=== PATIENT | male | born 1955 | race Caucasian/White ===

== ENCOUNTER 2019-07-19 10:16 | Outpatient (CLI) | payer OTHER, SELFPAY ==
--- NOTE | ~2019-07-19 | NM_ITS ---
EXAMINATION: NM bone scan limited area DATE: 07/19/2019 14:31 INDICATION: Knee pain TECHNIQUE: 25.1 mCi Tc-99m HDP was administered intravenously. Delayed grams or obtained of the bila teral knees, feet and ankles. COMPARISON: Bilateral knee MRI studies dated 06/21/2019, bilateral ankle MRI studies dated 05/16/2019 and bilateral knee radiographs dated 04/23/2019. FINDINGS: There is relatively symmetric mild increased joint centered activity at the patellofemoral and medial compartments of both knees is likely degenerative in etiology. Additional relatively symmetric distr ibution of joint centered uptake in the bilateral feet and ankles most prominent at the bilateral fir st metatarsophalangeal joints and in the region of the tarsal metatarsal and talonavicular joints. Th e degree of uptake appears lightly greater throughout the right foot pain in the left foot. IMPRESSION: 1. Typical pattern of likely degenerative joint centered uptake in the bilateral knees with is relati vely symmetric in the bilateral feet with the distribution is similar but with increased activity on the right. The asymmetry in the feet could be due to slight differences in severity of degenerative d isease or due to differences in perfusion potentially related to either arterial or venous insufficie ncy. Reviewed, dictated and finalized at location A. [facility] IMPRESSION: 1. Typical pattern of likely degenerative joint centered uptake in the bilatera l knees with is relatively symmetric in the bilateral feet with the distributio n is similar but with increased activity on the right. The asymmetry in the fee t could be due to slight differences in severity of degenerative disease or due to differences in perfusion potentially related to either arterial or venous i nsufficiency.
== END 2019-07-19 10:17 | disposition home or self-care (01) ==
LOC: ANHIMG 10:23
PROVIDERS: PCP Emergency Medicine; Visit Provider Orthopaedic Surgery
DX: M54.5 Low back pain (principal); R93.7 Abnormal findings on diagnostic imaging of other parts of musculoskeletal system
CPT/HCPCS: 78300; A9561

== ENCOUNTER 2020-01-24 01:23 | Inpatient (IN) | payer OTHER, MEDICAID, SELFPAY ==
[2020-01-24] VITALS (22 sets, daily range): BP systolic 135–158; BP diastolic 54–76; PULSE 68–97; RESP 17–33; TEMP 36.5–37.2; O2SAT 79–100; BMI 22.8
--- NOTE | ~2020-01-24 | XR_ITS ---
EXAMINATION: XR chest 1V portable DATE: 01/25/2020 06:34 INDICATION: Respiratory failure. TECHNIQUE: A single frontal view of the chest was obtained. COMPARISON: Chest 2 views 01/24/2020, chest CT 04/26/2019 FINDINGS: The lungs are hyperexpanded with lucencies, consistent with emphysema. There are airspace o pacities in right midlung zone. There is a small left pleural effusion. No pneumothorax. The right la teral costophrenic angle is excluded. The heart size is normal. There are changes of anterior fusion procedure in cervicothoracic spine and posterior fusion procedure in cervical spine. IMPRESSION: 1. Stable airspace opacities in right midlung zone, consistent with pneumonia. 2. Stable small left pleural effusion. 3. Severe emphysema. Reviewed, dictated and finalized at location A.
--- NOTE | ~2020-01-24 | XR_ITS ---
EXAMINATION: XR chest 2V DATE: 01/24/2020 01:57 INDICATION: Shortness of breath. Chronic obstructive pulmonary disease. TECHNIQUE: Frontal and lateral views of the chest were obtained. COMPARISON: Chest 2 views 06/09/2019, chest CT 04/26/2019 FINDINGS: The lungs are hyperexpanded with lucencies, consistent with emphysema. There is a small lef t pleural effusion. There are airspace opacities in right midlung zone. No pneumothorax. The heart si ze is normal. Calcified left hilar lymph nodes are consistent with old granulomatous disease. There a re changes of posterior fusion procedure in cervical spine and anterior fusion procedure in cervicoth oracic spine. IMPRESSION: 1. Worsened airspace opacities in right midlung zone, consistent with pneumonia. 2. Severe emphysema. 3. Small left pleural effusion. Reviewed, dictated and finalized at location A. IMPRESSION: 1. Worsened airspace opacities in right midlung zone, consistent with pneumonia . 2. Severe emphysema. 3. Small left pleural effusion.
--- NOTE | ~2020-01-24 | XR_ITS ---
EXAMINATION: XR chest 1V portable INDICATION: Shortness of breath TECHNIQUE: Portable AP chest at 0856 hours COMPARISON: 01/25/2020 FINDINGS: The lungs are hyperinflated. Airspace opacities of the right midlung zone persist without s ignificant change. There is no pleural effusion or pneumothorax. The cardiomediastinal silhouette is stable. Surgical changes are noted in the lower cervical spine and at the cervicothoracic junction. IMPRESSION: 1. Airspace opacities of the right midlung zone without significant change, consistent with pneumonia . Reviewed, dictated and finalized at location A. IMPRESSION: 1. Airspace opacities of the right midlung zone without significant change, con sistent with pneumonia.
--- NOTE | ~2020-01-24 | XR_ITS ---
EXAMINATION: XR chest 1V portable DATE: 01/26/2020 06:08 INDICATION: Respiratory failure. TECHNIQUE: A single frontal view of the chest was obtained on 2 radiographs. COMPARISON: Chest single view 01/25/2020 FINDINGS: The lungs are hyperexpanded with lucencies, consistent with emphysema. There are airspace o pacities in right midlung zone. There is a small left pleural effusion. No pneumothorax. The heart si ze is normal. There are changes of anterior fusion procedure in cervicothoracic spine and posterior f usion procedure in cervical spine. IMPRESSION: 1. Stable airspace opacities in right midlung zone, consistent with pneumonia. 2. Stable small left pleural effusion. 3. Severe emphysema. Reviewed, dictated and finalized at location A.
--- NOTE | ~2020-01-24 | XR_ITS ---
EXAMINATION: XR chest 1V portable INDICATION: Respiratory failure TECHNIQUE: Portable AP chest at 0557 hours COMPARISON: 01/26/2020 FINDINGS: Airspace opacities of the right midlung zone persist without significant change. There is n o pleural effusion or pneumothorax. The cardiomediastinal silhouette is normal. IMPRESSION: 1. Stable airspace opacities of the right midlung zone, consistent with pneumonia. Reviewed, dictated and finalized at location A. IMPRESSION: 1. Stable airspace opacities of the right midlung zone, consistent with pneumon ia.
--- NOTE | ~2020-01-24 | XR_ITS ---
EXAMINATION: XR chest 1V portable EXAM DATE: 01/31/2020 06:27 INDICATION: Follow-up infiltrates. TECHNIQUE: Portable AP frontal chest x-ray was obtained. Comparison is made to prior examination from 01/27/2020. FINDINGS: Significant interval progression in the previously seen small amount of acute airspace dise ase with now large amount of right mid and lower lung opacification with small regions of confluence. Development of small right pleural effusion. Only small amount of left-sided airspace disease. Asymm etry suggests this is most likely infection. No pneumothorax. Cardiomediastinal silhouette is normal. Cervical fusion hardware. There is aortic arteriosclerosis. IMPRESSION: 1. Significant progression in now extensive right-sided, small left-sided acute airspace disease lik sarita infection. Reviewed, dictated and finalized at location A. IMPRESSION: 1. Significant progression in now extensive right-sided, small left-sided acut e airspace disease likely infection.
--- NOTE | 2020-01-24 01:41 | ECG_ITS ---
Measurements Intervals [place] Rate: 84 P: 86 PA: 175 QRS: 77 QRSD: 101 T: 82 QT: 352 QTc: 417 Interpretive Statements SINUS RHYTHM POSSIBLE RIGHT ATRIAL ENLARGEMENT LEFT ATRIAL ENLARGEMENT BASELINE WANDER- I, II, III, AVL, AVF BORDERLINE ECG Electronically Signed On 01-24-2020 7:14:17 CDT by Wojciech Michaud D.O.
[2020-01-24] MEDS: ALBUTEROL SULFATE (*SP) AEROSOL 1 PUFF 8 PUFF INHALATION (02:23)
[2020-01-24 02:34] LABS: Base Excess ABG 22.9 mEq/l (+/-2.0); Carboxyhemoglobin 0.7 % THb (0-2.0); Fractional Inspired Oxygen 100 %; HCO3 ABG 57.9 mEq/l (22.0-26.0); Methemoglobin ABG 0.4 %THb (0-1.5); Oxygen Content ABG 17.3 %vol (16.0-22.0); Oxygen Saturation ABG 99.2 % (95.0-100.0); Oxyhemoglobin 97.9 % THb (90.0-100.0); PO2 ABG 237.4 mmHg (80.0-100.0); PO2 FiO2 Ratio Arterial Blood 2.37 %; Total Hemoglobin 12.2 g/dL (12.0-18.0)
[2020-01-24 02:35] LABS: Device NON-REBREATHER MASK; PCO2 ABG 157.6 mmHg (35.0-45.0); Site Drawn RIGHT BRACHIAL; pH ABG 7.183 (7.350-7.450)
[2020-01-24 02:38] LABS: Basophils Percent Auto 0.1 % (0.2-1.2); Hemoglobin 11.6 g/dL (14.0-18.0); Immature Granulocyte Absolute 0.12 K/mm3 (0.00-0.031); Immature Granulocyte Percent A 0.7 % (0-0.5); Lymphocytes Percent Auto 4.3 % (18.3-44.2); Mean Corpuscular HGB Conc 31.4 g/dl (32-36); Mean Corpuscular Volume 92.5 fl (80-100); Mean Platelet Volume 8.5 fl (7.4-10.4); Monocytes Absolute Auto 0.5 K/mm3 (0.1-0.6); Neutrophils Percent Auto 91.9 % (45.5-73.1); Platelet Count Result 160 k/mm3 (150-375); Red Cell Distribution Width 11.8 % (11.5-14.5); White Blood Count 16.4 K/mm3 (4.5-10.0)
[2020-01-24 02:46] LABS: Lactic Acid Reflex 0.5 mmol/L (0.7-2.1)
[2020-01-24 02:46] LABS: INR 1.1; Prothrombin Time 13.7 Seconds (11.1-14.7)
[2020-01-24 02:48] LABS: Lactate Dehydrogenase 414 U/L (313-618)
[2020-01-24 02:49] LABS: D Dimer 0.98 ug/mL (<0.48)
[2020-01-24 02:54] LABS: Anion Gap 14.99999 mmol/L (8-16); Blood Urea Nitrogen 27 mg/dL (9-20); Calcium 8.8 mg/dL (8.4-10.2); Carbon Dioxide > 40 mmol/L (22-30); Chloride 77 mmol/L (98-107); Estimated CRCL calculation 161 ml/min; Estimated Glomerular Filt Rate > 60; Glucose 137 mg/dL (75-110); Potassium 4.7 mmol/L (3.4-5.0); Sodium 132 mmol/L (137-145)
[2020-01-24 03:00] LABS: NT Pro B Type Natriuretic Pept 164 PG/ML (5-100); Troponin I < 0.012 ng/mL (0.000-0.034)
[2020-01-24 03:03] LABS: CRP 15.5 mg/dL (<1.0)
[2020-01-24] MEDS: SODIUM CHLORIDE 0.9% IV 1,000 ML 999 ML IV CONT (03:21)
--- NOTE | 2020-01-24 04:01 | ED.SOB ---
HPI - SOB/Dyspnea General Chief Complaint: Shortness of Breath/Dyspnea Stated Complaint: cp/sob Time Seen by Provider: 01/24/20 01:41 Source: patient Mode of arrival: EMS History of Present Illness HPI Narrative: This patient is a 64 year old male from [facility] who presents for evaluation of shortness of breath. PAtient has been having worsening productive cough and sob for 1 week. He has been evaluated at [facility] 3 times this week. He states he was seen today and he was diagnosed with pneumonia before discharge. Patient requested to be sent to [facility]. Staff at the [facility] reports patients' oxygen saturation dropped in to 60%. He also reported that he had chest pain but he denies pain current. He was on 2.5 L NC with oxygen saturation mid 90%. Related Data Home Medications Medication Instructions Recorded Confirmed carvedilol 6.25 mg tablet 6.25 mg PO BID tablet 05/08/19 amlodipine 10 mg PO DAILY 01/24/20 atorvastatin 01/24/20 azithromycin 01/24/20 besifloxacin [Besivance] 1 drp RIGHTEYE TID 01/24/20 01/24/20 bisacodyl [Dulcolax (bisacodyl)] 10 mg FL DAILY PRN 01/24/20 01/24/20 budesonide mg 01/24/20 bupropion HCl mg PO 01/24/20 carvedilol 01/24/20 diclofenac sodium PO 01/24/20 docusate sodium [Colace] PO 01/24/20 doxycycline hyclate 01/24/20 gabapentin 01/24/20 hydroxyzine HCl 01/24/20 ipratropium-albuterol ml INHALATION 01/24/20 loteprednol etabonate [Lotemax SM] 01/24/20 melatonin-pyridoxine (vit B6) 1 tablet PO HS PRN 01/24/20 01/24/20 [Melatonin (with B6)] prednisone 01/24/20 pregabalin 01/24/20 pregabalin [Lyrica] 150 mg PO BID 01/24/20 mvuxkenyombulyg-ZG-jazagmrgvot tablet PO 01/24/20 tamsulosin mg PO 01/24/20 Allergies Allergy/AdvReac Type Severity Reaction Status Date / Time No Known Allergies Allergy Verified 01/24/20 01:33 Review of Systems Review of Systems: All systems reviewed & are unremarkable except as noted in HPI and below Constitutional: Constitutional: Denies chills and Denies fever(s) ENT: Denies dizziness Cardiovascular: Cardiovascular: Reports chest pain Respiratory: Respiratory: Reports cough, Reports dyspnea and Reports wheezing Gastrointestinal: Gastrointestinal: Denies abdominal pain, Denies diarrhea, Denies nausea and Denies vomiting PMFSH Past Medical History Medical History Anxiety BPH (benign prostatic hyperplasia) Chronic lower back pain COPD (chronic obstructive pulmonary disease) Depression Emphysema of lung Generalized weakness HTN (hypertension) Inguinal hernia September 2011 Lung nodules RLL Neck injury Normocytic anemia Pneumonia Protein calorie malnutrition Surgical History Surgical History History of elbow surgery History of inguinal hernia repair History of spinal surgery C3-C6 (C3, 4, and 5 removed and replaced with hardware) post neck injury in April 2003 with nerve damage History of tonsillectomy History of vascular surgery Stents placed in lt leg Social History Social History Smoking status: Former smoker Smoking end date: 06/07/15 Alcohol intake: former Drinks per week: 0 Substance use: former Gender identity (if verbalized by the patient): Male Spiritual care concerns: No Agree to blood products: Yes Exam Const: General: alert and ill appearing acutely Orientation/consciousness: patient oriented x3 HENMT: Face and sinus: face symmetric Eyes: EOM: EOMs intact bilaterally Resp: Effort & Inspection: labored, tachypneic and uses accessory muscles Auscultation: rhonchi lower bilaterally Cardio: Rate: regular rate Rhythm: regular rhythm Heart sounds: no murmurs GI: GI Palp: Yes Soft to palpation, No Tenderness to palpation present (GI), No Guarding due to palpation p
[2020-01-24 04:19] LABS: Alveolar/Arterial O2 Gradient 72.2 mmHg; Base Excess ABG 11.3 mEq/l (+/-2.0); Fractional Inspired Oxygen 40 %; HCO3 ABG 43.6 mEq/l (22.0-26.0); Oxygen Content ABG 15.4 %vol (16.0-22.0); Oxygen Saturation ABG 90.5 % (95.0-100.0); Oxyhemoglobin 92.5 % THb (90.0-100.0); PO2 ABG 77.1 mmHg (80.0-100.0); PO2 FiO2 Ratio Arterial Blood 1.93 %; Total Hemoglobin 11.8 g/dL (12.0-18.0); pH ABG 7.185 (7.350-7.450)
[2020-01-24 04:20] LABS: Device NON-INVASIVE VENT; Non-Invasive Expiratory Pressure 6 CMH2O; Non-Invasive Inspiratory Pressure 14 CMH2O; Non-Invasive Vent Rate 22 /MIN; PCO2 ABG 118.2 mmHg (35.0-45.0); Site Drawn RIGHT BRACHIAL
[2020-01-24] MEDS: methylPREDNISolone SOD SUCC 125 MG VIAL IV PUSH (04:55)
--- NOTE | 2020-01-24 08:27 | PC.NURSE ---
This patient, Angus Stovall, was admitted to Intensive Care Unit-1 on 01/24/20 @ 0710. Oxygen and monitors applied. Patient oriented to hospital policies and general routines including ID bracelet, bed and alarms, visiting hours, pain management, procedures, bathroom and other care routines, personal items, smoking policy, room service/diet, and visiting hours. Valuables list has been completed. Information on how to activate the Rapid Response Team has been discussed. Patient is encouraged to report perceived risks to care and to ask questions if they do not understand what they are told or what they should do.
[2020-01-24 09:33] LABS: Alveolar/Arterial O2 Gradient 254.1 mmHg; Base Excess ABG 16.5 mEq/l (+/-2.0); Fractional Inspired Oxygen 60 %; HCO3 ABG 47.5 mEq/l (22.0-26.0); Oxygen Content ABG 14.8 %vol (16.0-22.0); Oxyhemoglobin 89.1 % THb (90.0-100.0); PO2 ABG 59.4 mmHg (80.0-100.0); PO2 FiO2 Ratio Arterial Blood 0.99 %; Total Hemoglobin 11.8 g/dL (12.0-18.0)
[2020-01-24 09:36] LABS: pH ABG 7.278 (7.350-7.450)
[2020-01-24 09:37] LABS: Device NON-INVASIVE VENT; Modified Allen's Test Pass; Non-Invasive Expiratory Pressure 10 CMH2O; Non-Invasive Inspiratory Pressure 20 CMH2O; Non-Invasive Vent Rate 22 /MIN; PCO2 ABG 103.9 mmHg (35.0-45.0); Site Drawn RIGHT RADIAL
--- NOTE | 2020-01-24 12:42 | WPDCNINT ---
Assessment and Plan Assessment and plan (1) HTN (hypertension): Qualifiers: Hypertension type: essential hypertension Qualified Code(s): I10 - Essential (primary) hypertension Code(s): I10 - Essential (primary) hypertension Status: Acute Assessment and Plan: p.r.n. hydralazine and Lopressor at this time (2) Acute and chronic respiratory failure: Code(s): J96.20 - Acute and chronic respiratory failure, unspecified whether with hypoxia or hypercapnia Status: Acute Assessment and Plan: Acute Respiratory failure secondary to severe COPD and possible community-acquired pneumonia Continue BiPAP support to prevent hypoxemia/hyp FiO2 dropped to 45% and EPAP decreased to 7 recheck ABG later today empiric Rocephin and azithromycin, steroids and Bronchodilators (3) COPD (chronic obstructive pulmonary disease): Code(s): J44.9 - Chronic obstructive pulmonary disease, unspecified Status: Acute Assessment and Plan: patient has severe COPD continue steroids and bronchodilators (4) Suspected COVID-19 virus infection: Code(s): Z20.828 - Contact with and (suspected) exposure to other viral communicable diseases Status: Acute Assessment and Plan: COVID-19 suspected. SARS-CoV-2 PCR sent and results pending Patient is in Airborne, Droplet and Contact Isolation DVT prophylaxis - Lovenox Stress ulcer prophylaxis - Nutrition - NPO Code Status - I spoke to patient and he is agreeable to intubation if needed and requests to be a full code at this time. Family updated at bedside Total Critical Care Time - 30minutes Due to a high probability of clinically significant, life threatening deterioration, the patient required my highest level of preparedness to intervene emergently and I personally spent this critical care time directly and personally managing the patient. This critical care time included obtaining a history; examining the patient; pulse oximetry; ordering and review of studies; arranging urgent treatment with development of a management plan; evaluation of patient's response to treatment; frequent reassessment; and discussions with other providers. It was exclusive of separately billable procedures and treating other patients and teaching time. Please see Assessment and Plan section and the rest of the note for further information on patient assessment and treatment [facility] [employer] Consult Note Consult date: 01/24/20 Time Seen: 11:00 HPI: Angus Stovall is a 64 year old male with past medical history of Hypertension, hyperlipidemia, peripheral vascular disease, severe COPD and home oxygen, benign prostatic hypertrophy, depression with anxiety presented early this morning to ED with chief complaint of shortness of breath and productive cough from last 1 week. Patient was seen at [facility] few times last week for similar complaints and was diagnosed with pneumonia and discharged on p.o. antibiotics. At this time in ED patient was found to be in hypercarbic and hypoxic respiratory failure. Started on IV antibiotics and BiPAP therapy for ventilation support. He was then admitted to ICU for further management and I was consulted to evaluate and manage patient respiratory failure. I saw the patient he was on BiPAP hence unable to provide any detailed history. Limited history was obtained from patient by asking leading questions. He told me that he was feeling better and his breathing was better he continues to have off and on cough. Limited review of system was obtained and patient denies fever, chest pain, nausea vomiting, abdominal pain, diarrhea, headache or constipation. Review of Systems Review of Systems: ROS unobtainable: Yes unobtainable due to medical condition [facility] Past Medical History Medical History Anxiety BPH (benign prostatic hyperplasia) Chronic lower back yadira
[2020-01-24] MEDS: SODIUM CHLORIDE 0.9% IV 250 ML 50 ML IV CONT (13:36)
[2020-01-24] MEDS: IPRATROPIUM BR 0.02% INH SOLN 0.5 MG/2.5 ML VIAL INHALATION ×2 (13:49→19:58)
[2020-01-24] MEDS: ALBUTEROL SULFATE NEB 2.5 MG/0.5 ML INH INHALATION ×2 (13:49→19:58)
--- NOTE | 2020-01-24 14:36 | PM.IMHP ---
H&P: HPI History of Present Illness Date/Time: 01/24/20 14:36 Chief complaint: acute respiratory with hypercapnea Narrative: Angus Stovall is a 64 year old male seen in icu. pt is on bipap or respiratory distress. t has been unwell for one week with cough. Denies fever. Pt was in [facility] for possible pneumonia transferred here when he started to desaturation. Pt has a history of hypertension,hyperlipidemia, peripheral vascular disease, and COPD, sees a pulmologist DR Donaldson and PCP DR Finney. He denies any CP, palpitations, headaches, dizziness, abdominal pain, dysuria. Today Wcc is high, CXR shows - Worsened airspace opacities in right midlung zone, consistent with pneumonia. 2. Severe emphysema. 3. Small left pleural effusion. Pt lives in [facility] since June because of generalised weakness and COPD. Pt had admission to hospital in 04/2019 with similar complaints. Pt is COVID tested because he is from a facility. Review of Systems Review of Systems: ROS unobtainable: Yes unobtainable due to medical condition Respiratory: Respiratory: Reports chest congestion, Reports cough, Reports dyspnea and Reports wheezing PMFSH Past Medical History Medical History Anxiety BPH (benign prostatic hyperplasia) Chronic lower back pain COPD (chronic obstructive pulmonary disease) Depression Emphysema of lung Generalized weakness HTN (hypertension) Inguinal hernia September 2011 Lung nodules RLL Neck injury Normocytic anemia Pneumonia Protein calorie malnutrition Surgical History Surgical History History of elbow surgery History of inguinal hernia repair History of spinal surgery C3-C6 (C3, 4, and 5 removed and replaced with hardware) post neck injury in April 2003 with nerve damage History of tonsillectomy History of vascular surgery Stents placed in lt leg Family History Family History Father Family history of malignant neoplasm, Onset Age: 77 Family history of malignant neoplasm of esophagus, Onset Age: 75 Mother Family history of dementia Social History Social History Smoking status: Former smoker Tobacco type: cigarettes Smoking end date: 06/07/15 Alcohol intake: never Drinks per week: 0 Substance use: never Gender identity (if verbalized by the patient): Male Sexual Orientation (if Verbalized by the Patient): Straight or Heterosexual Spiritual care concerns: No Agree to blood products: Yes Meds Home Medications and Allergies Home Medications Medication Instructions Recorded Confirmed Type acetaminophen 650 mg PO QID PRN 01/24/20 01/24/20 History alum-mag hydroxide-simeth [Mylanta See Rx Instructions .ROUTE 01/24/20 01/24/20 History Maximum Strength] .COMPLEX PRN amlodipine 10 mg PO DAILY 01/24/20 01/24/20 History atorvastatin 10 mg PO HS 01/24/20 01/24/20 History azithromycin 250 mg PO DAILY 01/24/20 01/24/20 History benzonatate 200 mg PO TID PRN 01/24/20 01/24/20 History besifloxacin [Besivance] 1 drp RIGHTEYE TID 01/24/20 01/24/20 History bisacodyl [Dulcolax (bisacodyl)] 10 mg WI DAILY PRN 01/24/20 01/24/20 History bromfenac [Prolensa] 1 drp RIGHTEYE DAILY 01/24/20 01/24/20 History budesonide 0.5 mg INHALATION BID 01/24/20 01/24/20 History bupropion HCl 150 mg PO DAILY 01/24/20 01/24/20 History carvedilol 6.25 mg PO BID 01/24/20 01/24/20 History diclofenac sodium 75 mg PO BID 01/24/20 01/24/20 History diphenhydramine HCl [Benadryl 25 mg PO BID PRN 01/24/20 01/24/20 History Allergy] docusate sodium [Colace] 100 mg PO BID 01/24/20 01/24/20 History guaifenesin 400 mg PO BID PRN 01/24/20 01/24/20 History hydroxyzine HCl See Rx Instructions .ROUTE .COMPLEX 01/24/20 01/24/20 History ipratropium-albuterol See Rx Instructions .
[2020-01-24] MEDS: carvediloL 6.25 MG TABLET PO (17:38)
[2020-01-24] MEDS: predniSONE 20 MG TABLET PO (17:39)
[2020-01-24] MEDS: DOCUSATE SODIUM 100 MG CAPSULE PO (17:39)
[2020-01-24] MEDS: SILVER SULFADIAZINE 1% CR 400 GM JAR (*BKC) 1 APPLIC TOPICAL (17:39)
[2020-01-24] MEDS: TRIAMCINOLONE ACET 0.1% CREAM 15 GM TUBE 1 APPLIC TOPICAL (17:40)
[2020-01-24] MEDS: methylPREDNISolone SOD SUCC 125 MG VIAL 60 MG IV PUSH (17:40)
[2020-01-24] MEDS: SODIUM CHLORIDE 0.9% IV 1,000 ML 50 ML IV CONT (17:51)
[2020-01-24 18:39] LABS: SARS-CoV-2 RNA PCR Negative
[2020-01-24] MEDS: BUDESONIDE RESPULE NEB 0.5 MG/2 ML AMP INHALATION (19:58)
[2020-01-24] MEDS: ATORVASTATIN 10 MG TABLET PO (23:30)
[2020-01-24] MEDS: TAMSULOSIN HCL 0.4 MG CAPSULE PO (23:30)
[2020-01-25] VITALS (29 sets, daily range): BP systolic 151–186; BP diastolic 70–82; PULSE 66–98; RESP 18–32; TEMP 35.9–37.1; O2SAT 92–99
[2020-01-25] MEDS: methylPREDNISolone SOD SUCC 125 MG VIAL 60 MG IV PUSH ×4 (02:06→18:03)
[2020-01-25] MEDS: IPRATROPIUM BR 0.02% INH SOLN 0.5 MG/2.5 ML VIAL INHALATION ×4 (02:16→20:21)
[2020-01-25] MEDS: ALBUTEROL SULFATE NEB 2.5 MG/0.5 ML INH INHALATION ×4 (02:17→20:21)
[2020-01-25 03:51] LABS: Alveolar/Arterial O2 Gradient 87.5 mmHg; Base Excess ABG 16.2 mEq/l (+/-2.0); Carboxyhemoglobin 0.3 % THb (0-2.0); Fractional Inspired Oxygen 35 %; Methemoglobin ABG 0.2 %THb (0-1.5); Oxygen Content ABG 15.5 %vol (16.0-22.0); Oxygen Saturation ABG 96.7 % (95.0-100.0); Oxyhemoglobin 96.2 % THb (90.0-100.0); PO2 FiO2 Ratio Arterial Blood 2.51 %; Reduced Hemoglobin 3.3 %THb (0-5.0); Total Hemoglobin 11.4 g/dL (12.0-18.0); pH ABG 7.447 (7.350-7.450)
[2020-01-25 03:54] LABS: Device NON-INVASIVE VENT; Modified Allen's Test Pass; Non-Invasive Vent Rate 22 /MIN; PCO2 ABG 63.7 mmHg (35.0-45.0); Site Drawn LEFT RADIAL
[2020-01-25 03:55] LABS: Non-Invasive Expiratory Pressure 7 CMH2O; Non-Invasive Inspiratory Pressure 20 CMH2O
[2020-01-25] MEDS: METOPROLOL TARTRATE INJ 5 MG/5 ML VIAL IV PUSH (06:06)
[2020-01-25] MEDS: DOCUSATE SODIUM 100 MG CAPSULE PO ×2 (08:31→18:03)
[2020-01-25] MEDS: buPROPion HCL XL (24 HR) 150 MG TABCR PO (08:31)
[2020-01-25] MEDS: amLODIPine BESYLATE 5 MG TABLET 10 MG PO (08:31)
[2020-01-25] MEDS: carvediloL 6.25 MG TABLET PO ×2 (08:31→18:02)
[2020-01-25] MEDS: MULTIVITAMINS THERAPEUTIC TAB (*BKC) 1 TABLET PO (08:31)
[2020-01-25] MEDS: BENZONATATE 100 MG CAPSULE 200 MG PO (08:32)
[2020-01-25] MEDS: TRIAMCINOLONE ACET 0.1% CREAM 15 GM TUBE 1 APPLIC TOPICAL ×2 (08:32→18:04)
[2020-01-25] MEDS: predniSONE 20 MG TABLET PO (08:32)
[2020-01-25 08:33] LABS: Basophils Percent Auto 0.1 % (0.2-1.2); Hematocrit 35.5 % (42.0-52.0); Hemoglobin 11.5 g/dL (14.0-18.0); Immature Granulocyte Absolute 0.05 K/mm3 (0.00-0.031); Immature Granulocyte Percent A 0.3 % (0-0.5); Lymphocytes Absolute Auto 0.59 K/mm3 (0.9-3.2); Lymphocytes Percent Auto 4.1 % (18.3-44.2); Mean Corpuscular HGB Conc 32.4 g/dl (32-36); Mean Corpuscular Volume 89.6 fl (80-100); Mean Platelet Volume 8.6 fl (7.4-10.4); Monocytes Absolute Auto 0.6 K/mm3 (0.1-0.6); Monocytes Percent Auto 4.2 % (2.6-8.5); Neutrophils Absolute Auto 13.2 K/mm3 (1.3-6.7); Neutrophils Percent Auto 91.3 % (45.5-73.1); Platelet Count Result 172 k/mm3 (150-375); Red Blood Count 3.96 M/mm3 (4.6-6.20); Red Cell Distribution Width 11.8 % (11.5-14.5); White Blood Count 14.5 K/mm3 (4.5-10.0)
[2020-01-25] MEDS: SILVER SULFADIAZINE 1% CR 400 GM JAR (*BKC) 1 APPLIC TOPICAL ×2 (08:33→18:04)
[2020-01-25 09:06] LABS: Alanine Aminotransferase 15 U/L (4-50); Albumin Level 3.8 g/dL (3.5-5.1); Alkaline Phosphatase 76 U/L (38-126); Anion Gap 8.99999 mmol/L (8-16); Aspartate Amino Transferase 20 U/L (17-59); Bilirubin,Total 0.3 mg/dL (0.2-1.3); Blood Urea Nitrogen 29 mg/dL (9-20); Carbon Dioxide > 40 mmol/L (22-30); Chloride 83 mmol/L (98-107); Estimated CRCL calculation 304 ml/min; Estimated Glomerular Filt Rate > 60; Glucose 131 mg/dL (75-110); Magnesium 1.9 mg/dL (1.6-2.3); Potassium 3.8 mmol/L (3.4-5.0); Sodium 132 mmol/L (137-145)
[2020-01-25] MEDS: BUDESONIDE RESPULE NEB 0.5 MG/2 ML AMP INHALATION ×2 (09:30→20:21)
[2020-01-25] MEDS: ENOXAPARIN 40 MG/0.4 ML SYRINGE SUB-Q (09:31)
[2020-01-25] MEDS: BISACODYL 10 MG SUPPOSITORY RECTAL (11:16)
--- NOTE | 2020-01-25 13:40 | WPDINTPN ---
Progress Note: A&P Assessment and Plan (1) Acute and chronic respiratory failure: Code(s): J96.20 - Acute and chronic respiratory failure, unspecified whether with hypoxia or hypercapnia Status: Acute Assessment and Plan: Acute Respiratory failure secondary to severe COPD and possible community-acquired pneumonia ABG reviewed this morning and has improved significantly with CO2 a down to close to his baseline patient has been on BiPAP support since admission. I will give him a break and switch him nasal cannula and monitor how he does. Will use BiPAP and p.r.n. and nightly basis for now if patient does well on BiPAP will consider transfer to step-down unit later today continue empiric Rocephin and azithromycin, steroids and Bronchodilators (2) HTN (hypertension): Qualifiers: Hypertension type: essential hypertension Qualified Code(s): I10 - Essential (primary) hypertension Code(s): I10 - Essential (primary) hypertension Status: Acute Assessment and Plan: on p.o. Norvasc and Coreg also on p.r.n. hydralazine and Lopressor at this time (3) COPD (chronic obstructive pulmonary disease): Code(s): J44.9 - Chronic obstructive pulmonary disease, unspecified Status: Acute Assessment and Plan: patient has severe COPD continue steroids and bronchodilators (4) Suspected COVID-19 virus infection: Code(s): Z20.828 - Contact with and (suspected) exposure to other viral communicable diseases Status: Acute Assessment and Plan: COVID-19 ruled out. SARS-CoV-2 PCR was negative Patient was on Airborne, Droplet and Contact Isolation which now has been discontinued. Additional Plan DVT prophylaxis - Lovenox Nutrition - Start clear liquid diet and advance as tolerated if patient's tolerates coming off BiPAP Code Status - patient is full code Critical Care Time - 30 minutes Due to a high probability of clinically significant, life threatening deterioration, the patient required my highest level of preparedness to intervene emergently and I personally spent this critical care time directly and personally managing the patient. This critical care time included obtaining a history; examining the patient; pulse oximetry; ordering and review of studies; arranging urgent treatment with development of a management plan; evaluation of patient's response to treatment; frequent reassessment; and discussions with other providers. It was exclusive of separately billable procedures and treating other patients and teaching time. Please see Assessment and Plan section and the rest of the note for further information on patient assessment and treatment Subjective Date/time seen: 01/25/20 Overnight events reviewed. Patient wore BiPAP overnight. Afebrile He feels much better and is breathing is improved. continues to to have dry cough Vitals acceptable Review of Systems Review of Systems: ROS unobtainable: Yes unobtainable due to medical condition Exam Narrative: Exam Narrative: General: Pt is awake alert on BiPAP and in no distress Lungs/Chest: Trachea central decreased breath sounds throughout B/L, No crackles or wheezing. Cardiac: RRR. Normal S1 S2. No murmurs Circulation: Pedal pulses are intact and symmetrical. Abdomen: Normal bowel sounds.. Soft. NT. ND. Extremities: No clubbing, cyanosis or edema. Warm : Acevedo in place Neurologic: Follows commands. AO x3 Moves all 4 extremities pupils are unequal with right is larger than left. Patient states this is chronic and has poor vision in his right eye Skin: No Rash Objective Data Vital Signs Vital Signs: Vital Signs - 24 hr 01/24/20 13:52 01/24/20 13:53 01/24/20 14:00 Temperature Pulse Rate 76 77 76 Respiratory Rate 22 H 22 H 22 H Blood Pressure 148/65 H Pulse Oximetry 100 99 01/24/20 16:00 01/24/20 16:41 01/24/20 17:38 Temperature 37.2 C Pulse Rate 75 83 86 Res
--- NOTE | 2020-01-25 14:27 | PM.IMPN ---
Progress Note: A&P Assessment and Plan (1) Acute and chronic respiratory failure: Code(s): J96.20 - Acute and chronic respiratory failure, unspecified whether with hypoxia or hypercapnia Status: Acute Assessment and Plan: Pt is on bipap, iv steroids, IV rocephin and iv zithromycin and breathing treatments. PT ABG still shows CO2 retention continue to watch respiratory status can transfer to IMU. ABG ordered for AM (2) Community acquired pneumonia: Code(s): J18.9 - Pneumonia, unspecified organism Status: Acute Assessment and Plan: WCC is high, BC are pending sputum culture are pending, continue IV rocephin and IV zithromax (3) COPD (chronic obstructive pulmonary disease): Code(s): J44.9 - Chronic obstructive pulmonary disease, unspecified Status: Acute Assessment and Plan: History of copd pt lives in [facility] because of his chronic illness. Pt is on oral steroids and breathing treatments in the facility. (4) Emphysema of lung: Code(s): J43.9 - Emphysema, unspecified Status: Acute Assessment and Plan: HIstory of COPD sees DR Donaldson pulmology. Subjective Date/time seen: 01/25/20 14:27 Interval history: Wilman is a 64 year old male seen in icu. pt is on bipap or respiratory distress. Pt has been unwell for one week with cough. Denies fever. Pt was in [facility] for possible pneumonia transferred here when he started to desaturation. Pt ABG is improving CO2 still remains high. PT to be transfered to IMU must remain on BIPAP. today. Pt is concerned about his GB and constipation issues which i will look into tomorrow. Review of Systems Cardiovascular: Cardiovascular: Denies chest pain Respiratory: Respiratory: Reports chest congestion, Reports cough, Reports dyspnea, Reports dyspnea on exertion and Reports wheezing Exam Const: Other: Respiratory distress on BIPAP Looks unwell SOB at rest Chronically ill appearing Resp: Effort & Inspection: audible wheezes Auscultation: wheezes Cardio: Jugular venous distension: no JVD Rhythm: regular rhythm Heart sounds: S1 normal heart sound present and S2 normal heart sound present GI: Inspection: normal to inspection Auscultation: normal bowel sounds Objective Data Vital Signs Vital Signs: Vital Signs - 24 hr 01/24/20 16:00 01/24/20 16:41 01/24/20 17:38 Temperature 37.2 C Pulse Rate 75 83 86 Respiratory Rate 22 H 30 H Blood Pressure 150/76 H Pulse Oximetry 100 100 01/24/20 18:00 01/24/20 19:58 01/24/20 20:09 Temperature Pulse Rate 87 77 76 Respiratory Rate 26 H 30 H 33 H Blood Pressure 158/71 H Pulse Oximetry 98 97 01/25/20 00:00 01/25/20 02:00 01/25/20 02:17 Temperature Pulse Rate 69 68 75 Respiratory Rate 20 22 H 26 H Blood Pressure 157/76 H Pulse Oximetry 98 99 98 01/25/20 02:25 01/25/20 04:00 01/25/20 04:30 Temperature 36.9 C Pulse Rate 72 75 Respiratory Rate 25 H 22 H Blood Pressure 178/80 H 160/71 H Pulse Oximetry 99 01/25/20 05:00 01/25/20 05:22 01/25/20 06:00 Temperature Pulse Rate 66 70 Respiratory Rate 22 H 22 H Blood Pressure 151/70 H 178/73 H Pulse Oximetry 96 99 01/25/20 06:06 01/25/20 08:00 01/25/20 08:31 Temperature 37.1 C Pulse Rate 66 85 82 Respiratory Rate 24 H Blood Pressure 186/82 H Pulse Oximetry 96 01/25/20 09:30 01/25/20 09:55 01/25/20 10:00 Temperature Pulse Rate 85 80 84 Respiratory Rate 20 20 21 H Blood Pressure 168/75 H Pulse Oximetry 98 01/25/20 12:00 01/25/20 14:13 01/25/20 14:14 Temperature 37.1 C Pulse Rate 81 90 88 Respiratory Rate 22 H 30 H 26 H Blood Pressure 175/75 H Pulse Oximetry 92 98 01/25/20 14:26 Temperature Pulse Rate 88 Respiratory Rate 32 H Blood Pressure Pulse Oximetry Intake/Output Intake/Output: Intake & Output 01/22/20 01/23/20 01/24/20 01/25/20 23:59 23:59 23:59 23:59 Intake Total 1700 809
--- NOTE | 2020-01-25 15:56 | PC.NURSE ---
This patient, Angus Stovall, was received from ICU 8 on 01/25/20 at 1556.Report received from RADHA Woodson. Patient/family oriented to unit policies and routines
[2020-01-25 20:33] LABS: Alveolar/Arterial O2 Gradient 27.7 mmHg; Base Excess ABG 19.2 mEq/l (+/-2.0); Fractional Inspired Oxygen 28 %; HCO3 ABG 48.6 mEq/l (22.0-26.0); Oxygen Content ABG 16.2 %vol (16.0-22.0); Oxygen Saturation ABG 93.2 % (95.0-100.0); Oxyhemoglobin 93.3 % THb (90.0-100.0); PO2 ABG 72.1 mmHg (80.0-100.0); PO2 FiO2 Ratio Arterial Blood 2.58 %; Total Hemoglobin 12.3 g/dL (12.0-18.0); pH ABG 7.377 (7.350-7.450)
[2020-01-25 20:35] LABS: Device NASAL CANNULA; Modified Allen's Test Pass; PCO2 ABG 84.6 mmHg (35.0-45.0); Site Drawn LEFT RADIAL
[2020-01-25] MEDS: ALPRAZolam 0.5 MG TABLET PO (21:09)
[2020-01-25] MEDS: ATORVASTATIN 10 MG TABLET PO (21:09)
[2020-01-25] MEDS: MELATONIN 3 MG TABLET 9 MG PO (21:09)
[2020-01-25] MEDS: TAMSULOSIN HCL 0.4 MG CAPSULE PO (21:10)
[2020-01-26] VITALS (28 sets, daily range): BP systolic 139–198; BP diastolic 60–88; PULSE 62–95; RESP 16–31; TEMP 35.7–36.9; O2SAT 96–100
[2020-01-26] MEDS: methylPREDNISolone SOD SUCC 125 MG VIAL 60 MG IV PUSH ×2 (00:28→05:11)
[2020-01-26] MEDS: ALBUTEROL SULFATE NEB 2.5 MG/0.5 ML INH INHALATION ×4 (01:36→21:05)
[2020-01-26] MEDS: IPRATROPIUM BR 0.02% INH SOLN 0.5 MG/2.5 ML VIAL INHALATION ×4 (01:36→21:05)
[2020-01-26 04:51] LABS: Hemoglobin 10.8 g/dL (14.0-18.0); Mean Corpuscular HGB Conc 32.7 g/dl (32-36); Mean Corpuscular Volume 88.7 fl (80-100); Mean Platelet Volume 8.7 fl (7.4-10.4); Platelet Count Result 184 k/mm3 (150-375); Red Blood Count 3.72 M/mm3 (4.6-6.20); Red Cell Distribution Width 11.9 % (11.5-14.5); White Blood Count 12.3 K/mm3 (4.5-10.0)
[2020-01-26 05:07] LABS: Alanine Aminotransferase 12 U/L (4-50); Albumin Level 3.3 g/dL (3.5-5.1); Alkaline Phosphatase 68 U/L (38-126); Anion Gap 8.99999 mmol/L (8-16); Aspartate Amino Transferase 19 U/L (17-59); Bilirubin,Total 0.4 mg/dL (0.2-1.3); Blood Urea Nitrogen 26 mg/dL (9-20); Calcium 8.8 mg/dL (8.4-10.2); Carbon Dioxide > 40 mmol/L (22-30); Chloride 82 mmol/L (98-107); Estimated CRCL calculation 160 ml/min; Estimated Glomerular Filt Rate > 60; Glucose 148 mg/dL (75-110); Magnesium 1.9 mg/dL (1.6-2.3); Potassium 3.5 mmol/L (3.4-5.0); Sodium 131 mmol/L (137-145)
[2020-01-26 05:13] LABS: Alveolar/Arterial O2 Gradient 84.3 mmHg; Base Excess ABG 18.4 mEq/l (+/-2.0); Carboxyhemoglobin 0.3 % THb (0-2.0); Fractional Inspired Oxygen 35 %; HCO3 ABG 46.1 mEq/l (22.0-26.0); Methemoglobin ABG 0.2 %THb (0-1.5); Oxygen Content ABG 15.8 %vol (16.0-22.0); Oxygen Saturation ABG 95.9 % (95.0-100.0); PO2 ABG 82.6 mmHg (80.0-100.0); PO2 FiO2 Ratio Arterial Blood 2.36 %; Reduced Hemoglobin 4.5 %THb (0-5.0); Total Hemoglobin 11.8 g/dL (12.0-18.0)
[2020-01-26 05:16] LABS: Device NON-INVASIVE VENT; Modified Allen's Test Pass; Non-Invasive Expiratory Pressure 7 CMH2O; Non-Invasive Inspiratory Pressure 20 CMH2O; Non-Invasive Vent Rate 22 /MIN; PCO2 ABG 71.1 mmHg (35.0-45.0); Site Drawn LEFT RADIAL
[2020-01-26] MEDS: buPROPion HCL XL (24 HR) 150 MG TABCR PO (08:31)
[2020-01-26] MEDS: amLODIPine BESYLATE 5 MG TABLET 10 MG PO (08:31)
[2020-01-26] MEDS: carvediloL 6.25 MG TABLET PO ×2 (08:31→18:03)
[2020-01-26] MEDS: DOCUSATE SODIUM 100 MG CAPSULE PO ×2 (08:32→18:04)
[2020-01-26] MEDS: SILVER SULFADIAZINE 1% CR 400 GM JAR (*BKC) 1 APPLIC TOPICAL ×2 (08:32→18:04)
[2020-01-26] MEDS: ENOXAPARIN 40 MG/0.4 ML SYRINGE SUB-Q (08:32)
[2020-01-26] MEDS: MULTIVITAMINS THERAPEUTIC TAB (*BKC) 1 TABLET PO (08:32)
[2020-01-26] MEDS: TRIAMCINOLONE ACET 0.1% CREAM 15 GM TUBE 1 APPLIC TOPICAL ×2 (08:32→18:04)
[2020-01-26] MEDS: BUDESONIDE RESPULE NEB 0.5 MG/2 ML AMP INHALATION ×2 (08:57→21:05)
--- NOTE | 2020-01-26 12:54 | PM.IMPN ---
Progress Note: A&P Assessment and Plan (1) Acute and chronic respiratory failure: Code(s): J96.20 - Acute and chronic respiratory failure, unspecified whether with hypoxia or hypercapnia Status: Acute Assessment and Plan: Pt is on bipap PRN now, Pt is on iv steroids, IV rocephin and iv zithromycin and breathing treatments. Pt ABG still shows CO2 retention continue to watch respiratory status Change BIPAP to PRN. ABG ordered for AM Wean down iv steroids. Hopeful discharge soon back to his facility (2) Community acquired pneumonia: Code(s): J18.9 - Pneumonia, unspecified organism Status: Acute Assessment and Plan: WCC is high, BC are pending, sputum culture is NEGATIVE, continue IV rocephin and IV zithromax (3) COPD (chronic obstructive pulmonary disease): Code(s): J44.9 - Chronic obstructive pulmonary disease, unspecified Status: Acute Assessment and Plan: History of copd pt lives in [facility] because of his chronic illness. Pt is on oral steroids and breathing treatments in the facility. (4) Emphysema of lung: Code(s): J43.9 - Emphysema, unspecified Status: Acute Assessment and Plan: HIstory of COPD sees DR Donaldson pulmology. Subjective Date/time seen: 01/26/20 12:54 Interval history: Wilman is a 64 year old male seen in icu. pt is on bipap or respiratory distress. Pt has been unwell for one week with cough. Denies fever. Pt was in [facility] for possible pneumonia transferred here when he started to desaturation. Pt ABG is improving CO2 still remains high much better since admission. Concerns of GB, liver function appears fine. Pt not tolerating continuous BIPAP. Pt can keep BIPAP on PRN today. Review of Systems Review of Systems: All systems reviewed & are unremarkable except as noted in HPI and below Respiratory: Respiratory: Reports chest congestion, Reports cough, Reports excessive phlegm production, Reports dyspnea and Reports wheezing Exam Narrative: Exam Narrative: Chronically ill, unwell on BIPAP Chest: Chest palpation & inspection: normal inspection of the chest Resp: Auscultation: wheezes Cardio: Jugular venous distension: no JVD Rhythm: regular rhythm Heart sounds: S1 normal heart sound present and S2 normal heart sound present GI: Inspection: normal to inspection Auscultation: normal bowel sounds Skin: General skin exam: normal color and dry skin Neuro: Cranial nerves: Yes CN's II-XII intact bilaterally and Yes Equal, round and reactive pupils present Cognition (Neuro): normal cognition Speech: normal speech Motor exam (neuro): 5/5 motor strength present throughout Extrem: General: normal to inspection Psych: Appearance: grossly normal Mental Status: mental status grossly normal Objective Data Vital Signs Vital Signs: Vital Signs - 24 hr 01/25/20 14:00 01/25/20 14:13 01/25/20 14:14 Temperature Pulse Rate 78 90 88 Respiratory Rate 20 30 H 26 H Blood Pressure Pulse Oximetry 97 98 01/25/20 14:26 01/25/20 16:00 01/25/20 16:04 Temperature 37.1 C Pulse Rate 88 98 88 Respiratory Rate 32 H 20 Blood Pressure 168/72 H Pulse Oximetry 97 01/25/20 18:00 01/25/20 18:02 01/25/20 19:43 Temperature 35.9 C L Pulse Rate 87 98 79 Respiratory Rate 18 Blood Pressure 165/73 H Pulse Oximetry 95 01/25/20 20:00 01/25/20 20:21 01/25/20 20:35 Temperature Pulse Rate 78 72 75 Respiratory Rate 24 H 28 H Blood Pressure Pulse Oximetry 98 98 01/25/20 22:00 01/26/20 00:00 01/26/20 01:36 Temperature 36.1 C L Pulse Rate 69 63 69 Respiratory Rate 22 H 22 H Blood Pressure 144/68 H Pulse Oximetry 99 01/26/20 01:44 01/26/20 02:00 01/26/20 04:00 Temperature 35.7 C L Pulse Rate 69 66 64 Respiratory Rate 22 H 24 H Blood Pressure 147/79 H Pulse Oximetry 97 99 01/26/20 06:00 01/26/20 08:00 01/26/20 08:31 Temperature 36.5 C Pulse Rat
[2020-01-26] MEDS: methylPREDNISolone SOD SUCC 40 MG VIAL IV PUSH (18:05)
[2020-01-26] MEDS: ALPRAZolam 0.5 MG TABLET PO (18:27)
[2020-01-26] MEDS: ATORVASTATIN 10 MG TABLET PO (21:49)
[2020-01-26] MEDS: TAMSULOSIN HCL 0.4 MG CAPSULE PO (21:50)
[2020-01-26] MEDS: MELATONIN 3 MG TABLET 9 MG PO (21:50)
[2020-01-27] VITALS (23 sets, daily range): BP systolic 136–166; BP diastolic 55–99; PULSE 61–88; RESP 18–27; TEMP 36.4–36.7; O2SAT 95–100
[2020-01-27] MEDS: methylPREDNISolone SOD SUCC 40 MG VIAL IV PUSH ×4 (00:32→20:10)
[2020-01-27] MEDS: IPRATROPIUM BR 0.02% INH SOLN 0.5 MG/2.5 ML VIAL INHALATION ×4 (01:53→19:18)
[2020-01-27] MEDS: ALBUTEROL SULFATE NEB 2.5 MG/0.5 ML INH INHALATION ×4 (01:53→19:18)
[2020-01-27 04:43] LABS: Hemoglobin 9.9 g/dL (14.0-18.0); Mean Corpuscular Hemoglobin 28.9 pg (26-34); Mean Corpuscular Volume 87.7 fl (80-100); Mean Platelet Volume 8.5 fl (7.4-10.4); Platelet Count Result 186 k/mm3 (150-375); Red Blood Count 3.42 M/mm3 (4.6-6.20); Red Cell Distribution Width 11.9 % (11.5-14.5); White Blood Count 13.8 K/mm3 (4.5-10.0)
[2020-01-27 05:01] LABS: Alanine Aminotransferase 12 U/L (4-50); Alkaline Phosphatase 59 U/L (38-126); Anion Gap 7.99999 mmol/L (8-16); Aspartate Amino Transferase 15 U/L (17-59); Bilirubin,Total 0.2 mg/dL (0.2-1.3); Blood Urea Nitrogen 30 mg/dL (9-20); Calcium 8.6 mg/dL (8.4-10.2); Carbon Dioxide > 40 mmol/L (22-30); Chloride 82 mmol/L (98-107); Estimated CRCL calculation 160 ml/min; Estimated Glomerular Filt Rate > 60; Glucose 159 mg/dL (75-110); Magnesium 1.8 mg/dL (1.6-2.3); Potassium 3.7 mmol/L (3.4-5.0); Sodium 130 mmol/L (137-145)
[2020-01-27] MEDS: BUDESONIDE RESPULE NEB 0.5 MG/2 ML AMP INHALATION ×2 (07:36→19:18)
[2020-01-27 07:47] LABS: Alveolar/Arterial O2 Gradient 74.4 mmHg; Base Excess ABG 12.1 mEq/l (+/-2.0); Fractional Inspired Oxygen 35 %; HCO3 ABG 38.4 mEq/l (22.0-26.0); Oxygen Content ABG 15.9 %vol (16.0-22.0); Oxygen Saturation ABG 97.9 % (95.0-100.0); Oxyhemoglobin 96.8 % THb (90.0-100.0); PCO2 ABG 59.1 mmHg (35.0-45.0); PO2 ABG 106.4 mmHg (80.0-100.0); PO2 FiO2 Ratio Arterial Blood 3.04 %; Total Hemoglobin 11.6 g/dL (12.0-18.0); pH ABG 7.431 (7.350-7.450)
[2020-01-27 07:48] LABS: Device NON-INVASIVE VENT; Modified Allen's Test Pass; Non-Invasive Expiratory Pressure 7 CMH2O; Non-Invasive Inspiratory Pressure 20 CMH2O; Non-Invasive Vent Rate 22 /MIN; Site Drawn LEFT RADIAL
[2020-01-27] MEDS: DOCUSATE SODIUM 100 MG CAPSULE PO ×2 (08:32→18:13)
[2020-01-27] MEDS: ENOXAPARIN 40 MG/0.4 ML SYRINGE SUB-Q (08:32)
[2020-01-27] MEDS: TRIAMCINOLONE ACET 0.1% CREAM 15 GM TUBE 1 APPLIC TOPICAL (08:32)
[2020-01-27] MEDS: MULTIVITAMINS THERAPEUTIC TAB (*BKC) 1 TABLET PO (08:33)
[2020-01-27] MEDS: buPROPion HCL XL (24 HR) 150 MG TABCR PO (08:33)
[2020-01-27] MEDS: SILVER SULFADIAZINE 1% CR 400 GM JAR (*BKC) 1 APPLIC TOPICAL (08:34)
[2020-01-27] MEDS: carvediloL 6.25 MG TABLET PO ×2 (08:39→18:13)
[2020-01-27] MEDS: amLODIPine BESYLATE 5 MG TABLET 10 MG PO (08:40)
--- NOTE | 2020-01-27 10:09 | PCPTNOTE ---
Orders received...patient is admitted from [facility], where he was on long-term [facility] care... he was wc bound, did not walk, and was dependent with transfers, moving from bed to/from with a lillian lift..he is not appropriate to be seen by skilled PT...spoke with Dr Parks, and CC, whose understanding was that patient would be returning to [facility] care.
--- NOTE | 2020-01-27 10:20 | PM.IMPN ---
Progress Note: A&P Assessment and Plan (1) Acute and chronic respiratory failure: Qualifiers: Respiratory failure complication: hypoxia and hypercapnia Qualified Code(s): J96.21 - Acute and chronic respiratory failure with hypoxia; J96.22 - Acute and chronic respiratory failure with hypercapnia Code(s): J96.20 - Acute and chronic respiratory failure, unspecified whether with hypoxia or hypercapnia Status: Acute Assessment and Plan: Bipap at night iv steroids, IV rocephin and iv zithromycin and breathing treatments. CO2 down to 59 To medical floor (2) Community acquired pneumonia: Qualifiers: Laterality: unspecified laterality Qualified Code(s): J18.9 - Pneumonia, unspecified organism Code(s): J18.9 - Pneumonia, unspecified organism Status: Acute Assessment and Plan: continue IV rocephin and IV zithromax (3) COPD (chronic obstructive pulmonary disease): Qualifiers: COPD type: COPD with acute exacerbation Qualified Code(s): J44.1 - Chronic obstructive pulmonary disease with (acute) exacerbation Code(s): J44.9 - Chronic obstructive pulmonary disease, unspecified Status: Acute Assessment and Plan: Sees Dr. Donaldson Subjective Date/time seen: 01/27/20 10:20 Interval history: 01/26 c/o mild chronic postprandial indigestion. Usually takes mylanta. Neuropathy. Nonambulatory. Denied pain. Tolerated diet. Review of Systems Review of Systems: All systems reviewed & are unremarkable except as noted in HPI and below Exam Narrative: Exam Narrative: HEENT: EOMI, PERRL, sclerae nonicteric, pharyngeal mucosa pink and intact NECK: No JVD CHEST: Diffuse inspiratory and expiratory rhonchi. Normal effort. HEART: NL S1/S2, regular, no murmur ABDOMEN: BS+, soft, nontender, no mass, no bruits EXTREMITIES: No cyanosis, edema, or clubbing NEUROLOGIC: CN intact and symmetric to inspection. MUSCULOSKELETAL: Tone and strength symmetric. PSYCH: Alert. Oriented to person, place, and time. Objective Data Vital Signs Vital Signs: Vital Signs - 24 hr 01/26/20 11:11 01/26/20 12:00 01/26/20 13:25 Temperature 97.5 F L Pulse Rate 73 71 68 Respiratory Rate 23 H 31 H 20 Blood Pressure 154/87 H Pulse Oximetry 96 100 01/26/20 13:35 01/26/20 13:40 01/26/20 14:00 Temperature Pulse Rate 72 68 77 Respiratory Rate 20 22 H Blood Pressure Pulse Oximetry 96 01/26/20 16:00 01/26/20 18:00 01/26/20 18:03 Temperature 98.4 F Pulse Rate 91 83 94 Respiratory Rate 26 H Blood Pressure 139/60 Pulse Oximetry 99 01/26/20 19:39 01/26/20 20:00 01/26/20 21:00 Temperature 97.6 F Pulse Rate 70 71 62 Respiratory Rate 16 16 22 H Blood Pressure 141/69 H Pulse Oximetry 98 98 01/26/20 21:07 01/26/20 21:09 01/26/20 21:13 Temperature Pulse Rate 62 62 62 Respiratory Rate 22 H 22 H 22 H Blood Pressure Pulse Oximetry 100 99 01/26/20 22:00 01/27/20 00:00 01/27/20 01:50 Temperature 97.6 F Pulse Rate 62 66 68 Respiratory Rate 23 H 25 H Blood Pressure 136/67 Pulse Oximetry 99 01/27/20 01:55 01/27/20 01:58 01/27/20 02:00 Temperature Pulse Rate 68 68 72 Respiratory Rate 23 H 25 H Blood Pressure Pulse Oximetry 99 01/27/20 04:00 01/27/20 06:00 01/27/20 07:30 Temperature 97.7 F Pulse Rate 61 65 69 Respiratory Rate 23 H 23 H Blood Pressure 148/99 H Pulse Oximetry 99 96 01/27/20 07:37 01/27/20 07:53 01/27/20 08:00 Temperature 97.6 F Pulse Rate 65 71 70 Respiratory Rate 26 H 27 H 18 Blood Pressure 166/75 H Pulse Oximetry 100 01/27/20 08:39 01/27/20 10:05 Temperature Pulse Rate 70 Respiratory Rate Blood Pressure Pulse Oximetry 96 Intake/Output Intake/Output: Intake & Output 01/24/20 01/25/20 01/26/20 01/27/20 23:59 23:59 23:59 23:59 Intake Total 1700 1359 1650 550 Output Total 063 541 5701 325 Balance 825 1009 150 225 Meds/Results Medic
[2020-01-27] MEDS: MAGNESIUM HYDROXIDE SUSP 30 ML UDC PO (11:12)
--- NOTE | 2020-01-27 12:25 | PC.NURSE ---
This patient, Angus Stovall, was received from [facility] 204 on 01/27/20 at 1215. Personal belongings list checked and signed. Patient/family oriented to unit policies and routines
--- NOTE | 2020-01-27 12:45 | PCOTNOTE ---
OT orders received. Patient was admitted from [facility] where he lives on skilled nursing care. He is w/c bound at baseline and receives assist with all ADLs. Per CC, patient is to return to [place] with skilled nursing care. No skilled OT indicated at this time.
--- NOTE | 2020-01-27 13:18 | PC.NURSE ---
This patient, Angus Stovall, was transferred to [[id number] ] on 01/27/20 at 1218. Personal belongings sent with patient. Belongings list checked. Report given to [Richard GARCIA ]. Appropriate documentation sent with patient.
[2020-01-27] MEDS: ALPRAZolam 0.5 MG TABLET PO (13:24)
[2020-01-27 14:58] LABS: SARS-CoV-2 RNA PCR Negative
[2020-01-27] MEDS: ACETAMINOPHEN 325 MG TABLET 650 MG PO (18:37)
[2020-01-27] MEDS: TAMSULOSIN HCL 0.4 MG CAPSULE PO (20:12)
[2020-01-27] MEDS: MELATONIN 3 MG TABLET 9 MG PO (20:12)
[2020-01-27] MEDS: ATORVASTATIN 10 MG TABLET PO (20:12)
[2020-01-28] VITALS (17 sets, daily range): BP systolic 134–149; BP diastolic 62–65; PULSE 68–99; RESP 18–26; TEMP 36.4–37.3; O2SAT 93–99
[2020-01-28] MEDS: methylPREDNISolone SOD SUCC 40 MG VIAL IV PUSH ×5 (01:06→23:02)
[2020-01-28] MEDS: ALBUTEROL SULFATE NEB 2.5 MG/0.5 ML INH INHALATION ×4 (02:00→19:47)
[2020-01-28] MEDS: IPRATROPIUM BR 0.02% INH SOLN 0.5 MG/2.5 ML VIAL INHALATION ×4 (02:00→19:49)
[2020-01-28 06:32] LABS: Hematocrit 31.6 % (42.0-52.0); Hemoglobin 10.2 g/dL (14.0-18.0); Mean Corpuscular HGB Conc 32.3 g/dl (32-36); Mean Corpuscular Hemoglobin 28.4 pg (26-34); Mean Platelet Volume 8.6 fl (7.4-10.4); Platelet Count Result 199 k/mm3 (150-375); Red Blood Count 3.59 M/mm3 (4.6-6.20); Red Cell Distribution Width 11.9 % (11.5-14.5); White Blood Count 19.4 K/mm3 (4.5-10.0)
[2020-01-28 07:12] LABS: Alanine Aminotransferase 13 U/L (4-50); Albumin Level 3.1 g/dL (3.5-5.1); Alkaline Phosphatase 55 U/L (38-126); Anion Gap 6.99999 mmol/L (8-16); Aspartate Amino Transferase 15 U/L (17-59); Bilirubin,Total 0.2 mg/dL (0.2-1.3); Blood Urea Nitrogen 21 mg/dL (9-20); Calcium 8.6 mg/dL (8.4-10.2); Carbon Dioxide > 40 mmol/L (22-30); Chloride 82 mmol/L (98-107); Estimated CRCL calculation 158 ml/min; Estimated Glomerular Filt Rate > 60; Glucose 147 mg/dL (75-110); Magnesium 1.9 mg/dL (1.6-2.3); Potassium 3.9 mmol/L (3.4-5.0); Sodium 129 mmol/L (137-145)
[2020-01-28] MEDS: BUDESONIDE RESPULE NEB 0.5 MG/2 ML AMP INHALATION ×2 (08:08→19:49)
[2020-01-28] MEDS: buPROPion HCL XL (24 HR) 150 MG TABCR PO (09:18)
[2020-01-28] MEDS: amLODIPine BESYLATE 5 MG TABLET 10 MG PO (09:18)
[2020-01-28] MEDS: carvediloL 6.25 MG TABLET PO ×2 (09:18→16:49)
[2020-01-28] MEDS: DOCUSATE SODIUM 100 MG CAPSULE PO ×2 (09:19→16:50)
[2020-01-28] MEDS: ENOXAPARIN 40 MG/0.4 ML SYRINGE SUB-Q (09:19)
[2020-01-28] MEDS: MULTIVITAMINS THERAPEUTIC TAB (*BKC) 1 TABLET PO (09:20)
[2020-01-28] MEDS: MAG HYDROX/AL HYDROX/SIMETH 30 ML UDC PO (10:28)
[2020-01-28 10:49] LABS: Creatinine Urine 77.2 mg/dL
[2020-01-28 10:51] LABS: Sodium Urine Random 21 meq/L
--- NOTE | 2020-01-28 17:03 | PM.IMPN ---
Progress Note: A&P Assessment and Plan (1) Acute and chronic respiratory failure: Qualifiers: Respiratory failure complication: hypoxia and hypercapnia Qualified Code(s): J96.21 - Acute and chronic respiratory failure with hypoxia; J96.22 - Acute and chronic respiratory failure with hypercapnia Code(s): J96.20 - Acute and chronic respiratory failure, unspecified whether with hypoxia or hypercapnia Status: Acute Assessment and Plan: patient is tolerating BiPAP at night. He is requesting trilogy at the custodial. Last ABG showing pCO2 59. Back to his baseline 2.5 L. Continue steroids, antibiotics and nebulizer treatments. (2) Community acquired pneumonia: Qualifiers: Laterality: unspecified laterality Qualified Code(s): J18.9 - Pneumonia, unspecified organism Code(s): J18.9 - Pneumonia, unspecified organism Status: Acute Assessment and Plan: CXR showing RML airspace disease. WBC climbing but suspect related to steroids. Continue IV zithromax and will add back Rocephin. BCx NGTD. (3) COPD (chronic obstructive pulmonary disease): Qualifiers: COPD type: COPD with acute exacerbation Qualified Code(s): J44.1 - Chronic obstructive pulmonary disease with (acute) exacerbation Code(s): J44.9 - Chronic obstructive pulmonary disease, unspecified Status: Acute Assessment and Plan: COPD exacerbation. Currently on nebs and Solu-Medrol. Minimal wheezing now. Back at baseline O2 requirement. Will change to oral steroids. Follow up with Dr. Donaldson in the clinic. (4) Hyponatremia: Code(s): E87.1 - Hypo-osmolality and hyponatremia Status: Acute Assessment and Plan: Patient has chronic hyponatremia. Sodium normally runs in the low 130 range. Sodium 129 today. Urine sodium 21 with a fractional excretion of sodium of 0.08% to suggest dehydration related. Encourage more fluid intake. Monitor for now. (5) DVT prophylaxis: Code(s): Z29.9 - Encounter for prophylactic measures, unspecified Status: Acute Assessment and Plan: Lovenox Subjective Date/time seen: 01/28/20 17:03 Interval history: 64yo male who is WC bound due to severe peripheral neuropathy her for acute/chronic respiratory failure and PNA. He resides at [facility]. He wears 2.5L O2 chronically. Exam Narrative: Exam Narrative: AF 98.8 142/65 68 18 93% 2.5L Gen - NARD sitting up in bed Chest - diffuse expiratory rhonchi posteriorly and expir wheezes anteriorly CV - RRR S1/S2 Abd - Soft, protubernat, +BS Ext - No pedal edema Neuro - Alert and oriented. Nonfocal exam. Psych - Nml mood and affect Skin - Warm and dry Objective Data Vital Signs Vital Signs: Vital Signs - 24 hr 01/27/20 18:13 01/27/20 19:19 01/27/20 19:28 Temperature Pulse Rate 88 77 76 Respiratory Rate 20 20 Blood Pressure Pulse Oximetry 01/27/20 22:00 01/27/20 23:44 01/28/20 00:22 Temperature 98 F Pulse Rate 69 72 Respiratory Rate 20 18 26 H Blood Pressure 138/55 L Pulse Oximetry 95 96 95 01/28/20 02:00 01/28/20 02:10 01/28/20 03:55 Temperature Pulse Rate 77 74 77 Respiratory Rate 20 22 H 22 H Blood Pressure Pulse Oximetry 95 01/28/20 06:00 01/28/20 08:09 01/28/20 08:11 Temperature 97.6 F Pulse Rate 99 69 69 Respiratory Rate 22 H 18 18 Blood Pressure 134/63 Pulse Oximetry 99 97 01/28/20 08:17 01/28/20 09:18 01/28/20 14:00 Temperature 98.8 F Pulse Rate 69 80 81 Respiratory Rate 18 18 Blood Pressure 142/65 H Pulse Oximetry 93 01/28/20 14:37 01/28/20 14:45 01/28/20 16:49 Temperature Pulse Rate 76 76 68 Respiratory Rate 18 18 Blood Pressure Pulse Oximetry Intake/Output Intake/Output: Intake & Output 01/25/20 01/26/20 01/27/20 01/28/20 23:59 23:59 23:59 23:59 Intake Total 1359 1650 2080 880 Output Total 350 1500 1225
[2020-01-28] MEDS: ATORVASTATIN 10 MG TABLET PO (20:17)
[2020-01-28] MEDS: TAMSULOSIN HCL 0.4 MG CAPSULE PO (20:18)
[2020-01-28] MEDS: BENZONATATE 100 MG CAPSULE 200 MG PO (20:18)
[2020-01-28] MEDS: MELATONIN 3 MG TABLET 9 MG PO (23:02)
[2020-01-29] VITALS (18 sets, daily range): BP systolic 140–160; BP diastolic 61–83; PULSE 69–89; RESP 18–24; TEMP 36.8–37.3; O2SAT 93–98
[2020-01-29] MEDS: ALBUTEROL SULFATE NEB 2.5 MG/0.5 ML INH INHALATION ×4 (02:11→19:43)
[2020-01-29] MEDS: IPRATROPIUM BR 0.02% INH SOLN 0.5 MG/2.5 ML VIAL INHALATION ×4 (02:12→19:43)
[2020-01-29 06:34] LABS: Hematocrit 32.9 % (42.0-52.0); Hemoglobin 10.5 g/dL (14.0-18.0); Mean Corpuscular HGB Conc 31.9 g/dl (32-36); Mean Corpuscular Hemoglobin 28.5 pg (26-34); Mean Corpuscular Volume 89.2 fl (80-100); Mean Platelet Volume 8.5 fl (7.4-10.4); Platelet Count Result 231 k/mm3 (150-375); Red Blood Count 3.69 M/mm3 (4.6-6.20); Red Cell Distribution Width 12.2 % (11.5-14.5); White Blood Count 21.8 K/mm3 (4.5-10.0)
[2020-01-29 07:12] LABS: Anion Gap 9.99999 mmol/L (8-16); Blood Urea Nitrogen 19 mg/dL (9-20); Calcium 8.5 mg/dL (8.4-10.2); Carbon Dioxide > 40 mmol/L (22-30); Chloride 83 mmol/L (98-107); Estimated CRCL calculation 158 ml/min; Estimated Glomerular Filt Rate > 60; Glucose 185 mg/dL (75-110); Magnesium 1.8 mg/dL (1.6-2.3); Potassium 3.7 mmol/L (3.4-5.0); Sodium 133 mmol/L (137-145)
[2020-01-29 07:52] LABS: Folic Acid 6.2 ng/mL (2.76->20)
[2020-01-29] MEDS: BUDESONIDE RESPULE NEB 0.5 MG/2 ML AMP INHALATION ×2 (08:11→19:44)
[2020-01-29] MEDS: guaiFENesin 200 MG/10 ML UDC 400 MG PO (09:32)
[2020-01-29] MEDS: ENOXAPARIN 40 MG/0.4 ML SYRINGE SUB-Q (09:33)
[2020-01-29] MEDS: carvediloL 6.25 MG TABLET PO ×2 (09:33→17:45)
[2020-01-29] MEDS: MULTIVITAMINS THERAPEUTIC TAB (*BKC) 1 TABLET PO (09:33)
[2020-01-29] MEDS: amLODIPine BESYLATE 5 MG TABLET 10 MG PO (09:34)
[2020-01-29] MEDS: predniSONE 20 MG TABLET 40 MG PO (09:35)
[2020-01-29] MEDS: buPROPion HCL XL (24 HR) 150 MG TABCR PO (09:36)
[2020-01-29] MEDS: DOCUSATE SODIUM 100 MG CAPSULE PO ×2 (09:37→17:45)
[2020-01-29] MEDS: SILVER SULFADIAZINE 1% CR 400 GM JAR (*BKC) 1 APPLIC TOPICAL ×2 (09:39→17:45)
[2020-01-29] MEDS: TRIAMCINOLONE ACET 0.1% CREAM 15 GM TUBE 1 APPLIC TOPICAL ×2 (09:40→17:45)
[2020-01-29] MEDS: ALPRAZolam 0.5 MG TABLET PO (14:17)
[2020-01-29] MEDS: ALBUTEROL SULFATE NEB 2.5 MG/3 ML INH INHALATION (17:02)
[2020-01-29] MEDS: MAG HYDROX/AL HYDROX/SIMETH 30 ML UDC PO (17:32)
--- NOTE | 2020-01-29 19:03 | PM.IMPN ---
Progress Note: A&P Assessment and Plan (1) Acute and chronic respiratory failure: Qualifiers: Respiratory failure complication: hypoxia and hypercapnia Qualified Code(s): J96.21 - Acute and chronic respiratory failure with hypoxia; J96.22 - Acute and chronic respiratory failure with hypercapnia Code(s): J96.20 - Acute and chronic respiratory failure, unspecified whether with hypoxia or hypercapnia Status: Acute Assessment and Plan: Patient is tolerating BiPAP at night. He is requesting trilogy at the correction. Last ABG showing pCO2 59. Back to his baseline 2.5 L. Continue steroids, antibiotics and nebulizer treatments. Plan discharge tomorrow if WBC better. (2) Community acquired pneumonia: Qualifiers: Laterality: unspecified laterality Qualified Code(s): J18.9 - Pneumonia, unspecified organism Code(s): J18.9 - Pneumonia, unspecified organism Status: Acute Assessment and Plan: CXR showing RML airspace disease. WBC climbing but suspect related to steroids. BCx NGTD. No diarrhea to suggest CDiff. Continue IV azithromycin and Rocephin. Add sputum culture to exclude pseudomonas. Plan discharge if WBC trends down tomorrow. (3) COPD (chronic obstructive pulmonary disease): Qualifiers: COPD type: COPD with acute exacerbation Qualified Code(s): J44.1 - Chronic obstructive pulmonary disease with (acute) exacerbation Code(s): J44.9 - Chronic obstructive pulmonary disease, unspecified Status: Acute Assessment and Plan: COPD exacerbation. Currently on nebs and steroids. Follow up with Dr. Donaldson in the clinic. (4) Hyponatremia: Code(s): E87.1 - Hypo-osmolality and hyponatremia Status: Acute Assessment and Plan: Patient has chronic hyponatremia. Sodium normally runs in the low 130 range. Urine sodium 21 with a fractional excretion of sodium of 0.08% to suggest dehydration related. Sodium better at 133. Contine to monitor (5) DVT prophylaxis: Code(s): Z29.9 - Encounter for prophylactic measures, unspecified Status: Acute Assessment and Plan: Lovenox Subjective Date/time seen: 01/29/20 19:03 Interval history: 64yo male who is WC bound due to severe peripheral neuropathy her for acute/chronic respiratory failure and PNA. He resides at [facility]. He wears 2.5L O2 chronically. Cough productive of green sputum. Eating okay. Slept off/on/. Tolerated the CPAP last night. Exam Narrative: Exam Narrative: AF 98.2 160/83 87 20 93% 2.5L Gen - NARD sitting up in bed Chest - diffuse expiratory rhonchi, nml RR CV - RRR S1/S2 Abd - Soft, NT/ND, +BS Ext - No pedal edema Neuro - Alert and oriented. Nonfocal exam. Psych - Nml mood and affect Skin - Warm and dry Objective Data Vital Signs Vital Signs: Vital Signs - 24 hr 01/28/20 19:40 01/28/20 19:51 01/28/20 22:00 Temperature 99.1 F Pulse Rate 75 75 72 Respiratory Rate 18 18 18 Blood Pressure 149/62 H Pulse Oximetry 95 98 01/28/20 23:29 01/29/20 02:05 01/29/20 02:12 Temperature Pulse Rate 72 69 69 Respiratory Rate 25 H 22 H 22 H Blood Pressure Pulse Oximetry 96 98 01/29/20 02:13 01/29/20 06:00 01/29/20 08:00 Temperature 99.1 F Pulse Rate 69 83 87 Respiratory Rate 22 H 18 20 Blood Pressure 159/64 H Pulse Oximetry 96 95 01/29/20 08:11 01/29/20 08:30 01/29/20 09:33 Temperature Pulse Rate 78 69 87 Respiratory Rate 20 20 Blood Pressure Pulse Oximetry 95 01/29/20 13:44 01/29/20 14:13 01/29/20 14:20 Temperature 98.2 F Pulse Rate 83 85 89 Respiratory Rate 20 20 20 Blood Pressure 160/83 H Pulse Oximetry 93 01/29/20 17:03 01/29/20 17:17 Temperature Pulse Rate 77 87 Respiratory Rate 20 20 Blood Pressure Pulse Oximetry Intake/Output Intake/Output: Intake & Output 01/26/20 01/27/20 01/28/20 01/29/20 23:59
[2020-01-29] MEDS: ATORVASTATIN 10 MG TABLET PO (20:47)
[2020-01-29] MEDS: TAMSULOSIN HCL 0.4 MG CAPSULE PO (20:47)
[2020-01-29] MEDS: MELATONIN 3 MG TABLET 9 MG PO (22:10)
[2020-01-30] VITALS (18 sets, daily range): BP systolic 122–132; BP diastolic 55–58; PULSE 65–92; RESP 16–22; TEMP 36.5–36.9; O2SAT 91–98
[2020-01-30] MEDS: IPRATROPIUM BR 0.02% INH SOLN 0.5 MG/2.5 ML VIAL INHALATION ×4 (01:33→19:55)
[2020-01-30] MEDS: ALBUTEROL SULFATE NEB 2.5 MG/0.5 ML INH INHALATION ×4 (01:33→19:55)
[2020-01-30 06:22] LABS: Basophils Percent Auto 0.1 % (0.2-1.2); Hematocrit 33.5 % (42.0-52.0); Hemoglobin 10.5 g/dL (14.0-18.0); Immature Granulocyte Absolute 0.16 K/mm3 (0.00-0.031); Immature Granulocyte Percent A 0.7 % (0-0.5); Lymphocytes Absolute Auto 1.11 K/mm3 (0.9-3.2); Lymphocytes Percent Auto 4.9 % (18.3-44.2); Mean Corpuscular HGB Conc 31.3 g/dl (32-36); Mean Corpuscular Hemoglobin 28.5 pg (26-34); Mean Platelet Volume 8.6 fl (7.4-10.4); Monocytes Absolute Auto 1.3 K/mm3 (0.1-0.6); Monocytes Percent Auto 5.8 % (2.6-8.5); Neutrophils Absolute Auto 20.1 K/mm3 (1.3-6.7); Neutrophils Percent Auto 88.5 % (45.5-73.1); Platelet Count Result 263 k/mm3 (150-375); Red Blood Count 3.68 M/mm3 (4.6-6.20); Red Cell Distribution Width 12.3 % (11.5-14.5); White Blood Count 22.8 K/mm3 (4.5-10.0)
[2020-01-30] MEDS: MAG HYDROX/AL HYDROX/SIMETH 30 ML UDC PO ×2 (07:57→15:07)
[2020-01-30] MEDS: ALPRAZolam 0.5 MG TABLET PO ×2 (07:57→15:07)
[2020-01-30] MEDS: predniSONE 20 MG TABLET 40 MG PO (08:01)
[2020-01-30] MEDS: amLODIPine BESYLATE 5 MG TABLET 10 MG PO (08:05)
[2020-01-30] MEDS: carvediloL 6.25 MG TABLET PO ×2 (08:05→17:46)
[2020-01-30] MEDS: buPROPion HCL XL (24 HR) 150 MG TABCR PO (08:05)
[2020-01-30] MEDS: DOCUSATE SODIUM 100 MG CAPSULE PO ×2 (08:06→17:46)
[2020-01-30] MEDS: ENOXAPARIN 40 MG/0.4 ML SYRINGE SUB-Q (08:08)
[2020-01-30] MEDS: MULTIVITAMINS THERAPEUTIC TAB (*BKC) 1 TABLET PO (08:08)
[2020-01-30] MEDS: BUDESONIDE RESPULE NEB 0.5 MG/2 ML AMP INHALATION ×2 (08:16→19:55)
[2020-01-30] MEDS: TRIAMCINOLONE ACET 0.1% CREAM 15 GM TUBE 1 APPLIC TOPICAL (09:30)
[2020-01-30] MEDS: SILVER SULFADIAZINE 1% CR 400 GM JAR (*BKC) 1 APPLIC TOPICAL (09:30)
[2020-01-30] MEDS: ALBUTEROL SULFATE NEB 2.5 MG/3 ML INH INHALATION (11:06)
--- NOTE | 2020-01-30 17:07 | PM.IMPN ---
Progress Note: A&P Assessment and Plan (1) Acute and chronic respiratory failure: Qualifiers: Respiratory failure complication: hypoxia and hypercapnia Qualified Code(s): J96.21 - Acute and chronic respiratory failure with hypoxia; J96.22 - Acute and chronic respiratory failure with hypercapnia Code(s): J96.20 - Acute and chronic respiratory failure, unspecified whether with hypoxia or hypercapnia Status: Acute Assessment and Plan: patient is tolerating BiPAP at night. He is requesting trilogy at the snf. Last ABG showing pCO2 59. Back to his baseline 2.5 L. Continue steroids and continue taper, antibiotics and nebulizer treatments. (2) Community acquired pneumonia: Qualifiers: Laterality: unspecified laterality Qualified Code(s): J18.9 - Pneumonia, unspecified organism Code(s): J18.9 - Pneumonia, unspecified organism Status: Acute Assessment and Plan: CXR showing RML airspace disease. WBC climbing but suspect related to steroids. Continue IV zithromax and Rocephin. BCx NGTD. recheck wbc and cxr am (3) COPD (chronic obstructive pulmonary disease): Qualifiers: COPD type: COPD with acute exacerbation Qualified Code(s): J44.1 - Chronic obstructive pulmonary disease with (acute) exacerbation Code(s): J44.9 - Chronic obstructive pulmonary disease, unspecified Status: Acute Assessment and Plan: COPD exacerbation. Currently on nebs and Solu-Medrol. . Back at baseline O2 requirement. changed to oral steroids 01/28 and taper more. Follow up with Dr. Donaldson in the clinic. (4) Hyponatremia: Code(s): E87.1 - Hypo-osmolality and hyponatremia Status: Acute Assessment and Plan: Patient has chronic hyponatremia. Sodium normally runs in the low 130 range. Sodium 133 today. Urine sodium 21 with a fractional excretion of sodium of 0.08% to suggest dehydration related. Encourage more fluid intake. Monitor for now. (5) DVT prophylaxis: Code(s): Z29.9 - Encounter for prophylactic measures, unspecified Status: Acute Assessment and Plan: Lovenox Subjective Date/time seen: 01/30/20 17:07 Interval history: DAte of visit 01/29 64yo male who is WC bound due to severe peripheral neuropathy here for acute/chronic respiratory failure and PNA. He resides at [facility]. He wears 2.5L O2 chronically. Cough productive of green sputum. still Eating okay. Slept off/on/. Tolerated the CPAP last night. Exam Narrative: Exam Narrative: AF 98.2 124/56 86 20 94% 2.5L Gen - NARD sitting up in bed Chest - diffuse expiratory rhonchi, nml RR CV - RRR S1/S2 Abd - Soft, NT/ND, +BS Ext - No pedal edema Neuro - Alert and oriented. Nonfocal exam. Psych - Nml mood and affect Skin - Warm and dry Objective Data Vital Signs Vital Signs: Vital Signs - 24 hr 01/29/20 17:17 01/29/20 19:44 01/29/20 19:47 Temperature Pulse Rate 87 84 Respiratory Rate 20 20 Blood Pressure Pulse Oximetry 95 01/29/20 19:53 01/29/20 21:45 01/29/20 23:20 Temperature 36.9 C Pulse Rate 86 87 78 Respiratory Rate 20 18 24 H Blood Pressure 140/61 Pulse Oximetry 94 96 01/30/20 01:33 01/30/20 01:35 01/30/20 01:38 Temperature Pulse Rate 69 69 74 Respiratory Rate 22 H 22 H 22 H Blood Pressure Pulse Oximetry 94 01/30/20 05:42 01/30/20 08:05 01/30/20 08:17 Temperature 36.8 C Pulse Rate 90 92 88 Respiratory Rate 20 20 Blood Pressure 132/58 L Pulse Oximetry 92 01/30/20 08:18 01/30/20 08:39 01/30/20 11:06 Temperature Pulse Rate 84 80 Respiratory Rate 20 20 Blood Pressure Pulse Oximetry 93 01/30/20 11:15 01/30/20 14:00 01/30/20 14:33 Temperature 36.9 C Pulse Rate 80 86 86 Respiratory Rate 20 16 20 Blood Pressure 124/55 L Pulse Oximetry 93 01/30/20 14:41 Temperature Pulse Rate 88 Respiratory Rate
[2020-01-30] MEDS: ATORVASTATIN 10 MG TABLET PO (22:17)
[2020-01-30] MEDS: TAMSULOSIN HCL 0.4 MG CAPSULE PO (22:17)
[2020-01-30] MEDS: MELATONIN 3 MG TABLET 9 MG PO (22:17)
[2020-01-31] VITALS (13 sets, daily range): BP systolic 128–147; BP diastolic 54–59; PULSE 64–88; RESP 16–28; TEMP 36.2–36.6; O2SAT 90–94
[2020-01-31] MEDS: ALBUTEROL SULFATE NEB 2.5 MG/0.5 ML INH INHALATION ×4 (02:11→20:12)
[2020-01-31] MEDS: IPRATROPIUM BR 0.02% INH SOLN 0.5 MG/2.5 ML VIAL INHALATION ×4 (02:11→20:12)
[2020-01-31] MEDS: MAG HYDROX/AL HYDROX/SIMETH 30 ML UDC PO (05:38)
[2020-01-31 06:31] LABS: Basophils Percent Auto 0.1 % (0.2-1.2); Eosinophils Percent Auto 0.1 % (0-4.4); Hematocrit 34.1 % (42.0-52.0); Hemoglobin 10.7 g/dL (14.0-18.0); Immature Granulocyte Absolute 0.12 K/mm3 (0.00-0.031); Immature Granulocyte Percent A 0.5 % (0-0.5); Lymphocytes Absolute Auto 0.87 K/mm3 (0.9-3.2); Lymphocytes Percent Auto 3.8 % (18.3-44.2); Mean Corpuscular HGB Conc 31.4 g/dl (32-36); Mean Corpuscular Hemoglobin 28.9 pg (26-34); Mean Corpuscular Volume 92.2 fl (80-100); Mean Platelet Volume 8.4 fl (7.4-10.4); Monocytes Absolute Auto 1.4 K/mm3 (0.1-0.6); Monocytes Percent Auto 6.1 % (2.6-8.5); Neutrophils Absolute Auto 20.4 K/mm3 (1.3-6.7); Neutrophils Percent Auto 89.4 % (45.5-73.1); Platelet Count Result 291 k/mm3 (150-375); Red Cell Distribution Width 12.5 % (11.5-14.5); White Blood Count 22.9 K/mm3 (4.5-10.0)
[2020-01-31] MEDS: predniSONE 10 MG TABLET 30 MG PO (08:52)
[2020-01-31] MEDS: amLODIPine BESYLATE 5 MG TABLET 10 MG PO (08:53)
[2020-01-31] MEDS: ENOXAPARIN 40 MG/0.4 ML SYRINGE SUB-Q (08:53)
[2020-01-31] MEDS: buPROPion HCL XL (24 HR) 150 MG TABCR PO (08:53)
[2020-01-31] MEDS: DOCUSATE SODIUM 100 MG CAPSULE PO ×2 (08:53→16:23)
[2020-01-31] MEDS: MULTIVITAMINS THERAPEUTIC TAB (*BKC) 1 TABLET PO (08:54)
[2020-01-31] MEDS: ACETAMINOPHEN 325 MG TABLET 650 MG PO (08:54)
[2020-01-31] MEDS: BUDESONIDE RESPULE NEB 0.5 MG/2 ML AMP INHALATION ×2 (09:36→20:12)
[2020-01-31] MEDS: carvediloL 6.25 MG TABLET PO ×2 (10:16→16:23)
--- NOTE | 2020-01-31 12:38 | PCNWS ---
Weekly nutritional screen. Patient is tolerating Heart Healthy with 100% intake of meals. Patient states roasted turkey is incredible, but meatloaf is kind of dry. Weight has remained stable. Patient states he has constipation, but that is normal for him and he takes medicine for it at home. Encouraged patient to continue drinking water to aid constipation. No nutritional needs at this time.
--- NOTE | 2020-01-31 12:49 | PCNSR ---
On 01/31/20, the student, Berny Nicole, provided care and completed [facility] on this patient. I have reviewed the student's documentation and agree with the findings.
[2020-01-31] MEDS: ALPRAZolam 0.5 MG TABLET PO ×2 (15:31→23:18)
--- NOTE | 2020-01-31 16:11 | PM.IMPN ---
Progress Note: A&P Assessment and Plan (1) Acute and chronic respiratory failure: Qualifiers: Respiratory failure complication: hypoxia and hypercapnia Qualified Code(s): J96.21 - Acute and chronic respiratory failure with hypoxia; J96.22 - Acute and chronic respiratory failure with hypercapnia Code(s): J96.20 - Acute and chronic respiratory failure, unspecified whether with hypoxia or hypercapnia Status: Acute Assessment and Plan: patient is tolerating BiPAP at night. He is requesting trilogy at the intermediate. Last ABG showing pCO2 59. Back to his baseline 2.5 L. Continue steroids and continue taper, antibiotics and nebulizer treatments. (2) Community acquired pneumonia: Qualifiers: Laterality: unspecified laterality Qualified Code(s): J18.9 - Pneumonia, unspecified organism Code(s): J18.9 - Pneumonia, unspecified organism Status: Acute Assessment and Plan: CXR showing RML airspace disease and worse on todays xray. . WBC climbing and may be steroids vs worsening infection. Continue IV zithromax and change to zosyn. BCx NGTD. recheck wbc am (3) COPD (chronic obstructive pulmonary disease): Qualifiers: COPD type: COPD with acute exacerbation Qualified Code(s): J44.1 - Chronic obstructive pulmonary disease with (acute) exacerbation Code(s): J44.9 - Chronic obstructive pulmonary disease, unspecified Status: Acute Assessment and Plan: COPD exacerbation. Currently on nebs and steroidl. . Back at baseline O2 requirement. changed to oral steroids 01/28 and taper more. Follow up with Dr. Donaldson in the clinic. (4) Hyponatremia: Code(s): E87.1 - Hypo-osmolality and hyponatremia Status: Acute Assessment and Plan: Patient has chronic hyponatremia. Sodium normally runs in the low 130 range. Sodium 133 01/29. Urine sodium 21 with a fractional excretion of sodium of 0.08% to suggest dehydration related. Encourage more fluid intake. Monitor for now. (5) DVT prophylaxis: Code(s): Z29.9 - Encounter for prophylactic measures, unspecified Status: Acute Assessment and Plan: Lovenox Subjective Date/time seen: 01/31/20 16:11 Interval history: DAte of visit 01/30 64yo male who is WC bound due to severe peripheral neuropathy here for acute/chronic respiratory failure and PNA. He resides at [facility] He wears 2.5L O2 chronically. Still productive coughl Eating okay. Slept off/on/. Tolerated the CPAP last night. Feels congested this am Exam Narrative: Exam Narrative: AF 98.2 146/60 84 20 92% 2.5L Gen - NARD sitting up in bed Chest - diffuse expiratory rhonchi, with some R post basal crackles CV - RRR S1/S2 Abd - Soft, NT/ND, +BS Ext - No pedal edema Neuro - Alert and oriented. Nonfocal exam. Psych - Nml mood and affect Skin - Warm and dry Objective Data Vital Signs Vital Signs: Vital Signs - 24 hr 01/30/20 17:46 01/30/20 19:55 01/30/20 20:09 Temperature Pulse Rate 84 73 72 Respiratory Rate 20 20 Blood Pressure Pulse Oximetry 97 01/30/20 22:00 01/30/20 22:22 01/31/20 02:11 Temperature 36.5 C Pulse Rate 65 68 74 Respiratory Rate 20 22 H 20 Blood Pressure 122/56 L Pulse Oximetry 98 91 01/31/20 06:00 01/31/20 09:36 01/31/20 09:46 Temperature 36.6 C Pulse Rate 88 72 80 Respiratory Rate 20 20 20 Blood Pressure 147/59 H Pulse Oximetry 94 91 01/31/20 10:16 01/31/20 14:28 01/31/20 14:42 Temperature Pulse Rate 84 88 84 Respiratory Rate 20 Blood Pressure Pulse Oximetry Intake/Output Intake/Output: Intake & Output 01/28/20 01/29/20 01/30/20 01/31/20 23:59 23:59 23:59 23:59 Intake Total 1870 3900 2120 520 Output Total 1225 1775 1175 800 Balance 645 2126 947 -837 Meds/Results Medications: Active Medications Generic Name Dose Route Start Last Admin Trade Name Gino
[2020-01-31] MEDS: TAMSULOSIN HCL 0.4 MG CAPSULE PO (20:07)
[2020-01-31] MEDS: ATORVASTATIN 10 MG TABLET PO (20:07)
[2020-01-31] MEDS: MELATONIN 3 MG TABLET 9 MG PO (22:04)
[2020-02-01] VITALS (14 sets, daily range): BP systolic 122–130; BP diastolic 54–55; PULSE 64–86; RESP 18–28; TEMP 36.4–36.8; O2SAT 90–95
[2020-02-01] MEDS: ALBUTEROL SULFATE NEB 2.5 MG/0.5 ML INH INHALATION ×4 (02:38→20:29)
[2020-02-01] MEDS: IPRATROPIUM BR 0.02% INH SOLN 0.5 MG/2.5 ML VIAL INHALATION ×4 (02:38→20:29)
[2020-02-01] MEDS: BENZONATATE 100 MG CAPSULE 200 MG PO (06:28)
[2020-02-01 06:30] LABS: Basophils Percent Auto 0.1 % (0.2-1.2); Eosinophils Percent Auto 0.1 % (0-4.4); Hematocrit 31.1 % (42.0-52.0); Hemoglobin 9.8 g/dL (14.0-18.0); Immature Granulocyte Absolute 0.17 K/mm3 (0.00-0.031); Immature Granulocyte Percent A 0.8 % (0-0.5); Lymphocytes Absolute Auto 0.99 K/mm3 (0.9-3.2); Lymphocytes Percent Auto 4.4 % (18.3-44.2); Mean Corpuscular HGB Conc 31.5 g/dl (32-36); Mean Corpuscular Hemoglobin 28.6 pg (26-34); Mean Corpuscular Volume 90.7 fl (80-100); Mean Platelet Volume 8.2 fl (7.4-10.4); Monocytes Absolute Auto 1.4 K/mm3 (0.1-0.6); Monocytes Percent Auto 6.1 % (2.6-8.5); Neutrophils Absolute Auto 19.8 K/mm3 (1.3-6.7); Neutrophils Percent Auto 88.5 % (45.5-73.1); Platelet Count Result 315 k/mm3 (150-375); Red Blood Count 3.43 M/mm3 (4.6-6.20); Red Cell Distribution Width 12.2 % (11.5-14.5); White Blood Count 22.4 K/mm3 (4.5-10.0)
[2020-02-01] MEDS: MAG HYDROX/AL HYDROX/SIMETH 30 ML UDC PO (06:32)
[2020-02-01] MEDS: BUDESONIDE RESPULE NEB 0.5 MG/2 ML AMP INHALATION ×2 (06:36→20:29)
[2020-02-01 06:52] LABS: Anion Gap 6.99999 mmol/L (8-16); Blood Urea Nitrogen 15 mg/dL (9-20); Calcium 7.9 mg/dL (8.4-10.2); Carbon Dioxide > 40 mmol/L (22-30); Chloride 81 mmol/L (98-107); Estimated CRCL calculation 158 ml/min; Estimated Glomerular Filt Rate > 60; Glucose 111 mg/dL (75-110); Potassium 4.2 mmol/L (3.4-5.0); Sodium 128 mmol/L (137-145)
[2020-02-01] MEDS: amLODIPine BESYLATE 5 MG TABLET 10 MG PO (08:34)
[2020-02-01] MEDS: buPROPion HCL XL (24 HR) 150 MG TABCR PO (08:34)
[2020-02-01] MEDS: predniSONE 10 MG TABLET 30 MG PO (08:34)
[2020-02-01] MEDS: carvediloL 6.25 MG TABLET PO ×2 (08:34→16:21)
[2020-02-01] MEDS: MULTIVITAMINS THERAPEUTIC TAB (*BKC) 1 TABLET PO (08:35)
[2020-02-01] MEDS: ENOXAPARIN 40 MG/0.4 ML SYRINGE SUB-Q (08:35)
[2020-02-01] MEDS: DOCUSATE SODIUM 100 MG CAPSULE PO ×2 (08:35→16:22)
[2020-02-01] MEDS: ALPRAZolam 0.5 MG TABLET PO ×2 (09:46→22:28)
--- NOTE | 2020-02-01 16:00 | PM.IMPN ---
Progress Note: A&P Assessment and Plan (1) Acute and chronic respiratory failure: Qualifiers: Respiratory failure complication: hypoxia and hypercapnia Qualified Code(s): J96.21 - Acute and chronic respiratory failure with hypoxia; J96.22 - Acute and chronic respiratory failure with hypercapnia Code(s): J96.20 - Acute and chronic respiratory failure, unspecified whether with hypoxia or hypercapnia Status: Acute Assessment and Plan: patient is tolerating BiPAP at night. He is requesting trilogy at the alf. Last ABG showing pCO2 59. Back to his baseline 2.5 L. Continue steroids and continue taper, antibiotics and nebulizer treatments. (2) Community acquired pneumonia: Qualifiers: Laterality: unspecified laterality Qualified Code(s): J18.9 - Pneumonia, unspecified organism Code(s): J18.9 - Pneumonia, unspecified organism Status: Acute Assessment and Plan: CXR showing RML airspace disease and worse on 01/30 xray. . WBC climbing and may be steroids vs worsening infection. Continue IV zithromax and changed to zosyn 01/30 . BCx NGTD. wbc unchanged at 22K (3) COPD (chronic obstructive pulmonary disease): Qualifiers: COPD type: COPD with acute exacerbation Qualified Code(s): J44.1 - Chronic obstructive pulmonary disease with (acute) exacerbation Code(s): J44.9 - Chronic obstructive pulmonary disease, unspecified Status: Acute Assessment and Plan: COPD exacerbation. Currently on nebs and steroids. . Back at baseline O2 requirement. changed to oral steroids 01/28 and taper more. Follow up with Dr. Donaldson in the clinic. (4) Hyponatremia: Code(s): E87.1 - Hypo-osmolality and hyponatremia Status: Acute Assessment and Plan: Patient has chronic hyponatremia. Sodium normally runs in the low 130 range. Sodium 128 today Urine sodium 21 with a fractional excretion of sodium of 0.08% to suggest dehydration related. Encourage more fluid intake. Monitor for now. (5) DVT prophylaxis: Code(s): Z29.9 - Encounter for prophylactic measures, unspecified Status: Acute Assessment and Plan: Lovenox Subjective Date/time seen: 02/01/20 16:00 Interval history: DAte of visit 01/31 64yo male who is WC bound due to severe peripheral neuropathy here for acute/chronic respiratory failure and PNA. He resides at [facility]. He wears 2.5L O2 chronically. Still productive coughl Eating okay. Slept off/on/. Tolerated the CPAP last night. Wanting to go home Exam Narrative: Exam Narrative: AF 98.2 122/56 80 18 92% 2.5L Gen - NARD sitting up in bed Chest - faint rhonchi with some R post basal crackles CV - RRR S1/S2 Abd - Soft, NT/ND, +BS Ext - No pedal edema Neuro - Alert and oriented. Nonfocal exam. Psych - Nml mood and affect Skin - Warm and dry Objective Data Vital Signs Vital Signs: Vital Signs - 24 hr 01/31/20 16:23 01/31/20 20:12 01/31/20 20:26 Temperature Pulse Rate 64 72 75 Respiratory Rate 18 18 Blood Pressure Pulse Oximetry 90 01/31/20 22:00 01/31/20 23:43 02/01/20 02:38 Temperature 36.6 C Pulse Rate 74 74 83 Respiratory Rate 16 28 H 28 H Blood Pressure 128/54 L Pulse Oximetry 93 93 93 02/01/20 02:47 02/01/20 06:00 02/01/20 06:36 Temperature 36.8 C Pulse Rate 79 82 86 Respiratory Rate 26 H 20 20 Blood Pressure 127/55 L Pulse Oximetry 95 92 02/01/20 06:49 02/01/20 08:34 02/01/20 13:00 Temperature Pulse Rate 84 64 82 Respiratory Rate 20 20 Blood Pressure Pulse Oximetry 02/01/20 14:00 Temperature 36.6 C Pulse Rate 80 Respiratory Rate 18 Blood Pressure 122/55 L Pulse Oximetry 92 Intake/Output Intake/Output: Intake & Output 01/29/20 01/30/20 01/31/20 02/01/20 23:59 23:59 23:59 23:59 Intake Total 3900 2120 2610 980 Output Total 7835 1175 2025 400 Balance 4748 947 092
[2020-02-01] MEDS: TAMSULOSIN HCL 0.4 MG CAPSULE PO (20:18)
[2020-02-01] MEDS: ATORVASTATIN 10 MG TABLET PO (20:18)
[2020-02-01] MEDS: MELATONIN 3 MG TABLET 9 MG PO (21:55)
[2020-02-02] VITALS (13 sets, daily range): BP systolic 121–143; BP diastolic 55–62; PULSE 71–82; RESP 16–26; TEMP 36.3–36.7; O2SAT 90–93
[2020-02-02] MEDS: BENZONATATE 100 MG CAPSULE 200 MG PO ×2 (01:26→08:58)
[2020-02-02] MEDS: IPRATROPIUM BR 0.02% INH SOLN 0.5 MG/2.5 ML VIAL INHALATION ×4 (02:24→20:08)
[2020-02-02] MEDS: ALBUTEROL SULFATE NEB 2.5 MG/0.5 ML INH INHALATION ×4 (02:24→20:08)
[2020-02-02 06:15] LABS: Basophils Percent Auto 0.1 % (0.2-1.2); Eosinophils Percent Auto 0.1 % (0-4.4); Hematocrit 29.8 % (42.0-52.0); Hemoglobin 9.3 g/dL (14.0-18.0); Immature Granulocyte Absolute 0.08 K/mm3 (0.00-0.031); Immature Granulocyte Percent A 0.5 % (0-0.5); Lymphocytes Percent Auto 6.3 % (18.3-44.2); Mean Corpuscular HGB Conc 31.2 g/dl (32-36); Mean Corpuscular Hemoglobin 28.7 pg (26-34); Mean Platelet Volume 7.9 fl (7.4-10.4); Monocytes Absolute Auto 1.3 K/mm3 (0.1-0.6); Monocytes Percent Auto 8.4 % (2.6-8.5); Neutrophils Absolute Auto 13.5 K/mm3 (1.3-6.7); Neutrophils Percent Auto 84.6 % (45.5-73.1); Platelet Count Result 352 k/mm3 (150-375); Red Blood Count 3.24 M/mm3 (4.6-6.20); Red Cell Distribution Width 12.1 % (11.5-14.5)
[2020-02-02 07:24] LABS: Anion Gap 7.99999 mmol/L (8-16); Blood Urea Nitrogen 14 mg/dL (9-20); Calcium 8.1 mg/dL (8.4-10.2); Carbon Dioxide > 40 mmol/L (22-30); Chloride 82 mmol/L (98-107); Estimated CRCL calculation 158 ml/min; Estimated Glomerular Filt Rate > 60; Glucose 122 mg/dL (75-110); Sodium 130 mmol/L (137-145)
[2020-02-02] MEDS: BUDESONIDE RESPULE NEB 0.5 MG/2 ML AMP INHALATION ×2 (08:16→20:07)
[2020-02-02] MEDS: MULTIVITAMINS THERAPEUTIC TAB (*BKC) 1 TABLET PO (08:57)
[2020-02-02] MEDS: amLODIPine BESYLATE 5 MG TABLET 10 MG PO (08:57)
[2020-02-02] MEDS: predniSONE 20 MG TABLET PO (08:57)
[2020-02-02] MEDS: buPROPion HCL XL (24 HR) 150 MG TABCR PO (08:57)
[2020-02-02] MEDS: carvediloL 6.25 MG TABLET PO ×2 (08:57→16:25)
[2020-02-02] MEDS: DOCUSATE SODIUM 100 MG CAPSULE PO ×2 (08:57→16:25)
[2020-02-02] MEDS: TRIAMCINOLONE ACET 0.1% CREAM 15 GM TUBE 1 APPLIC TOPICAL (08:58)
[2020-02-02] MEDS: SILVER SULFADIAZINE 1% CR 400 GM JAR (*BKC) 1 APPLIC TOPICAL ×2 (08:58→16:24)
[2020-02-02] MEDS: ENOXAPARIN 40 MG/0.4 ML SYRINGE SUB-Q (08:59)
[2020-02-02] MEDS: MAGNESIUM HYDROXIDE SUSP 30 ML UDC PO (11:08)
[2020-02-02] MEDS: ALPRAZolam 0.5 MG TABLET PO ×2 (11:08→21:53)
--- NOTE | 2020-02-02 16:52 | PM.IMPN ---
Progress Note: A&P Assessment and Plan (1) Acute and chronic respiratory failure: Qualifiers: Respiratory failure complication: hypoxia and hypercapnia Qualified Code(s): J96.21 - Acute and chronic respiratory failure with hypoxia; J96.22 - Acute and chronic respiratory failure with hypercapnia Code(s): J96.20 - Acute and chronic respiratory failure, unspecified whether with hypoxia or hypercapnia Status: Acute Assessment and Plan: patient is tolerating BiPAP at night. He is requesting trilogy at the [facility]. Last ABG showing pCO2 59. Back to his baseline 2.5 L. Continue steroids and continue taper, antibiotics and nebulizer treatments. (2) Community acquired pneumonia: Qualifiers: Laterality: unspecified laterality Qualified Code(s): J18.9 - Pneumonia, unspecified organism Code(s): J18.9 - Pneumonia, unspecified organism Status: Acute Assessment and Plan: CXR showing RML airspace disease and worse on 01/30 xray. . WBC was climbing and may be steroids vs worsening infection. Continue IV zithromax and changed to zosyn 01/30 . BCx NGTD. wbc today decreased to 16K (3) COPD (chronic obstructive pulmonary disease): Qualifiers: COPD type: COPD with acute exacerbation Qualified Code(s): J44.1 - Chronic obstructive pulmonary disease with (acute) exacerbation Code(s): J44.9 - Chronic obstructive pulmonary disease, unspecified Status: Acute Assessment and Plan: COPD exacerbation. Currently on nebs and steroids. . Back at baseline O2 requirement. changed to oral steroids 01/28 and taper more. Follow up with Dr. Donaldson in the clinic. (4) Hyponatremia: Code(s): E87.1 - Hypo-osmolality and hyponatremia Status: Acute Assessment and Plan: Patient has chronic hyponatremia. Sodium normally runs in the low 130 range. Sodium 130 today. Urine sodium 21 with a fractional excretion of sodium of 0.08% to suggest dehydration related. Encourage more fluid intake. Monitor for now. (5) DVT prophylaxis: Code(s): Z29.9 - Encounter for prophylactic measures, unspecified Status: Acute Assessment and Plan: Lovenox Subjective Date/time seen: 02/02/20 16:52 Interval history: DAte of visit 02/01 64yo male who is WC bound due to severe peripheral neuropathy here for acute/chronic respiratory failure and PNA. He resides at [facility]. He wears 2.5L O2 chronically. Still productive cough but less Eating okay. Slept off/on/. Tolerated the CPAP last night. Wanting to go home Exam Narrative: Exam Narrative: AF 98.2 132/62 80 18 93% 2.5L Gen - NARD sitting up in bed Chest - faint rhonchi with some R post basal crackles but decreased CV - RRR S1/S2 Abd - Soft, NT/ND, +BS Ext - No pedal edema Neuro - Alert and oriented. Nonfocal exam. Psych - Nml mood and affect Skin - Warm and dry Objective Data Vital Signs Vital Signs: Vital Signs - 24 hr 02/01/20 20:30 02/01/20 20:59 02/01/20 21:00 Temperature Pulse Rate 75 78 75 Respiratory Rate 20 20 20 Blood Pressure Pulse Oximetry 90 02/01/20 21:24 02/01/20 22:56 02/02/20 02:24 Temperature 36.4 C Pulse Rate 78 74 76 Respiratory Rate 20 22 H 20 Blood Pressure 130/54 L Pulse Oximetry 92 90 02/02/20 02:31 02/02/20 06:00 02/02/20 08:15 Temperature 36.6 C Pulse Rate 77 76 81 Respiratory Rate 20 20 20 Blood Pressure 121/55 L Pulse Oximetry 90 02/02/20 08:19 02/02/20 08:25 02/02/20 13:43 Temperature Pulse Rate 81 80 82 Respiratory Rate 20 20 20 Blood Pressure Pulse Oximetry 92 02/02/20 13:50 02/02/20 14:00 Temperature 36.3 C L Pulse Rate 82 81 Respiratory Rate 20 16 Blood Pressure 132/62 Pulse Oximetry 93 Intake/Output Intake/Output: Intake & Output 01/30/20 01/31/20 02/01/20 02/02/20 23:59 23:59 23:59 23:59 Intake Total 2943 2619 212
[2020-02-02 19:29] LABS: SARS-CoV-2 RNA PCR Negative
[2020-02-02] MEDS: MELATONIN 3 MG TABLET 9 MG PO (21:53)
[2020-02-02] MEDS: ATORVASTATIN 10 MG TABLET PO (21:53)
[2020-02-02] MEDS: TAMSULOSIN HCL 0.4 MG CAPSULE PO (21:53)
[2020-02-03] VITALS (9 sets, daily range): BP systolic 121–135; BP diastolic 54–58; PULSE 70–84; RESP 18–22; TEMP 36.4–36.8; O2SAT 91–94
[2020-02-03] MEDS: IPRATROPIUM BR 0.02% INH SOLN 0.5 MG/2.5 ML VIAL INHALATION ×3 (02:35→12:56)
[2020-02-03] MEDS: ALBUTEROL SULFATE NEB 2.5 MG/0.5 ML INH INHALATION ×3 (02:35→12:55)
[2020-02-03 06:51] LABS: Basophils Percent Auto 0.1 % (0.2-1.2); Eosinophils Percent Auto 0.1 % (0-4.4); Hematocrit 31.1 % (42.0-52.0); Hemoglobin 9.6 g/dL (14.0-18.0); Immature Granulocyte Absolute 0.06 K/mm3 (0.00-0.031); Immature Granulocyte Percent A 0.4 % (0-0.5); Lymphocytes Absolute Auto 0.95 K/mm3 (0.9-3.2); Mean Corpuscular HGB Conc 30.9 g/dl (32-36); Mean Corpuscular Hemoglobin 28.4 pg (26-34); Monocytes Absolute Auto 1.1 K/mm3 (0.1-0.6); Monocytes Percent Auto 8.2 % (2.6-8.5); Neutrophils Absolute Auto 11.5 K/mm3 (1.3-6.7); Neutrophils Percent Auto 84.2 % (45.5-73.1); Platelet Count Result 400 k/mm3 (150-375); Red Blood Count 3.38 M/mm3 (4.6-6.20); Red Cell Distribution Width 12.2 % (11.5-14.5); White Blood Count 13.6 K/mm3 (4.5-10.0)
[2020-02-03] MEDS: BUDESONIDE RESPULE NEB 0.5 MG/2 ML AMP INHALATION (07:57)
[2020-02-03] MEDS: guaiFENesin 200 MG/10 ML UDC 400 MG PO (09:44)
[2020-02-03] MEDS: carvediloL 6.25 MG TABLET PO ×2 (10:39→17:39)
[2020-02-03] MEDS: predniSONE 20 MG TABLET 10 MG PO (10:40)
[2020-02-03] MEDS: MULTIVITAMINS THERAPEUTIC TAB (*BKC) 1 TABLET PO (10:41)
[2020-02-03] MEDS: ALPRAZolam 0.5 MG TABLET PO (10:41)
[2020-02-03] MEDS: DOCUSATE SODIUM 100 MG CAPSULE PO ×2 (10:41→17:39)
[2020-02-03] MEDS: ENOXAPARIN 40 MG/0.4 ML SYRINGE SUB-Q (10:43)
[2020-02-03] MEDS: buPROPion HCL XL (24 HR) 150 MG TABCR PO (10:44)
[2020-02-03] MEDS: amLODIPine BESYLATE 5 MG TABLET 10 MG PO (10:44)
[2020-02-03] MEDS: SILVER SULFADIAZINE 1% CR 400 GM JAR (*BKC) 1 APPLIC TOPICAL ×2 (10:45→17:39)
[2020-02-03] MEDS: TRIAMCINOLONE ACET 0.1% CREAM 15 GM TUBE 1 APPLIC TOPICAL ×2 (10:45→17:39)
--- NOTE | 2020-02-07 14:31 | PM.DS ---
DS: Admitting Diagnosis Admitting Diagnosis Admitting Diagnosis: acute respiratory with hypercapnea DS: Discharge Diagnosis Discharge Diagnosis (1) Acute and chronic respiratory failure: Qualifiers: Respiratory failure complication: hypoxia and hypercapnia Qualified Code(s): J96.21 - Acute and chronic respiratory failure with hypoxia; J96.22 - Acute and chronic respiratory failure with hypercapnia Code(s): J96.20 - Acute and chronic respiratory failure, unspecified whether with hypoxia or hypercapnia Status: Acute Assessment and Plan: patient is tolerating BiPAP at night. Last ABG showing pCO2 59. Back to his baseline 2.5 L. steroids tapered off by d/c, antibiotics and nebulizer treatments.continued with improvements (2) Community acquired pneumonia: Qualifiers: Laterality: unspecified laterality Qualified Code(s): J18.9 - Pneumonia, unspecified organism Code(s): J18.9 - Pneumonia, unspecified organism Status: Acute Assessment and Plan: CXR showing RML airspace disease and worse on 01/30 xray. .. Continue IV zithromax and changed to zosyn 01/30 . with wbc decreased to 13k at d/c with improved well being and cough. will have 7 more days of cipro 500 bid and doxycycline 100 bid after d/c BC and sputum NG (3) COPD (chronic obstructive pulmonary disease): Qualifiers: COPD type: COPD with acute exacerbation Qualified Code(s): J44.1 - Chronic obstructive pulmonary disease with (acute) exacerbation Code(s): J44.9 - Chronic obstructive pulmonary disease, unspecified Status: Acute Assessment and Plan: COPD exacerbation. rx with nebs, steroids and antibiotics with immprovement. . Back at baseline O2 requirement. changed to oral steroids 01/28 and tapered off. Follow up with Dr. Donaldson in the clinic. (4) Hyponatremia: Code(s): E87.1 - Hypo-osmolality and hyponatremia Status: Acute Assessment and Plan: Patient has chronic hyponatremia. Sodium normally runs in the low 130 range. Sodium 130 at d/c. Urine sodium 21 with a fractional excretion of sodium of 0.08% to suggest dehydration related. Encourage more fluid intake. Monitor for now. DS: Summary Hospital Course Hospital Course: 64-year-old white male with hypertension COPD and severe peripheral neuropathy admitted with pneumonia. When chest x-ray worsened on 01/30 and white count remained above 20,000 he was changed to Zosyn. Left regime white count fell cough subsided was feeling much better today time discharge. Sat and above 90 on his usual 2-3 L nasal cannula. He will complete 7 more days of Cipro and doxycycline sputum and blood cultures were negative Time Spent with Patient Time attestation: Total time spent providing and/or coordinating discharge services: 35 minutes Exam Narrative: Exam Narrative: condition on discharge blood pressure 120/58 pulse is 84 saturating 91 92% on 2.5 L nasal cannula lungs appear clear with maybe faint crackle posteriorly on the right CV regular no murmurs abdomen soft nontender extremities without edema distal pulses are 1+ to chair with physical therapy taken a diet well coughing much less and feeling better. Discharge Plan Discharge Attending physician on discharge: David Winn Consulting providers: [facility] ; Christian Leger ; Tobin Blanchard ; Nikhil Tobin ; Marlo Bravo ; Johny Parks ; Wojciech Michaud ; Korey Mari V. ; Julia Macias Discharging Clinician: David Winn Patient Disposition: NH Detention/Asst Living Activity: as tolerated Diet: low sodium Patient Instructions: Antibiotic Form, COPD (Chronic Obstructive Pulmonary Disease) (DC) Stand Alone Forms: General Discharge Information Follow-up/Referrals: [facility] [Long Term] - 1 Week Discharge Medications: New ipratropium bromide 0.02 % Solution 0.5 mg in
== END 2020-02-03 17:00 | DRG 189 ==
LOC: ANHED 02:14 → ANHICU 07:25 → ANHIMU 01-26 07:17 → ANH3MEDSUR 01-28 07:44 → ANHICU 02-06 16:39 → ANHIMU 02-06 16:39
PROVIDERS: Family Medicine; Internal Medicine; Admitting Provider Family Medicine; Emergency Provider General Practice; PCP Emergency Medicine; Visit Provider Internal Medicine
DX: J96.22 Acute and chronic respiratory failure with hypercapnia (principal); J18.9 Pneumonia, unspecified organism; E87.1 Hypo-osmolality and hyponatremia; J96.21 Acute and chronic respiratory failure with hypoxia; Z99.81 Dependence on supplemental oxygen; Z20.828 Contact with and (suspected) exposure to other viral communicable diseases; J43.9 Emphysema, unspecified; I10 Essential (primary) hypertension; E78.5 Hyperlipidemia, unspecified; I73.9 Peripheral vascular disease, unspecified; G62.9 Polyneuropathy, unspecified; Z99.3 Dependence on wheelchair; Z87.891 Personal history of nicotine dependence; Z79.899 Other long term (current) drug therapy
CPT/HCPCS: 36415; 36600; 71045; 71046; 80048; 80053; 82375; 82570; 82607; 82728; 82746; 82805; 83050; 83605; 83615; 83735; 83880; 84300; 84484; 85025; 85027; 85380; 85610; 85730; 86140; 87040; 87070; 87205; 87635; 93005; 94002; 94003; 94640; 96361; 96365; 96375; 99291; A9270; C9803; J0456; J0696; J1650; J2543; J2920; J2930; J7030; J7050; J7512; U0003

== ENCOUNTER 2020-02-09 20:42 | Inpatient (IN) | payer OTHER, SELFPAY ==
--- NOTE | ~2020-02-09 | XR_ITS ---
XR chest 1V portable DATE: 02/09/2020 21:55 INDICATION: Increasing shortness of breath all day TECHNIQUE: Portable upright AP chest on 02/09/2020 at 2142 hours COMPARISON: 01/31/2020 portable AP chest 04/23/2019 2 view chest FINDINGS: There is persistent prominent patchy consolidation in the right, particularly in the mid to upper lung and right lower lung. There is mild right pleural effusion. There is mild patchy infiltrate in the left mid-upper lung. There is stable soft tissue thickening along the left lateral apical region. Heart size is within normal limits. Aortic calcification. Postoperative changes of the lower cervical and cervicothoracic spine. Diffuse osteopenia. IMPRESSION: Persistent bilateral infiltrates, right greater than left, mild persistent right pleural effusion Reviewed, dictated and finalized at location A. IMPRESSION: Persistent bilateral infiltrates, right greater than left, mild per sistent right pleural effusion
--- NOTE | 2020-02-09 20:41 | ED.SOB ---
HPI - SOB/Dyspnea General Chief Complaint: Shortness of Breath/Dyspnea Stated Complaint: sob Source: EMS Mode of arrival: ambulatory Limitations: no limitations History of Present Illness HPI Narrative: 64 years old white male, fpc, brought to the emergency room because of shortness of breath since yesterday. Patient reported that the oxygen machine was not working, then after the nurse found out his oxygen level was not going up as fast as she expected. Patient denies any new symptoms. Currently patient on doxycycline will end on February 17 and Cipro, will end on February 10. For pneumonia, Patient went to [facility] last night for the same symptoms and was discharged on no medications. Patient believes that he does not need to be here refusing any blood work-up or chest x-ray. But declined to sign AGAINST MEDICAL ADVICE. Patient normally on 2 and half to 3 L of oxygen via nasal cannula and CPAP machine at night Related Data Home Medications Medication Instructions Recorded Confirmed Besivance 1 drp RIGHTEYE TID 01/24/20 01/24/20 Fleet Enema 118 ml NM DAILY PRN 01/24/20 01/24/20 Lotemax SM 1 drp RIGHTEYE TID 01/24/20 01/24/20 Prolensa 1 drp RIGHTEYE DAILY 01/24/20 01/24/20 acetaminophen 650 mg PO QID PRN 01/24/20 01/24/20 alum-mag hydroxide-simeth [Mylanta See Rx Instructions .ROUTE 01/24/20 01/24/20 Maximum Strength] .COMPLEX PRN amlodipine 10 mg PO DAILY 01/24/20 01/24/20 atorvastatin 10 mg PO HS 01/24/20 01/24/20 benzonatate 200 mg PO TID PRN 01/24/20 01/24/20 bisacodyl [Dulcolax (bisacodyl)] 10 mg NM DAILY PRN 01/24/20 01/24/20 budesonide 0.5 mg INHALATION BID 01/24/20 01/24/20 bupropion HCl 150 mg PO DAILY 01/24/20 01/24/20 carvedilol 6.25 mg PO BID 01/24/20 01/24/20 diclofenac sodium 75 mg PO BID 01/24/20 01/24/20 diphenhydramine HCl [Benadryl 25 mg PO BID PRN 01/24/20 01/24/20 Allergy] docusate sodium [Colace] 100 mg PO BID 01/24/20 01/24/20 guaifenesin 400 mg PO BID PRN 01/24/20 01/24/20 hydroxyzine HCl See Rx Instructions .ROUTE .COMPLEX 01/24/20 01/24/20 ipratropium-albuterol See Rx Instructions .ROUTE 01/24/20 01/24/20 .COMPLEX PRN magnesium hydroxide [[place]ston Milk 30 ml PO DAILY PRN 01/24/20 01/24/20 of Magnesia] melatonin 9 mg PO HS 01/24/20 01/24/20 multivitamin 1 tablet PO DAILY 01/24/20 01/24/20 pregabalin See Rx Instructions .ROUTE .COMPLEX 01/24/20 01/24/20 silver sulfadiazine 1 applic TOPICAL BID 01/24/20 01/24/20 tamsulosin 0.4 mg PO HS 01/24/20 01/24/20 triamcinolone acetonide 1 applic TOPICAL BID 01/24/20 01/24/20 Allergies Allergy/AdvReac Type Severity Reaction Status Date / Time No Known Allergies Allergy Verified 02/09/20 22:18 Review of Systems Review of Systems: Narrative: CONSTITUTIONAL: Denies fever, chills, or sweats. EYES: Denies visual changes, redness, or discharge. ENT: Denies rhinorrhea, congestion, sore throat, or otalgia. CARDIOVASCULAR: Denies chest pain, palpitations, or edema. RESPIRATORY: Chronic productive cough and shortness of breath GASTROINTESTINAL: Denies abdominal pain, nausea, vomiting, or diarrhea. GENITOURINARY: Denies dysuria or hematuria. SKIN: Denies rash or itching. MUSCULOSKELETAL: Denies back pain, joint pain, or myalgia. NEUROLOGIC: Denies headache, numbness, or weakness. PSYCHIATRIC: Denies anxiety or depression. [facility] Past Medical History Medical History Anxiety BPH (benign prostatic hyperplasia) Chronic lower back pain COPD (chronic obstructive pulmonary disease) Depression Emphysema of lung Generalized weakness HTN (hypertension) Inguinal hernia September 2011 Lung nodules RLL Neck injury Normocytic anemia Pneumonia Protein calorie malnutrition Surgical History Surgical History History of elbow surgery History of inguinal hernia repair History of spinal surgery C3-C6 (C3, 4, and 5 removed and replaced with hardware)
[2020-02-09 20:45] VITALS: BP 133/60; PULSE 80; RESP 16; TEMP 36.9; O2SAT 97
--- NOTE | 2020-02-09 20:58 | ECG_ITS ---
Measurements Intervals [place] Rate: 76 P: 67 WV: 184 QRS: 64 QRSD: 98 T: 71 QT: 370 QTc: 418 Interpretive Statements SINUS RHYTHM NORMAL ECG Electronically Signed On 02-10-2020 6:45:41 CDT by Wojciech Michaud D.O.
[2020-02-09 21:22] LABS: Base Excess ABG 18.8 mEq/l (+/-2.0); Fractional Inspired Oxygen 34 %; HCO3 ABG 50.6 mEq/l (22.0-26.0); Oxygen Content ABG 14.2 %vol (16.0-22.0); Oxygen Saturation ABG 95.7 % (95.0-100.0); Oxyhemoglobin 96.1 % THb (90.0-100.0); PO2 ABG 100.6 mmHg (80.0-100.0); PO2 FiO2 Ratio Arterial Blood 2.96 %; Total Hemoglobin 10.4 g/dL (12.0-18.0)
[2020-02-09 21:24] LABS: pH ABG 7.232 (7.350-7.450)
[2020-02-09 21:25] LABS: PCO2 ABG 123.1 mmHg (35.0-45.0)
[2020-02-09 21:28] LABS: Device NASAL CANNULA; Liters per Minute 3.5 LPM; Modified Allen's Test Pass; Site Drawn RIGHT RADIAL
[2020-02-09 21:45] LABS: Basophils Percent Auto 0.2 % (0.2-1.2); Hematocrit 31.7 % (42.0-52.0); Hemoglobin 9.4 g/dL (14.0-18.0); Immature Granulocyte Absolute 0.02 K/mm3 (0.00-0.031); Immature Granulocyte Percent A 0.2 % (0-0.5); Lymphocytes Absolute Auto 0.93 K/mm3 (0.9-3.2); Mean Corpuscular HGB Conc 29.7 g/dl (32-36); Mean Corpuscular Hemoglobin 28.2 pg (26-34); Mean Corpuscular Volume 95.2 fl (80-100); Monocytes Absolute Auto 0.5 K/mm3 (0.1-0.6); Monocytes Percent Auto 6.2 % (2.6-8.5); Neutrophils Absolute Auto 6.9 K/mm3 (1.3-6.7); Neutrophils Percent Auto 82.4 % (45.5-73.1); Platelet Count Result 338 k/mm3 (150-375); Red Blood Count 3.33 M/mm3 (4.6-6.20); Red Cell Distribution Width 12.2 % (11.5-14.5); White Blood Count 8.4 K/mm3 (4.5-10.0)
[2020-02-09 21:54] LABS: INR 1.1; Prothrombin Time 13.9 Seconds (11.1-14.7)
[2020-02-09 21:55] LABS: Partial Thromboplastin Time 32.9 SECONDS (22.3-36.8)
[2020-02-09 21:58] LABS: Hypochromasia 1+ (NORMAL); Platelet Estimate Adequate (Adequate)
[2020-02-09 22:10] LABS: Magnesium 1.9 mg/dL (1.6-2.3)
[2020-02-09 22:11] LABS: Alanine Aminotransferase 20 U/L (4-50); Albumin Level 3.1 g/dL (3.5-5.1); Alkaline Phosphatase 64 U/L (38-126); Anion Gap 7.99999 mmol/L (8-16); Aspartate Amino Transferase 21 U/L (17-59); Bilirubin,Total 0.1 mg/dL (0.2-1.3); Blood Urea Nitrogen 15 mg/dL (9-20); Calcium 8.6 mg/dL (8.4-10.2); Carbon Dioxide > 40 mmol/L (22-30); Chloride 85 mmol/L (98-107); Estimated CRCL calculation 133 ml/min; Estimated Glomerular Filt Rate > 60; Glucose 137 mg/dL (75-110); Potassium 4.5 mmol/L (3.4-5.0); Sodium 133 mmol/L (137-145)
[2020-02-09 22:15] VITALS: PULSE 76; RESP 20; O2SAT 93
[2020-02-09 22:23] LABS: NT Pro B Type Natriuretic Pept 93 PG/ML (5-100); Troponin I < 0.012 ng/mL (0.000-0.034)
[2020-02-09 22:45] VITALS: BP 132/58; PULSE 76; RESP 20; O2SAT 90
[2020-02-09 23:40] VITALS: BP 150/60; PULSE 79; RESP 20; O2SAT 92
[2020-02-10] VITALS (31 sets, daily range): BP systolic 129–162; BP diastolic 57–68; PULSE 70–100; RESP 16–26; TEMP 35.7–36.2; O2SAT 91–100; BMI 22.8
--- NOTE | 2020-02-10 00:21 | ADMGEN ---
This patient, Angus Stovall, was admitted to IMU Room 201-01 on 02/10/20 at 0000. Patient/family oriented to hospital policies and general routines including ID bracelet, bed and alarms, visiting hours, pain management, procedures, bathroom and other care routines, personal items, smoking policy, room service/diet, and visiting hours. Valuables list has been completed. Information on how to activate the Rapid Response Team has been discussed. Patient/Family are encouraged to report perceived risks to care and to ask questions if they do not understand what they are told or what they should do.
[2020-02-10 00:57] LABS: Alveolar/Arterial O2 Gradient 134.9 mmHg; Base Excess ABG 13.8 mEq/l (+/-2.0); Carboxyhemoglobin 0.3 % THb (0-2.0); Fractional Inspired Oxygen 45 %; HCO3 ABG 44.2 mEq/l (22.0-26.0); Methemoglobin ABG 0.4 %THb (0-1.5); Oxygen Content ABG 14.2 %vol (16.0-22.0); Oxygen Saturation ABG 91.1 % (95.0-100.0); Oxyhemoglobin 92.2 % THb (90.0-100.0); PO2 ABG 72.7 mmHg (80.0-100.0); PO2 FiO2 Ratio Arterial Blood 1.62 %; Reduced Hemoglobin 7.1 %THb (0-5.0); Total Hemoglobin 10.9 g/dL (12.0-18.0)
[2020-02-10 00:58] LABS: Modified Allen's Test Pass; PCO2 ABG 99.6 mmHg (35.0-45.0); Site Drawn LEFT RADIAL; pH ABG 7.265 (7.350-7.450)
[2020-02-10 00:59] LABS: Device BIPAP; Expiratory Pressure 8 cmH2O; Inspiratory Pressure 14 cmH2O
[2020-02-10] MEDS: ALBUTEROL SULFATE NEB 2.5 MG/0.5 ML INH 5 MG INHALATION ×2 (02:50→08:03)
[2020-02-10] MEDS: IPRATROPIUM BR 0.02% INH SOLN 0.5 MG/2.5 ML VIAL INHALATION ×4 (02:53→20:19)
[2020-02-10] MEDS: methylPREDNISolone SOD SUCC 125 MG VIAL 60 MG IV PUSH ×3 (06:15→17:27)
[2020-02-10 06:42] LABS: Alveolar/Arterial O2 Gradient 107.6 mmHg; Base Excess ABG 13.4 mEq/l (+/-2.0); Carboxyhemoglobin 0.3 % THb (0-2.0); Fractional Inspired Oxygen 40 %; HCO3 ABG 42.3 mEq/l (22.0-26.0); Methemoglobin ABG 0.4 %THb (0-1.5); Oxygen Content ABG 14.4 %vol (16.0-22.0); Oxygen Saturation ABG 94.8 % (95.0-100.0); Oxyhemoglobin 94.3 % THb (90.0-100.0); PO2 ABG 82.6 mmHg (80.0-100.0); PO2 FiO2 Ratio Arterial Blood 2.07 %; Total Hemoglobin 10.8 g/dL (12.0-18.0); pH ABG 7.327 (7.350-7.450)
[2020-02-10 06:44] LABS: Device BIPAP; Modified Allen's Test Pass; PCO2 ABG 82.6 mmHg (35.0-45.0); Site Drawn LEFT RADIAL
[2020-02-10 06:45] LABS: Expiratory Pressure 8 cmH2O; Inspiratory Pressure 18 cmH2O
[2020-02-10 10:15] LABS: Hematocrit 31.6 % (42.0-52.0); Hemoglobin 9.6 g/dL (14.0-18.0); Mean Corpuscular HGB Conc 30.4 g/dl (32-36); Mean Corpuscular Hemoglobin 28.5 pg (26-34); Mean Corpuscular Volume 93.8 fl (80-100); Mean Platelet Volume 8.2 fl (7.4-10.4); Platelet Count Result 357 k/mm3 (150-375); Red Blood Count 3.37 M/mm3 (4.6-6.20); Red Cell Distribution Width 12.2 % (11.5-14.5); White Blood Count 6.8 K/mm3 (4.5-10.0)
[2020-02-10 10:44] LABS: Anion Gap 6.99999 mmol/L (8-16); Blood Urea Nitrogen 18 mg/dL (9-20); Calcium 8.5 mg/dL (8.4-10.2); Carbon Dioxide > 40 mmol/L (22-30); Chloride 84 mmol/L (98-107); Estimated CRCL calculation 128 ml/min; Estimated Glomerular Filt Rate > 60; Glucose 229 mg/dL (75-110); Magnesium 1.7 mg/dL (1.6-2.3); Potassium 4.4 mmol/L (3.4-5.0); Sodium 131 mmol/L (137-145)
[2020-02-10] MEDS: amLODIPine BESYLATE 5 MG TABLET 10 MG PO (12:08)
[2020-02-10] MEDS: buPROPion HCL XL (24 HR) 150 MG TABCR PO (12:08)
[2020-02-10] MEDS: DOXYCYCLINE HYCLATE 100 MG TABLET PO (12:08)
[2020-02-10] MEDS: CIPROFLOXACIN 500 MG TAB PO ×2 (12:09→20:00)
[2020-02-10] MEDS: carvediloL 6.25 MG TABLET PO ×2 (12:09→19:59)
[2020-02-10] MEDS: MULTIVITAMINS THERAPEUTIC TAB (*BKC) 1 TABLET PO (12:09)
[2020-02-10] MEDS: DOCUSATE SODIUM 100 MG CAPSULE PO ×2 (12:10→20:01)
[2020-02-10] MEDS: ALPRAZolam 0.5 MG TABLET PO ×2 (12:23→20:02)
[2020-02-10] MEDS: ALBUTEROL SULFATE NEB 2.5 MG/0.5 ML INH INHALATION ×2 (13:30→20:19)
[2020-02-10] MEDS: GABAPENTIN 100 MG CAPSULE 200 MG PO ×2 (15:15→20:01)
--- NOTE | 2020-02-10 15:15 | PM.IMHP ---
H&P: HPI History of Present Illness Date/Time: 02/10/20 15:15 Chief complaint: Acute hypercapnic respiratory failure, COPD Narrative: Angus Stovall is a 64 year old male with past medical history of severe COPD chronic respiratory failure hypercapnia on home oxygen and BiPAP patient was just recently treated for exacerbation of COPD hypercapnic respiratory failure and was discharged home on steroid and antibiotic and to continue neb treatment, patient is a resident of nursing and he was found hypoxic and was not wearing his oxygen, patient was restarted on his oxygen however his symptoms have not improved and he was desaturation, was sent to emergency department for further evaluate, is very difficult communicate he does not want to follow-up and instruction and was refusing to wear BiPAP and get his blood drawn, patient is admitted with exacerbation of COPD with hypercapnic respiratory failure initially his CO2 was 123 and a pH of 7.232, patient was treated with neb, Solu-Medrol was placed on BiPAP this states slightly improved his CO2 and pH, patient insisting to go home, however he is willing to stay 1 more day, and has agreed to wear his BiPAP, will continue Solu-Medrol updraft and BiPAP will monitor his ABG and further recommendation to follow. Review of Systems Review of Systems: ROS unobtainable: Yes unobtainable due to medical condition PMFSH Past Medical History Medical History Anxiety BPH (benign prostatic hyperplasia) Chronic lower back pain COPD (chronic obstructive pulmonary disease) Depression Emphysema of lung Generalized weakness HTN (hypertension) Inguinal hernia September 2011 Lung nodules RLL Neck injury Normocytic anemia Pneumonia Protein calorie malnutrition Surgical History Surgical History History of elbow surgery History of inguinal hernia repair History of spinal surgery C3-C6 (C3, 4, and 5 removed and replaced with hardware) post neck injury in April 2003 with nerve damage History of tonsillectomy History of vascular surgery Stents placed in lt leg Family History Family History Father Family history of malignant neoplasm, Onset Age: 77 Family history of malignant neoplasm of esophagus, Onset Age: 75 Mother Family history of dementia Social History Social History Smoking packs per day: 1 Smoking cigarettes per day: 20.0 Years smoked: 35 Smoking pack-years: 35.00 Smoking status: Former smoker Tobacco type: cigarettes Smoking end date: 06/07/15 Alcohol intake: never Drinks per week: 0 Substance use: never Substance use type: does not use Gender identity (if verbalized by the patient): Male Sexual Orientation (if Verbalized by the Patient): Straight or Heterosexual Spiritual care concerns: No Agree to blood products: Yes Meds Home Medications and Allergies Home Medications Medication Instructions Recorded Confirmed Type Besivance 1 drp RIGHTEYE TID 01/24/20 02/10/20 History Fleet Enema 118 ml PA DAILY PRN 01/24/20 02/10/20 History Lotemax SM 1 drp RIGHTEYE TID 01/24/20 02/10/20 History Prolensa 1 drp RIGHTEYE DAILY 01/24/20 02/10/20 History acetaminophen 650 mg PO QID PRN 01/24/20 02/10/20 History alum-mag hydroxide-simeth [Mylanta 30 ml PO DAILY PRN 01/24/20 02/10/20 History Maximum Strength] amlodipine 10 mg PO DAILY 01/24/20 02/10/20 History atorvastatin 10 mg PO HS 01/24/20 02/10/20 History benzonatate 200 mg PO BID PRN 01/24/20 02/10/20 History bisacodyl [Dulcolax (bisacodyl)] 10 mg PA DAILY PRN 01/24/20 02/10/20 History budesonide 0.5 mg INHALATION BID 01/24/20 02/10/20 History bupropion HCl 150 mg PO DAILY 01/24/20 02/10/20 History carvedilol 6.25 mg PO BID 01/24/20 02/10/20 History diclofenac sodium 75 mg PO BID 01/24/20
[2020-02-10 16:58] LABS: Alveolar/Arterial O2 Gradient 70.9 mmHg; Base Excess ABG 14.3 mEq/l (+/-2.0); Fractional Inspired Oxygen 30 %; HCO3 ABG 41.2 mEq/l (22.0-26.0); Oxygen Saturation ABG 92.3 % (95.0-100.0); Oxyhemoglobin 92.3 % THb (90.0-100.0); PO2 ABG 65.2 mmHg (80.0-100.0); PO2 FiO2 Ratio Arterial Blood 2.17 %; pH ABG 7.412 (7.350-7.450)
[2020-02-10 17:01] LABS: Device NON-INVASIVE VENT; Non-Invasive Inspiratory Pressure 18 CMH2O; Non-Invasive Vent Rate 18 /MIN; PCO2 ABG 66.2 mmHg (35.0-45.0); Site Drawn LEFT BRACHIAL
[2020-02-10 17:02] LABS: Non-Invasive Expiratory Pressure 8 CMH2O
[2020-02-10] MEDS: DICLOFENAC SOD 75 MG TABLET.EC PO (17:27)
[2020-02-10 18:12] LABS: SARS-CoV-2 RNA PCR Negative
[2020-02-10] MEDS: ATORVASTATIN 10 MG TABLET PO (19:59)
[2020-02-10] MEDS: TAMSULOSIN HCL 0.4 MG CAPSULE PO (20:00)
[2020-02-10] MEDS: MELATONIN 3 MG TABLET 9 MG PO (20:01)
[2020-02-10] MEDS: BENZONATATE 100 MG CAPSULE 200 MG PO (20:02)
[2020-02-10] MEDS: guaiFENesin 200 MG/10 ML UDC 400 MG PO (20:03)
[2020-02-10] MEDS: BUDESONIDE RESPULE NEB 0.5 MG/2 ML AMP INHALATION (20:19)
[2020-02-11] VITALS (13 sets, daily range): BP systolic 126–137; BP diastolic 59–72; PULSE 63–81; RESP 18–20; TEMP 35.9–36.6; O2SAT 92–96
[2020-02-11] MEDS: methylPREDNISolone SOD SUCC 125 MG VIAL 60 MG IV PUSH ×2 (00:12→05:12)
[2020-02-11] MEDS: IPRATROPIUM BR 0.02% INH SOLN 0.5 MG/2.5 ML VIAL INHALATION ×2 (02:32→07:54)
[2020-02-11] MEDS: ALBUTEROL SULFATE NEB 2.5 MG/0.5 ML INH INHALATION ×2 (02:32→07:53)
[2020-02-11] MEDS: GABAPENTIN 100 MG CAPSULE 200 MG PO (05:12)
[2020-02-11] MEDS: BUDESONIDE RESPULE NEB 0.5 MG/2 ML AMP INHALATION (07:54)
[2020-02-11 08:04] LABS: Base Excess ABG 13.6 mEq/l (+/-2.0); Fractional Inspired Oxygen 32 %; HCO3 ABG 40.2 mEq/l (22.0-26.0); Oxygen Saturation ABG 92.6 % (95.0-100.0); Oxyhemoglobin 92.2 % THb (90.0-100.0); PO2 FiO2 Ratio Arterial Blood 2.06 %; pH ABG 7.415 (7.350-7.450)
[2020-02-11 08:07] LABS: Device NASAL CANNULA; Modified Allen's Test Pass; PCO2 ABG 64.2 mmHg (35.0-45.0); Site Drawn LEFT RADIAL
[2020-02-11] MEDS: DOCUSATE SODIUM 100 MG CAPSULE PO (08:39)
[2020-02-11] MEDS: amLODIPine BESYLATE 5 MG TABLET 10 MG PO (08:39)
[2020-02-11] MEDS: DOXYCYCLINE HYCLATE 100 MG TABLET PO (08:39)
[2020-02-11] MEDS: DICLOFENAC SOD 75 MG TABLET.EC PO (08:40)
[2020-02-11] MEDS: CIPROFLOXACIN 500 MG TAB PO (08:40)
[2020-02-11] MEDS: carvediloL 6.25 MG TABLET PO (08:40)
[2020-02-11] MEDS: MULTIVITAMINS THERAPEUTIC TAB (*BKC) 1 TABLET PO (08:40)
--- NOTE | 2020-02-11 10:41 | PM.DS ---
DS: Admitting Diagnosis Admitting Diagnosis Admitting Diagnosis: Acute hypercapnic respiratory failure, COPD DS: Discharge Diagnosis Discharge Diagnosis (1) Acute hypercapnic respiratory failure: Code(s): J96.02 - Acute respiratory failure with hypercapnia Status: Acute Assessment and Plan: Angus Stovall is a 64 year old male with past medical history of severe COPD chronic respiratory failure hypercapnia on home oxygen and BiPAP patient was just recently,was treated for exacerbation of COPD hypercapnic respiratory failure and was discharged home on steroid and antibiotic and to continue neb treatment, patient is a resident of nursing and he was found hypoxic and was not wearing his oxygen, patient was restarted on his oxygen however his symptoms have not improved and he was desaturation, was sent to emergency department for further evaluate, is very difficult communicate he does not want to follow-up and instruction and was refusing to wear BiPAP and get his blood drawn, patient is admitted with exacerbation of COPD with hypercapnic respiratory failure initially his CO2 was 123 and a pH of 7.232, patient was treated with neb, Solu-Medrol was placed on BiPAP this states slightly improved his CO2 and pH, patient insisting to go home, however he is willing to stay 1 more day, and has agreed to wear his BiPAP, will continue Solu-Medrol updraft and BiPAP will monitor his ABG and further recommendation to follow. (2) Hyponatremia: Code(s): E87.1 - Hypo-osmolality and hyponatremia Status: Acute Assessment and Plan: patient with mild hyponatremia most likely secondary to chronic lung disease and poor p.o. intake will monitor (3) Pneumonia: Code(s): J18.9 - Pneumonia, unspecified organism Status: Acute Assessment and Plan: patient was just discharged after being treated with pneumonia will continue Cipro and doxycycline DS: Summary Hospital Course Reason for hospitalization: Chief complaint: Acute hypercapnic respiratory failure, COPD Narrative: Angus Stovall is a 64 year old male with past medical history of severe COPD chronic respiratory failure hypercapnia on home oxygen and BiPAP patient was just recently treated for exacerbation of COPD hypercapnic respiratory failure and was discharged home on steroid and antibiotic and to continue neb treatment, patient is a resident of nursing and he was found hypoxic and was not wearing his oxygen, patient was restarted on his oxygen however his symptoms have not improved and he was desaturation, was sent to emergency department for further evaluate, is very difficult communicate he does not want to follow-up and instruction and was refusing to wear BiPAP and get his blood drawn, patient is admitted with exacerbation of COPD with hypercapnic respiratory failure initially his CO2 was 123 and a pH of 7.232, patient was treated with neb, Solu-Medrol was placed on BiPAP this states slightly improved his CO2 and pH, patient insisting to go home, however he is willing to stay 1 more day, and has agreed to wear his BiPAP, will continue Solu-Medrol updraft and BiPAP will monitor his ABG and further recommendation to follow. Hospital Course: Patient with severe emphysema, elevated CO2 and BIPAP dependent with baseline CO2 of about 60%, presented with elevated CO2 of 123 he was placed on BIPAP and his CO2 now at his baseline and he wish to be discharge back to [place], patient is explained and he understands that he is BIPAP dependent he must wear his BIPAP as much as possible during day and all night. Respiratory therapist will provide the patient with BIPAP settings. Patient to follow up with his primary care and restaurant crew member as soon as possible. Status at Discharge Functional status at discharge: independent ambulation Overall status at discharge: patient is back to baseline Time Spent with Patient Time attestation: Total time spent providing and/or coordinating discha
--- NOTE | 2020-02-13 09:23 | PCRCNOTE ---
Spoke to Martha, RN at [facility] in regards to Angus Stovall current BIPAP settings and compliance at the SNF. She stated that they have a company, [employer], that provides BIPAP unit, she is unsure of his actual settings, but will call me back when she can to let me know what they are. Cuurent BIPAP setting at time of D/C was 18/8 with a rate of 18. Bleed-in of 30% O2. Full Face Mask size medium. States patient may wear it for a couple hours at night, 4 hours at most. They encourage he wear it as much as he can, and he is aware of the importance of wearing the BIPAP. I asked Martha to call [facility] at any time if she has any questions or concerns in regards to settings.
== END 2020-02-11 12:47 | DRG 189 ==
LOC: ANHED 22:23 → ANHIMU 02-10 11:44
PROVIDERS: Admitting Provider Internal Medicine; Emergency Provider Emergency Medicine; PCP Emergency Medicine; Visit Provider Family Medicine
DX: J96.22 Acute and chronic respiratory failure with hypercapnia (principal); J18.9 Pneumonia, unspecified organism; E87.1 Hypo-osmolality and hyponatremia; Z99.81 Dependence on supplemental oxygen; Z20.828 Contact with and (suspected) exposure to other viral communicable diseases; J43.9 Emphysema, unspecified; I10 Essential (primary) hypertension; D64.9 Anemia, unspecified; F32.9 Major depressive disorder, single episode, unspecified; F41.9 Anxiety disorder, unspecified; N40.0 Benign prostatic hyperplasia without lower urinary tract symptoms; Z28.21 Immunization not carried out because of patient refusal; Z79.899 Other long term (current) drug therapy
CPT/HCPCS: 36415; 36600; 71045; 80048; 80053; 82375; 82805; 83050; 83735; 83880; 84484; 85025; 85027; 85610; 85730; 87040; 87635; 93005; 94002; 94003; 94640; 99291; A9270; C9803; J2930; U0003

== ENCOUNTER 2020-04-03 08:44 | Inpatient (IN) | payer OTHER, MEDICAID, SELFPAY ==
[2020-04-03] VITALS (21 sets, daily range): BP systolic 121–138; BP diastolic 59–70; PULSE 70–102; RESP 14–30; TEMP 36.2–36.9; O2SAT 84–100; BMI 22.9
--- NOTE | ~2020-04-03 | XR_ITS ---
XR chest 1V portable DATE: 04/03/2020 09:20 INDICATION: Shortness of breath. Low oxygen saturation. History of COPD and hypertension. TECHNIQUE: Portable AP chest on 03/26/2020 at 0917 hours COMPARISON: 02/09/2020 portable AP chest at 2143 hours FINDINGS: There is stable infiltrate in the left mid to upper lung. There is relatively stable soft tissue density along the lateral left apical area. There is improvement of right upper lobe infiltrate and right lower lobe infiltrate and diminished ri ght pleural effusion as well as resolution of pulmonary vascular congestion and pulmonary interstitia l edema since 02/2020. Bilateral hyperinflation, consistent with COPD. Heart size is normal. Aortic arch calcification. IMPRESSION: Diminished congestive changes and improvement of right upper and lower lung infiltrates s juan carlos 02/09/2020 Reviewed, dictated and finalized at location A. IMPRESSION: Diminished congestive changes and improvement of right upper and lo wer lung infiltrates since 02/09/2020
--- NOTE | 2020-04-03 08:49 | ECG_ITS ---
Measurements Intervals [place] Rate: 86 P: 77 TX: 171 QRS: 75 QRSD: 96 T: 89 QT: 344 QTc: 412 Interpretive Statements SINUS RHYTHM LEFT ATRIAL ENLARGEMENT INCOMPLETE RIGHT BUNDLE BRANCH BLOCK BASELINE WANDER- I, II, AVR, AVL, AVF, V1-V6 BORDERLINE ECG Electronically Signed On 04-03-2020 9:46:34 CDT by Wojciech Michaud D.O.
--- NOTE | 2020-04-03 08:51 | ED.SOB ---
HPI - SOB/Dyspnea General Chief Complaint: Shortness of Breath/Dyspnea Stated Complaint: LOW O2 SATS Time Seen by Provider: 04/03/20 08:49 History of Present Illness HPI Narrative: Brought in by EMS from [facility] for SOB. He was feeling SOB when he awoke this morning. Staff checked O2 saturation and it was reportedly in the 50s. He was given a nebulizer treatment and placed on 4L O2 by [place], he is on 3L at baseline. After these interventions he improved to the mid 90s. On arrival to the ED he reports that he is feeling fine. No fever, CP Related Data Home Medications Medication Instructions Recorded Confirmed acetaminophen 650 mg PO QID PRN 01/24/20 04/03/20 amlodipine 10 mg PO DAILY 01/24/20 04/03/20 atorvastatin 10 mg PO HS 01/24/20 04/03/20 budesonide 0.5 mg INHALATION BID 01/24/20 04/03/20 carvedilol 6.25 mg PO BID 01/24/20 04/03/20 diphenhydramine HCl [Benadryl 25 mg PO BID PRN 01/24/20 04/03/20 Allergy] docusate sodium [Colace] 100 mg PO BID 01/24/20 04/03/20 ipratropium-albuterol 3 ml INHALATION Q6H PRN 01/24/20 04/03/20 multivitamin 1 tablet PO DAILY 01/24/20 04/03/20 tamsulosin 0.4 mg PO HS 01/24/20 04/03/20 triamcinolone acetonide 1 applic TOPICAL BID PRN 01/24/20 04/03/20 gabapentin 200 mg PO TID 02/10/20 04/03/20 melatonin 3 mg tablet 9 mg PO HS 03/26/20 04/03/20 alum-mag hydroxide-simeth [Mylanta] 30 ml PO Q4H PRN 04/03/20 04/03/20 benzonatate 1 mg PO BID 04/03/20 04/03/20 bimatoprost [Lumigan] 1 drp OPHTHALMIC (EYE) HS 04/03/20 04/03/20 bisacodyl [Dulcolax (bisacodyl)] 10 mg PA DAILY 04/03/20 04/03/20 brimonidine [Alphagan P] 1 drp OPHTHALMIC (EYE) TID 04/03/20 04/03/20 bupropion HCl 150 mg PO DAILY 04/03/20 04/03/20 diclofenac sodium 75 mg PO BID 04/03/20 04/03/20 fluticasone furoate-vilanterol 1 inh INHALATION DAILY 04/03/20 04/03/20 [Breo Ellipta] guaifenesin 400 mg PO QID 04/03/20 04/03/20 hydroxyzine HCl 25 mg PO Q8H 04/03/20 04/03/20 latanoprost 1 drp OPHTHALMIC (EYE) HS 04/03/20 04/03/20 magnesium hydroxide [Milk of 400 mg PO DAILY 04/03/20 04/03/20 Magnesia] sodium phosphates [Fleet Enema] 118 ml PA ONCE 04/03/20 04/03/20 travoprost 1 drp OPHTHALMIC (EYE) QPM 04/03/20 04/03/20 umeclidinium [Incruse Ellipta] 1 inh INHALATION HS 04/03/20 04/03/20 Allergies Allergy/AdvReac Type Severity Reaction Status Date / Time No Known Allergies Allergy Verified 04/03/20 09:04 Review of Systems Review of Systems: All systems reviewed & are unremarkable except as noted in HPI and below Constitutional: Constitutional: Denies fever(s) ENT: Denies sore throat Cardiovascular: Cardiovascular: Denies chest pain Respiratory: Respiratory: Reports cough and Reports dyspnea Gastrointestinal: Gastrointestinal: Denies abdominal pain, Denies nausea and Denies vomiting Genitourinary: Genitourinary: Denies dysuria Neurologic: Denies confusion and Denies weakness [facility] Past Medical History Medical History (Updated 04/03/20 @ 13:05 by Mariano Sy MD) Anxiety BPH (benign prostatic hyperplasia) Chronic lower back pain COPD (chronic obstructive pulmonary disease) Depression Emphysema of lung Generalized weakness HTN (hypertension) Inguinal hernia September 2011 Lung nodules RLL Neck injury Normocytic anemia Pneumonia Protein calorie malnutrition Surgical History Surgical History History of elbow surgery History of inguinal hernia repair History of spinal surgery C3-C6 (C3, 4, and 5 removed and replaced with hardware) post neck injury in April 2003 with nerve damage History of tonsillectomy History of vascular surgery Stents placed in lt leg Family History Family History Father Family history of malignant neoplasm, Onset Age: 77 Family history of malignant neoplasm of esophagus, Onset Age: 75 Mother Family history of dementia Social History Social
[2020-04-03 09:04] LABS: Alveolar/Arterial O2 Gradient 55.9 mmHg; Base Excess ABG 12.9 mEq/l (+/-2.0); Fractional Inspired Oxygen 32 %; HCO3 ABG 42.8 mEq/l (22.0-26.0); Oxygen Content ABG 14.7 %vol (16.0-22.0); Oxygen Saturation ABG 89.4 % (95.0-100.0); Oxyhemoglobin 90.5 % THb (90.0-100.0); PO2 FiO2 Ratio Arterial Blood 2.06 %; Total Hemoglobin 11.5 g/dL (12.0-18.0); pH ABG 7.291 (7.350-7.450)
[2020-04-03 09:05] LABS: Device NASAL CANNULA; Modified Allen's Test Pass; PCO2 ABG 90.8 mmHg (35.0-45.0); Site Drawn RIGHT RADIAL
[2020-04-03 09:10] LABS: Basophils Percent Auto 0.4 % (0.2-1.2); Eosinophils Absolute Auto 0.3 K/mm3 (0-0.3); Eosinophils Percent Auto 2.9 % (0-4.4); Hematocrit 34.3 % (42.0-52.0); Hemoglobin 10.9 g/dL (14.0-18.0); Immature Granulocyte Absolute 0.04 K/mm3 (0.00-0.031); Immature Granulocyte Percent A 0.5 % (0-0.5); Lymphocytes Absolute Auto 0.83 K/mm3 (0.9-3.2); Lymphocytes Percent Auto 9.8 % (18.3-44.2); Mean Corpuscular HGB Conc 31.8 g/dl (32-36); Mean Corpuscular Hemoglobin 28.8 pg (26-34); Mean Corpuscular Volume 90.7 fl (80-100); Mean Platelet Volume 7.9 fl (7.4-10.4); Monocytes Percent Auto 11.9 % (2.6-8.5); Neutrophils Absolute Auto 6.3 K/mm3 (1.3-6.7); Neutrophils Percent Auto 74.5 % (45.5-73.1); Platelet Count Result 177 k/mm3 (150-375); Red Blood Count 3.78 M/mm3 (4.6-6.20); Red Cell Distribution Width 12.3 % (11.5-14.5); White Blood Count 8.5 K/mm3 (4.5-10.0)
[2020-04-03] MEDS: methylPREDNISolone SOD SUCC 125 MG VIAL IV PUSH (09:14)
[2020-04-03 09:21] LABS: Anion Gap 12.99999 mmol/L (8-16); Blood Urea Nitrogen 15 mg/dL (9-20); Calcium 8.9 mg/dL (8.4-10.2); Carbon Dioxide > 40 mmol/L (22-30); Chloride 83 mmol/L (98-107); Estimated CRCL calculation 132 ml/min; Estimated Glomerular Filt Rate > 60; Glucose 116 mg/dL (75-110); Potassium 4.1 mmol/L (3.4-5.0); Sodium 136 mmol/L (137-145)
--- NOTE | 2020-04-03 14:15 | PM.IMHP ---
H&P: HPI History of Present Illness Date/Time: 04/03/20 14:15 Chief complaint: acute on chronic respiratory failure/COPD exacerba Narrative: Angus Stovall is a 64 year old male with COPD and chronic respiratory failure here for SOB. patient is on home O2 at 3 L at baseline. He also wears BiPAP at night. Previous notes state patient is BiPAP dependent at night. Patient states that there was an electrical problem at the facility and he could not plug in his BiPAP. He states he has been off the BiPAP for few days now. He was doing well until around 1:00 a.m. this morning when he awoke with increasing shortness of breath. This is not uncommon for him. He was able to return to sleep. Around 530 this morning he again woke with markedly increased shortness of breath. EMS was contacted by the nurse. He has been having a wet cough productive greenish blanchard sputum. He denies fever, chills, chest pain, palpitations, nausea, vomiting, diarrhea, constipation, abdominal pain. He does feel dehydrated and has had poor appetite for unclear reasons. He denies weight loss. Because of these symptoms he was brought to the emergency room for evaluation. In the emergency room was 84% on 3 L with a respiratory rate of 26. ABG showing a pH of 7.29, PO2 of 91 and a pCO2 of 66 on 3 L. he was placed on BiPAP. He was admitted for further care. He was also given Solu-Medrol and nebulizer treatments. Currently patient feels better. He has come off the BiPAP. Repeat ABG has been ordered. He has recent right cataract surgery a few days ago but it 'did not take' and may need to be redone. He is already inquiring about discharge Review of Systems Review of Systems: All systems reviewed & are unremarkable except as noted in HPI and below PMFSH Past Medical History Medical History (Updated 04/03/20 @ 20:37 by Tobin Blanchard MD) Anxiety BPH (benign prostatic hyperplasia) Chronic lower back pain Chronic respiratory failure COPD (chronic obstructive pulmonary disease) Depression Emphysema of lung Generalized weakness HTN (hypertension) Inguinal hernia September 2011 Lung nodules RLL Neck injury Normocytic anemia Pneumonia Protein calorie malnutrition Surgical History Surgical History History of elbow surgery History of inguinal hernia repair History of spinal surgery C3-C6 (C3, 4, and 5 removed and replaced with hardware) post neck injury in April 2003 with nerve damage History of tonsillectomy History of vascular surgery Stents placed in lt leg Family History Family History Father Family history of malignant neoplasm, Onset Age: 77 Family history of malignant neoplasm of esophagus, Onset Age: 75 Mother Family history of dementia Social History Social History (Updated 04/03/20 @ 20:32 by Tobin Blanchard MD) Social History: patient resides at [facility]. He quit tobacco by 18 months ago after smoking a pack a day for about 30 years. No alcohol drug use. He is a full code. He nominated his sister to be the individual would make medical decisions for him if he is not able. Smoking packs per day: 1 Smoking cigarettes per day: 20.0 Years smoked: 35 Smoking pack-years: 35.00 Smoking status: Former smoker Tobacco type: cigarettes Smoking end date: 06/07/15 Alcohol intake: never Drinks per week: 0 Substance use: never Substance use type: does not use Gender identity (if verbalized by the patient): Male Spiritual care concerns: No Agree to blood products: Yes Meds Home Medications and Allergies Home Medications Medication Instructions Recorded Confirmed Type acetaminophen 650 mg PO QID PRN 01/24/20 04/03/20 History amlodipine 10 mg PO DAILY 01/24/20 04/03/20 History atorvastatin 10 mg PO HS 01/24/20 04/03/20 History budesonide 0.5 mg INHALATION
[2020-04-03] MEDS: IPRATROPIUM BR 0.02% INH SOLN 0.5 MG/2.5 ML VIAL INHALATION ×2 (14:55→20:34)
[2020-04-03] MEDS: ALBUTEROL SULFATE NEB 2.5 MG/0.5 ML INH 5 MG INHALATION ×2 (14:55→20:33)
[2020-04-03 15:15] LABS: Alveolar/Arterial O2 Gradient 67.5 mmHg; Base Excess ABG 17.1 mEq/l (+/-2.0); Fractional Inspired Oxygen 32 %; HCO3 ABG 47.2 mEq/l (22.0-26.0); Oxygen Content ABG 16.2 %vol (16.0-22.0); Oxyhemoglobin 88.4 % THb (90.0-100.0); PO2 ABG 57.2 mmHg (80.0-100.0); PO2 FiO2 Ratio Arterial Blood 1.79 %; pH ABG 7.345 (7.350-7.450)
[2020-04-03 15:24] LABS: PCO2 ABG 88.4 mmHg (35.0-45.0)
[2020-04-03 15:27] LABS: Oxygen Saturation ABG 86.3 % (95.0-100.0); Site Drawn RIGHT RADIAL
[2020-04-03 15:28] LABS: Device NASAL CANNULA; Modified Allen's Test Pass
[2020-04-03] MEDS: AZITHROMYCIN 250 MG TABLET 500 MG PO (17:44)
[2020-04-03] MEDS: methylPREDNISolone SOD SUCC 125 MG VIAL 60 MG IV PUSH ×2 (17:45→20:33)
[2020-04-03] MEDS: GABAPENTIN 100 MG CAPSULE 200 MG PO (17:46)
[2020-04-03] MEDS: DICLOFENAC SOD 75 MG TABLET.EC PO (17:47)
[2020-04-03] MEDS: DOCUSATE SODIUM 100 MG CAPSULE PO (17:48)
[2020-04-03] MEDS: MELATONIN 3 MG TABLET 9 MG PO (17:49)
--- NOTE | 2020-04-03 18:31 | ADMGEN ---
This patient, Angus Stovall, was admitted to IMU Room 200-01 at 1150. Patient/family oriented to hospital policies and general routines including ID bracelet, bed and alarms, visiting hours, pain management, procedures, bathroom and other care routines, personal items, smoking policy, room service/diet, and visiting hours. Information on how to activate the Rapid Response Team has been discussed. Patient/Family are encouraged to report perceived risks to care and to ask questions if they do not understand what they are told or what they should do.
[2020-04-03] MEDS: ATORVASTATIN 10 MG TABLET PO (20:32)
[2020-04-03] MEDS: carvediloL 6.25 MG TABLET PO (20:32)
[2020-04-03] MEDS: TAMSULOSIN HCL 0.4 MG CAPSULE PO (20:32)
[2020-04-03] MEDS: BRIMONIDINE TARTRATE 0.1% 5 ML OPHTH DROPS 1 DROP EACH EYE (20:34)
[2020-04-03] MEDS: LATANOPROST 0.005% OP SOLN 2.5 ML BTL 1 DROP EACH EYE (20:34)
[2020-04-03] MEDS: BUDESONIDE RESPULE NEB 0.5 MG/2 ML AMP INHALATION (20:34)
[2020-04-03] MEDS: POLYMYXIN/TRIMETHOPRIM OPHTH 10 ML DROPS 1 DROP EACH EYE (20:35)
[2020-04-04] VITALS (28 sets, daily range): BP systolic 118–145; BP diastolic 51–72; PULSE 64–101; RESP 17–29; TEMP 36–37.6; O2SAT 94–100
[2020-04-04] MEDS: IPRATROPIUM BR 0.02% INH SOLN 0.5 MG/2.5 ML VIAL INHALATION ×4 (02:16→21:27)
[2020-04-04] MEDS: ALBUTEROL SULFATE NEB 2.5 MG/0.5 ML INH 5 MG INHALATION ×4 (02:16→21:27)
[2020-04-04] MEDS: methylPREDNISolone SOD SUCC 125 MG VIAL 60 MG IV PUSH ×4 (03:22→20:21)
[2020-04-04] MEDS: BRIMONIDINE TARTRATE 0.1% 5 ML OPHTH DROPS 1 DROP EACH EYE ×3 (06:34→20:21)
[2020-04-04] MEDS: POLYMYXIN/TRIMETHOPRIM OPHTH 10 ML DROPS 1 DROP EACH EYE ×3 (06:34→20:21)
[2020-04-04] MEDS: BUDESONIDE RESPULE NEB 0.5 MG/2 ML AMP INHALATION ×2 (07:37→21:27)
[2020-04-04] MEDS: MULTIVITAMINS THERAPEUTIC TAB (*BKC) 1 TABLET PO (09:04)
[2020-04-04] MEDS: GABAPENTIN 100 MG CAPSULE 200 MG PO ×3 (09:04→17:45)
[2020-04-04] MEDS: amLODIPine BESYLATE 5 MG TABLET 10 MG PO (09:04)
[2020-04-04] MEDS: ENOXAPARIN 40 MG/0.4 ML SYRINGE SUB-Q (09:04)
[2020-04-04] MEDS: buPROPion HCL XL (24 HR) 150 MG TABCR PO (09:06)
[2020-04-04] MEDS: DICLOFENAC SOD 75 MG TABLET.EC PO ×2 (09:06→17:44)
[2020-04-04] MEDS: AZITHROMYCIN 250 MG TABLET PO (09:07)
[2020-04-04] MEDS: carvediloL 6.25 MG TABLET PO ×2 (09:07→20:21)
[2020-04-04] MEDS: DOCUSATE SODIUM 100 MG CAPSULE PO ×2 (09:08→17:44)
[2020-04-04 09:45] LABS: Alveolar/Arterial O2 Gradient 101.7 mmHg; Base Excess ABG 11.5 mEq/l (+/-2.0); Device NASAL CANNULA; Fractional Inspired Oxygen 32 %; HCO3 ABG 37.6 mEq/l (22.0-26.0); Modified Allen's Test Pass; Oxygen Saturation ABG 91.4 % (95.0-100.0); Oxyhemoglobin 90.3 % THb (90.0-100.0); PCO2 ABG 56.6 mmHg (35.0-45.0); PO2 ABG 60.2 mmHg (80.0-100.0); PO2 FiO2 Ratio Arterial Blood 1.88 %; Site Drawn LEFT RADIAL; Total Hemoglobin 11.8 g/dL (12.0-18.0)
[2020-04-04] MEDS: MAG HYDROX/AL HYDROX/SIMETH 30 ML UDC PO (12:40)
--- NOTE | 2020-04-04 12:50 | PM.DS ---
DS: Admitting Diagnosis Admitting Diagnosis Admitting Diagnosis: acute on chronic respiratory failure/COPD exacerba DS: Discharge Diagnosis Discharge Diagnosis (1) Acute and chronic respiratory failure: Qualifiers: Respiratory failure complication: hypoxia and hypercapnia Qualified Code(s): J96.21 - Acute and chronic respiratory failure with hypoxia; J96.22 - Acute and chronic respiratory failure with hypercapnia Code(s): J96.20 - Acute and chronic respiratory failure, unspecified whether with hypoxia or hypercapnia Status: Acute Assessment and Plan: Patient states that there was an electrical problem at the facility and he could not plug in his BiPAP. He states he has been off the BiPAP for few days now. He was doing well until around 530am on the morning of admission when he awoke with markedly increased shortness of breath. EMS was contacted and was brought to the emergency room for evaluation. In the emergency room was 84% on 3 L with a respiratory rate of 26. ABG showing a pH of 7.29, PO2 of 91 and a pCO2 of 66 on 3 L. he was placed on BiPAP. He was admitted for further care. He was also given Solu-Medrol and nebulizer treatments. Suspect symptoms mostly from him being off the BiPAP for past few days. Repeat ABG today showing 7.44/56/60. He feels much better and ready for discharge. (2) COPD (chronic obstructive pulmonary disease): Qualifiers: COPD type: unspecified COPD Qualified Code(s): J44.9 - Chronic obstructive pulmonary disease, unspecified Code(s): J44.9 - Chronic obstructive pulmonary disease, unspecified Status: Acute Assessment and Plan: COPD with exacerbation possibly. We continued steroids and nebulizer treatments. We continued budesonide. (3) HTN (hypertension): Qualifiers: Hypertension type: essential hypertension Qualified Code(s): I10 - Essential (primary) hypertension Code(s): I10 - Essential (primary) hypertension Status: Acute Assessment and Plan: Blood pressure remained well controlled. We continued Norvasc and Coreg. (4) BPH (benign prostatic hyperplasia): Code(s): N40.0 - Benign prostatic hyperplasia without lower urinary tract symptoms Status: Acute Assessment and Plan: Stable. We continued Flomax. DS: Summary Hospital Course Reason for hospitalization: 64yo male with chronic respiratory failure and COPD here for acute respiratory failure. Please see H&P for details. Hospital Course: As above Time Spent with Patient Time attestation: Total time spent providing and/or coordinating discharge services:32 minutes Time spent: Greater than 30 minutes Exam Narrative: Exam Narrative: AF 98.0 136/58 101 20 100% Gen - NARD lying semi-recumbent in bed Chest - distant BS but no wheezing CV - RRR S1/S2 Abd - soft, NT/ND, +BS Ext - no edema. 2+ DP pulses bilaterally. Neuro - patient is alert and oriented x4. diffuse weakness Psych - normal mood but unhappy affect Skin - warm and dry. DS: Data Data Completed and Pending Labs on day of discharge: Labs from last 24 hours 04/04/20 04/03/20 09:35 14:18 Puncture Site Left radial Right radial ABG pH 7.440 7.345 L ABG pCO2 56.6 H 88.4 H* ABG pO2 60.2 L 57.2 L ABG PO2/FiO2 Ratio 1.88 1.79 ABG HCO3 37.6 H 47.2 H ABG O2 Saturation 91.4 L 86.3 L* ABG O2 Content 15.0 L 16.2 ABG Base Excess 11.5 17.1 A-a Gradient 101.7 67.5 Oxyhemoglobin 90.3 88.4 L Total Hemoglobin 11.8 L 13.0 O2 Delivery Device Nasal cannula Nasal cannula O2 Liters/Min 3.0 3.0 FiO2 32 32 Discharge Plan Discharge Attending physician on discharge: Tobin Blanchard Discharging Clinician: Tobin Blanchard Anticipated Discharge Date/Time: 04/04/20 12:59 Patient Disposition: NH Fdc/Asst Living Activity: as tolerated Diet: heart healthy Discharge Instructions: Please avoid
[2020-04-04] MEDS: TAMSULOSIN HCL 0.4 MG CAPSULE PO (20:21)
[2020-04-04] MEDS: MELATONIN 3 MG TABLET 9 MG PO (20:21)
[2020-04-04] MEDS: ATORVASTATIN 10 MG TABLET PO (20:21)
[2020-04-04] MEDS: LATANOPROST 0.005% OP SOLN 2.5 ML BTL 1 DROP EACH EYE (20:21)
[2020-04-05] VITALS (15 sets, daily range): BP systolic 128–155; BP diastolic 55–71; PULSE 62–96; RESP 18–22; TEMP 36–36.6; O2SAT 95–99
[2020-04-05] MEDS: ALBUTEROL SULFATE NEB 2.5 MG/0.5 ML INH 5 MG INHALATION ×3 (02:23→13:53)
[2020-04-05] MEDS: IPRATROPIUM BR 0.02% INH SOLN 0.5 MG/2.5 ML VIAL INHALATION ×3 (02:23→13:53)
[2020-04-05] MEDS: methylPREDNISolone SOD SUCC 125 MG VIAL 60 MG IV PUSH ×2 (04:00→09:04)
[2020-04-05] MEDS: POLYMYXIN/TRIMETHOPRIM OPHTH 10 ML DROPS 1 DROP EACH EYE ×2 (05:43→12:50)
[2020-04-05] MEDS: BRIMONIDINE TARTRATE 0.1% 5 ML OPHTH DROPS 1 DROP EACH EYE ×2 (05:43→12:51)
[2020-04-05] MEDS: BUDESONIDE RESPULE NEB 0.5 MG/2 ML AMP INHALATION (08:09)
[2020-04-05] MEDS: buPROPion HCL XL (24 HR) 150 MG TABCR PO (09:03)
[2020-04-05] MEDS: AZITHROMYCIN 250 MG TABLET PO (09:03)
[2020-04-05] MEDS: carvediloL 6.25 MG TABLET PO (09:03)
[2020-04-05] MEDS: DICLOFENAC SOD 75 MG TABLET.EC PO (09:04)
[2020-04-05] MEDS: ENOXAPARIN 40 MG/0.4 ML SYRINGE SUB-Q (09:04)
[2020-04-05] MEDS: DOCUSATE SODIUM 100 MG CAPSULE PO (09:04)
[2020-04-05] MEDS: GABAPENTIN 100 MG CAPSULE 200 MG PO ×2 (09:04→12:50)
[2020-04-05] MEDS: amLODIPine BESYLATE 5 MG TABLET 10 MG PO (09:05)
[2020-04-05] MEDS: MULTIVITAMINS THERAPEUTIC TAB (*BKC) 1 TABLET PO (09:05)
[2020-04-05 12:45] LABS: SARS-CoV-2 RNA PCR Negative
--- NOTE | 2020-04-05 13:50 | PM.DS ---
DS: Admitting Diagnosis Admitting Diagnosis Admitting Diagnosis: acute on chronic respiratory failure/COPD exacerba DS: Discharge Diagnosis Discharge Diagnosis (1) Acute and chronic respiratory failure: Qualifiers: Respiratory failure complication: hypoxia and hypercapnia Qualified Code(s): J96.21 - Acute and chronic respiratory failure with hypoxia; J96.22 - Acute and chronic respiratory failure with hypercapnia Code(s): J96.20 - Acute and chronic respiratory failure, unspecified whether with hypoxia or hypercapnia Status: Acute Assessment and Plan: Patient states that there was an electrical problem at the facility and he could not plug in his BiPAP. He states he has been off the BiPAP for few days now. He was doing well until around 530am on the morning of admission when he awoke with markedly increased shortness of breath. EMS was contacted and was brought to the emergency room for evaluation. In the emergency room was 84% on 3 L with a respiratory rate of 26. ABG showing a pH of 7.29, PO2 of 91 and a pCO2 of 66 on 3 L. he was placed on BiPAP. He was admitted for further care. He was also given Solu-Medrol and nebulizer treatments. Suspect symptoms mostly from him being off the BiPAP for past few days. Repeat ABG today showing 7.44/56/60. He feels much better and ready for discharge. His dicharge was held over a day because he needed a COVID screen. No issues overnight. COIVD returned negative and he was able to be discharged on 04/05/20 (2) COPD (chronic obstructive pulmonary disease): Qualifiers: COPD type: unspecified COPD Qualified Code(s): J44.9 - Chronic obstructive pulmonary disease, unspecified Code(s): J44.9 - Chronic obstructive pulmonary disease, unspecified Status: Acute Assessment and Plan: COPD with exacerbation possibly. We continued steroids and nebulizer treatments. We continued budesonide. (3) HTN (hypertension): Qualifiers: Hypertension type: essential hypertension Qualified Code(s): I10 - Essential (primary) hypertension Code(s): I10 - Essential (primary) hypertension Status: Acute Assessment and Plan: Blood pressure remained well controlled. We continued Norvasc and Coreg. (4) BPH (benign prostatic hyperplasia): Code(s): N40.0 - Benign prostatic hyperplasia without lower urinary tract symptoms Status: Acute Assessment and Plan: Stable. We continued Flomax. DS: Summary Hospital Course Reason for hospitalization: 64yo male with chronic respiratory failure and COPD here for acute respiratory failure. Please see H&P for details. Hospital Course: as above Status at Discharge Cognitive/behavioral status at discharge: PATIENT STABLE AT DISCHARGE Time Spent with Patient Time attestation: Total time spent providing and/or coordinating discharge services:32 minutes Time spent: Greater than 30 minutes Exam Narrative: Exam Narrative: Patient feels well. Wore the mask 7 hours overnight. No issues overnight. Cough better AF 97.8 155/71 80 18 98% 3L Gen - NARD lying semi-recumbent in bed Chest - distant BS with few expiratory wheezes CV - RRR S1/S2 Abd - soft, NT/ND, +BS Ext - no edema Neuro - patient is alert and oriented x4. diffuse weakness Psych - normal mood but unhappy affect Skin - warm and dry. DS: Data Data Completed and Pending Labs on day of discharge: Labs from last 24 hours 04/04/20 18:22 SARS-CoV-2 RNA (RT-PCR) Negative Discharge Plan Discharge Attending physician on discharge: Tobin Blanchard Discharging Clinician: Tobin Blanchard Anticipated Discharge Date/Time: 04/05/20 13:53 Patient Disposition: [facility] Activity: as tolerated Diet: heart healthy Discharge Instructions: Please avoid large gathering, wear face coverings in public and practice social distance. Continue to wear O2 3
== END 2020-04-05 14:08 | DRG 190 ==
LOC: ANHED 10:56 → ANHIMU 11:16
PROVIDERS: Admitting Provider Internal Medicine; Emergency Provider Emergency Medicine; PCP Emergency Medicine; Visit Provider Internal Medicine
DX: J44.1 Chronic obstructive pulmonary disease with (acute) exacerbation (principal); J96.21 Acute and chronic respiratory failure with hypoxia; J96.22 Acute and chronic respiratory failure with hypercapnia; Z20.828 Contact with and (suspected) exposure to other viral communicable diseases; N40.0 Benign prostatic hyperplasia without lower urinary tract symptoms; I10 Essential (primary) hypertension; F41.8 Other specified anxiety disorders; D64.9 Anemia, unspecified; Z87.891 Personal history of nicotine dependence; Z99.81 Dependence on supplemental oxygen
CPT/HCPCS: 36415; 36600; 71045; 80048; 82805; 85025; 87635; 93005; 94002; 94003; 94640; 96374; 99291; A9270; C9803; J1650; J2930; U0003

== ENCOUNTER 2021-01-03 10:34 | Outpatient (CLI) | payer OTHER, MEDICAID, SELFPAY ==
[2021-01-03 11:06] LABS: Creatine Kinase 57 U/L (55-170)
[2021-01-07 22:47] LABS: Aldolase 4.8 U/L (<=8.1)
== END 2021-01-03 10:35 | disposition home or self-care (01) ==
LOC: ANHLAB 10:40
PROVIDERS: PCP Emergency Medicine; Visit Provider Emergency Medicine
DX: R53.1 Weakness (principal)
CPT/HCPCS: 36415; 82085; 82550

== ENCOUNTER 2022-02-03 17:12 | Inpatient (IN) | payer OTHER, SELFPAY ==
--- NOTE | ~2022-02-03 | XR_ITS ---
EXAMINATION: XR chest 2V DATE: 02/08/2022 10:28 INDICATION: Hypoxia. Pleural effusion. TECHNIQUE: Frontal and lateral views of the chest were obtained. COMPARISON: Chest single view 02/05/2022, chest CT 02/04/2022 FINDINGS: There are small bilateral pleural effusions. There are lucencies in the lungs, consistent w ith emphysema. There are reticular opacities with architectural distortion in all involving all lung zones bilaterally. There are airspace opacities in right middle lower lung zones and at left lung bas e. No pneumothorax or the heart size is normal. Calcified left hilar lymph nodes are consistent with old granulomatous disease. There are changes of anterior fusion procedure in cervicothoracic spine an d posterior fusion procedure in cervical spine. A right upper extremity peripherally inserted central venous catheter (PICC) is seen with tip in the superior vena cava. IMPRESSION: 1. Stable small pleural effusions, right worse than left. 2. Stable diffuse lung disease, likely emphysema with superimposed mild pulmonary edema and right-lakesha ed atelectasis versus pneumonia. Reviewed, dictated and finalized at location A. IMPRESSION: 1. Stable small pleural effusions, right worse than left. 2. Stable diffuse lung disease, likely emphysema with superimposed mild pulmona ry edema and right-sided atelectasis versus pneumonia.
--- NOTE | ~2022-02-03 | XR_ITS ---
EXAMINATION: XR chest 1V portable DATE: 02/04/2022 07:29 INDICATION: Central line placement. TECHNIQUE: A single frontal view of the chest was obtained. COMPARISON: Chest single view 04/03/2020, chest CT 04/01/2018 FINDINGS: There are lucencies in the lungs, consistent with emphysema. There is a diffuse interstitia l pattern in the lungs. There are patchy airspace opacities in all lung zones bilaterally. There are small pleural effusions. No pneumothorax. The heart size is normal. There are changes of anterior and posterior fusion procedures in the spine. A right upper extremity peripherally inserted central veno us catheter (PICC) is seen with tip in the superior vena cava. IMPRESSION: 1. PICC tip in the superior vena cava. 2. Diffuse lung disease, consistent with pulmonary edema versus pneumonia superimposed on emphysema. 3. Small pleural effusions. Reviewed, dictated and finalized at location A. IMPRESSION: 1. PICC tip in the superior vena cava. 2. Diffuse lung disease, consistent with pulmonary edema versus pneumonia super imposed on emphysema. 3. Small pleural effusions.
--- NOTE | ~2022-02-03 | XR_ITS ---
EXAMINATION: XR chest 1V portable DATE: 02/12/2022 05:50 INDICATION: Pleural effusion. TECHNIQUE: A single frontal view of the chest was obtained. COMPARISON: Chest 2 views 02/08/2022 FINDINGS: There is a small right pleural effusion. There are lucencies in the lungs, consistent with emphysema. There are airspace and interstitial opacities in all lung zones bilaterally, right worse t bailey left. No pneumothorax. The heart size is normal. A right upper extremity peripherally inserted ce ntral venous catheter (PICC) is seen with tip at the superior cavoatrial junction. There are changes of anterior fusion procedure in cervicothoracic spine. There are changes of posterior fusion procedur e in cervical spine. IMPRESSION: 1. Diffuse lung disease with worsening on the right, consistent with emphysema with superimposed pulm onary edema versus pneumonia. 2. Stable small right pleural effusion. Reviewed, dictated and finalized at location A. IMPRESSION: 1. Diffuse lung disease with worsening on the right, consistent with emphysema with superimposed pulmonary edema versus pneumonia. 2. Stable small right pleural effusion.
--- NOTE | ~2022-02-03 | XR_ITS ---
EXAMINATION: XR chest 1V portable DATE: 02/05/2022 06:04 INDICATION: Acute on chronic respiratory failure. TECHNIQUE: A single frontal view of the chest was obtained. COMPARISON: Chest single view 02/04/2022, chest CT 02/04/22 FINDINGS: There are lucencies in the lungs, consistent with emphysema. There are coarse interstitial opacities throughout the lungs bilaterally. There are airspace opacities in right midlung zone and at right lung base. There is a small right pleural effusion. No pneumothorax. The heart size is normal. A right upper extremity peripherally inserted central venous catheter (PICC) is seen with tip at the superior cavoatrial junction. There are changes of anterior and posterior fusion procedures in the s pine. IMPRESSION: 1. Stable diffuse lung disease, likely severe emphysema with superimposed pulmonary edema and right m id and lower lung zone atelectasis versus pneumonia. 3. Stable small right pleural effusion. Reviewed, dictated and finalized at location A. IMPRESSION: 1. Stable diffuse lung disease, likely severe emphysema with superimposed pulmo nary edema and right mid and lower lung zone atelectasis versus pneumonia. 3. Stable small right pleural effusion.
--- NOTE | ~2022-02-03 | US_ITS ---
EXAMINATION: US venous doppler [facility] DATE: 02/04/2022 11:15 INDICATION: Acute on chronic respiratory failure. TECHNIQUE: Grayscale ultrasound images without and with compression and Doppler ultrasound images of the bilateral lower extremity veins were obtained. COMPARISON: None. FINDINGS: The visualized portions of right common femoral vein, profunda (deep) femoral vein, femoral vein, pop liteal vein, peroneal veins, and posterior tibial veins are patent. The visualized portions of left common femoral vein, profunda femoral vein, femoral vein, popliteal v ein, peroneal veins, and posterior tibial veins are patent. IMPRESSION: 1. No deep venous thrombosis. Reviewed, dictated and finalized at location A.
--- NOTE | ~2022-02-03 | CT_ITS ---
EXAMINATION: CTA chest PE protocol DATE: 02/04/2022 08:48 INDICATION: Acute respiratory failure. TECHNIQUE: Computed tomography angiography (CTA) of the chest was performed with 100 mL Omnipaque-350 intravenous contrast timed to evaluate the pulmonary arteries. Coronal maximum intensity projection 3D-reconstructions were created by the technologist. Automated exposure control and iterative reconst ruction technique were employed. The dose-length product was 586.19 mGy-cm. COMPARISON: Chest CT 04/26/2019 FINDINGS: There is severe emphysema. There is diffuse smooth septal thickening, consistent with mild pulmonary edema. There are moderate-sized right and small left pleural effusions. There is mucous plu gging in right lower lobe. There are airspace opacities in right lower lobe. There is an 8 mm nodule in right upper lobe, stable from 04/26/2019, likely benign. There is bilateral hilar and mediastinal lymphadenopathy. For example, a right hilar node measures 2.3 x 1.8 cm. Calcified left hilar lymph no wilber are consistent with old granulomatous disease. The heart size is normal. There are coronary arter y calcifications. No pericardial effusion. There is no pulmonary embolus. There is mild thoracic spon dylosis. There are changes of anterior fusion procedure in cervicothoracic spine and posterior fusion procedure in cervical spine. A right upper extremity peripherally inserted central venous catheter ( PICC) is seen with tip in the superior vena cava. IMPRESSION: 1. No pulmonary embolus. Sensitivity and specificity are moderately decreased by motion artifact. 2. Severe emphysema. 3. Mild pulmonary edema. 4. Mucous plugging in right lower lobe with right lower lobe airspace opacities, consistent with atel ectasis versus pneumonia. 5. Moderate-sized right and small left pleural effusions. 6. Worsened mild mediastinal and bilateral hilar lymphadenopathy, likely reactive. Reviewed, dictated and finalized at location A. IMPRESSION: 1. No pulmonary embolus. Sensitivity and specificity are moderately decreased b y motion artifact. 2. Severe emphysema. 3. Mild pulmonary edema. 4. Mucous plugging in right lower lobe with right lower lobe airspace opacities , consistent with atelectasis versus pneumonia. 5. Moderate-sized right and small left pleural effusions. 6. Worsened mild mediastinal and bilateral hilar lymphadenopathy, likely reacti ve.
[2022-02-03 16:00] VITALS: BP 122/63; PULSE 95; RESP 13; O2SAT 95
[2022-02-03 16:15] VITALS: BP 128/58; PULSE 95; RESP 17; O2SAT 92
--- NOTE | 2022-02-03 16:30 | ADMGEN ---
This patient, Angus Stovall, was admitted to Intensive Care Unit-5. Patient/family oriented to hospital policies and general routines including ID bracelet, bed and alarms, visiting hours, pain management, procedures, bathroom and other care routines, personal items, smoking policy, room service/diet, and visiting hours. Information on how to activate the Rapid Response Team has been discussed. Patient/Family are encouraged to report perceived risks to care and to ask questions if they do not understand what they are told or what they should do.
[2022-02-03 17:25] VITALS: O2SAT 96
[2022-02-03 17:34] LABS: Alveolar/Arterial O2 Gradient 119.8 mmHg; Base Excess ABG 11.5 mEq/l (+/-2.0); Carboxyhemoglobin 0.3 % THb (0-2.0); Fractional Inspired Oxygen 40 %; HCO3 ABG 38.6 mEq/l (22.0-26.0); Methemoglobin ABG 0.3 %THb (0-1.5); Oxygen Content ABG 12.5 %vol (16.0-22.0); Oxygen Saturation ABG 96.1 % (95.0-100.0); Oxyhemoglobin 94.8 % THb (90.0-100.0); PO2 ABG 87.7 mmHg (80.0-100.0); PO2 FiO2 Ratio Arterial Blood 2.19 %; Reduced Hemoglobin 4.6 %THb (0-5.0); Total Hemoglobin 9.3 g/dL (12.0-18.0); pH ABG 7.374 (7.350-7.450)
[2022-02-03 17:35] LABS: Device HIGH FLOW NASAL CANN; Modified Allen's Test Pass; PCO2 ABG 67.6 mmHg (35.0-45.0); Site Drawn RIGHT RADIAL
[2022-02-03 18:00] VITALS: BP 103/65; PULSE 90; PULSE 94; RESP 17; TEMP 37; O2SAT 91
[2022-02-03 18:28] VITALS: BMI 23.5
[2022-02-03 18:56] LABS: Basophils Percent Auto 0.4 % (0.2-1.2); Eosinophils Percent Auto 0.5 % (0-4.4); Hemoglobin 8.2 g/dL (14.0-18.0); Immature Granulocyte Absolute 0.02 K/mm3 (0.00-0.031); Immature Granulocyte Percent A 0.3 % (0-0.5); Lymphocytes Absolute Auto 0.69 K/mm3 (0.9-3.2); Mean Corpuscular HGB Conc 31.5 g/dl (32-36); Mean Corpuscular Hemoglobin 29.3 pg (26-34); Mean Corpuscular Volume 92.9 fl (80-100); Mean Platelet Volume 7.8 fl (7.4-10.4); Monocytes Absolute Auto 0.6 K/mm3 (0.1-0.6); Monocytes Percent Auto 7.3 % (2.6-8.5); Neutrophils Absolute Auto 6.4 K/mm3 (1.3-6.7); Neutrophils Percent Auto 82.5 % (45.5-73.1); Platelet Count Result 220 k/mm3 (150-375); White Blood Count 7.7 K/mm3 (4.5-10.0)
[2022-02-03 19:07] LABS: Lactic Acid Reflex 1.4 mmol/L (0.7-2.0)
[2022-02-03 19:16] LABS: NT Pro B Type Natriuretic Pept 1570 pg/mL (5-100)
[2022-02-03 19:23] LABS: Alanine Aminotransferase 12 U/L (6-50); Albumin Level 3.7 g/dL (3.5-5.1); Alkaline Phosphatase 52 U/L (38-126); Aspartate Amino Transferase 20 U/L (17-59); Bilirubin,Total 0.3 mg/dL (0.2-1.3); Blood Urea Nitrogen 21 mg/dL (9-20); Calcium 8.9 mg/dL (8.4-10.2); Carbon Dioxide > 40 mmol/L (22-30); Chloride 81 mmol/L (98-107); Estimated CRCL calculation 110 ml/min; Estimated Glomerular Filt Rate > 60; Glucose 141 mg/dL (65-110); Magnesium 2.1 mg/dL (1.6-2.3); Potassium 3.6 mmol/L (3.4-5.0); Sodium 131 mmol/L (137-145)
--- NOTE | 2022-02-03 19:30 | PM.IMHP ---
H&P: HPI History of Present Illness Date/Time: 02/03/22 19:30 Chief Complaint: Acute on chronic respiratory failure, hypotension, congestive heart failure. Narrative: This is a 58-year-old male with chronic respiratory failure on 2.5 L nasal cannula, chronic obstructive pulmonary disease, chronic interstitial lung disease, hypertension, peripheral vascular disease, and several other other comorbidities who is being directly admitted to the ICU from [facility] in [place] for further treatment and evaluation of acute on chronic respiratory failure, congestive heart failure, and hypotension. He was hospitalized at [facility] earlier this month where he was found to have a loculated pleural effusion status post chest tube drainage. It is my understanding that his cultures were positive for MRSA and he is currently on Zyvox. He was discharged back to his care center where he has been for less than a week before presenting via EMS to [facility] ER yesterday morning for evaluation of shortness of breath which began the night before. It sounds as though he was in respiratory distress on arrival and he was started on BiPAP due to hypercarbia and hypoxia. He was also admitted for diuresis suspected CHF exacerbation. Troponins were mildly elevated but have since normalized however he was seen by Cardiology and they recommend a stress test, either as an inpatient or outpatient. Echocardiogram done just couple of weeks ago showed an EF of 65 to 70% and grade 1 diastolic dysfunction with moderate pulmonary hypertension. He was admitted to telemetry and was given IV Lasix 40 mg. Last evening his vital signs were stable and he received his usual medications at bedtime including carvedilol and amlodipine. This morning he was hypotensive and he was taken off BiPAP though his blood pressures remained in the 70s systolic. He was given a 0.5 L fluid bolus and some albumin with not much improvement. A PICC line has since been inserted and he was started on Levophed at 3 mics. Due to change in status transfer was initiated to a higher level of care and he was excepted at [facility] in [place] ([facility] was full) however patient did not want to go to [place] and he requested transfer to [facility]. On arrival to ICU, he was on 5 L nasal cannula with stable SpO2. Blood pressure was in the 150 systolic and he has since been weaned off of the Levophed. He seems to be resting comfortably at the time my evaluation and he does not have any significant complaints. He continues to have a bit of a cough though it is not terribly productive. He does not feel any more short of breath now than he does at baseline. He has not had a fever. He denies chest pain, pleuritic pain, and sensations of racing heart. Appetite has been okay. No nausea, vomiting, or diarrhea. Review of Systems Review of Systems: Twelve systems were reviewed. He has been in a wheelchair for several years since cervical spine surgery for herniated disc. He is followed by a neuro musculoskeletal neurologist at [facility]. He transfers from bed to wheelchair with a sit to stand though he has a slide board they apparently do not let him use and at his care center. He denies bowel and bladder incontinence. He actively participates that physical therapy at [facility] as an outpatient. His goal is to return home. Appetite has been okay. Except as documented, all other systems were reviewed and are negative. [facility] Past Medical History Medical History (Updated 02/03/22 @ 23:17 by Rosa Maria Saldana PA-C) Anxiety Benign prostatic hyperplasia Bilateral carotid artery stenosis Chronic anemia Chronic interstitial lung disease Chronic lower back pain Chronic myelopathy Chronic obstructive pulmonary disease Chronic respiratory failure with hypoxia and hypercapnia On 2.5 L nasal cannula. Depression Emphysema of lung Generalized weakness Heart failure with preserved ejection fraction Ech
[2022-02-03 20:00] VITALS: BP 109/53; PULSE 85; PULSE 94; RESP 18; TEMP 36.8; O2SAT 93
[2022-02-03 22:00] VITALS: BP 121/50; PULSE 88; RESP 20; O2SAT 98
[2022-02-04] VITALS (104 sets, daily range): BP systolic 91–149; BP diastolic 44–68; PULSE 70–98; RESP 13–25; TEMP 36.4–36.7; O2SAT 85–100
[2022-02-04] MEDS: SODIUM CHLORIDE 0.9% IV 1,000 ML 80 ML IV CONT (00:02)
[2022-02-04] MEDS: TAMSULOSIN HCL 0.4 MG CAPSULE PO ×2 (00:03→20:25)
[2022-02-04] MEDS: CENTRAL LINE FLUSH 10 ML IV PUSH ×5 (00:03→16:43)
[2022-02-04] MEDS: LATANOPROST 0.005% OP SOLN 2.5 ML BTL 1 DROP EACH EYE ×2 (00:03→20:25)
[2022-02-04] MEDS: LINEZOLID 600 MG TABLET PO ×3 (00:03→20:26)
[2022-02-04] MEDS: ATORVASTATIN 10 MG TABLET PO ×2 (00:03→20:26)
[2022-02-04] MEDS: GABAPENTIN 100 MG CAPSULE 200 MG PO ×4 (00:04→16:42)
[2022-02-04] MEDS: IPRATROPIUM BR 0.02% INH SOLN 0.5 MG/2.5 ML VIAL INHALATION ×4 (02:37→21:16)
[2022-02-04] MEDS: ALBUTEROL SULFATE NEB 2.5 MG/3 ML INH INHALATION ×4 (02:38→21:17)
[2022-02-04 05:52] LABS: Hematocrit 24.5 % (42.0-52.0); Hemoglobin 7.6 g/dL (14.0-18.0); Mean Corpuscular Hemoglobin 29.3 pg (26-34); Mean Corpuscular Volume 94.6 fl (80-100); Mean Platelet Volume 8.1 fl (7.4-10.4); Platelet Count Result 215 k/mm3 (150-375); Red Blood Count 2.59 M/mm3 (4.6-6.20); Red Cell Distribution Width 13.1 % (11.5-14.5); White Blood Count 6.5 K/mm3 (4.5-10.0)
[2022-02-04 06:11] LABS: Procalcitonin 0.2 ng/mL
[2022-02-04 06:18] LABS: Alanine Aminotransferase 8 U/L (6-50); Albumin Level 3.1 g/dL (3.5-5.1); Alkaline Phosphatase 53 U/L (38-126); Aspartate Amino Transferase 25 U/L (17-59); Bilirubin,Total 0.2 mg/dL (0.2-1.3); Blood Urea Nitrogen 17 mg/dL (9-20); CRP 3.7 mg/dL (<1.0); Calcium 8.4 mg/dL (8.4-10.2); Carbon Dioxide > 40 mmol/L (22-30); Chloride 84 mmol/L (98-107); Estimated CRCL calculation 110 ml/min; Estimated Glomerular Filt Rate > 60; Glucose 115 mg/dL (65-110); Potassium 3.8 mmol/L (3.4-5.0); Sodium 131 mmol/L (137-145)
[2022-02-04] MEDS: ROFLUMILAST 500 MCG TABLET PO (08:11)
[2022-02-04] MEDS: ASPIRIN 81 MG ENTERIC TABLET PO (08:11)
[2022-02-04] MEDS: buPROPion HCL XL (24 HR) 150 MG TABCR PO ×2 (08:11→08:12)
[2022-02-04] MEDS: PANTOPRAZOLE 40 MG TABLET PO ×2 (08:11→20:26)
[2022-02-04] MEDS: ENOXAPARIN 40 MG/0.4 ML SYRINGE SUB-Q (08:12)
[2022-02-04] MEDS: MULTIVITAMINS THERAPEUTIC TAB (*BKC) 1 TABLET PO (08:13)
--- NOTE | 2022-02-04 08:31 | WPDCNINT ---
Assessment and Plan Assessment and plan (1) Acute on chronic respiratory failure with hypoxia and hypercapnia: Code(s): J96.21 - Acute and chronic respiratory failure with hypoxia; J96.22 - Acute and chronic respiratory failure with hypercapnia Status: Acute Assessment and Plan: Acute on chronic respiratory failure likely secondary to COPD exacerbation, interstitial lung disease, right-sided pleural effusion, possible pneumonia (less likely as procalcitonin 0.2) -patient was recently at [facility] where he was admitted for respiratory distress and was found to have a loculated right pleural effusion status post chest tube placement, patient was started on Zyvox for possible MRSA infection which is being continued -patient is normally on 2.5 L oxygen at home, currently at 3 L nasal cannula here. Not requiring BiPAP -continue bronchodilators -will add antitussive -will obtain CTA to evaluate lung parenchyma (2) Hypotension: Code(s): I95.9 - Hypotension, unspecified Status: Acute Assessment and Plan: Patient also presented with hypotension, PICC line was inserted at the outside hospital and was on Levophed on 3 mcg/min -upon arrival to [facility] ICU patient's systolic blood pressures were in the 150s, Levophed was discontinued -currently blood pressures have been stable -will hold antihypertensives (3) Chronic anemia: Code(s): D64.9 - Anemia, unspecified Status: Acute Assessment and Plan: Patient with history of chronic anemia, -currently hemoglobin is 7.6 -will obtain stool for Hemoccult -check iron panel -check vitamin B12 and folic acid levels -bilirubin LFTs are within normal limits I do suspect any hemolytic anemia at this time -will transfuse if hemoglobin less than 7.0 (4) Loculated pleural effusion: Code(s): J90 - Pleural effusion, not elsewhere classified Status: Acute Assessment and Plan: Patient with loculated pleural effusion status post chest tube at [facility] -02/04 chest x-ray showed diffuse interstitial pattern in the lungs consistent pulmonary edema versus pneumonia superimposed on emphysema, small pleural effusions, PICC line tip in the superior vena cava -await CT chest (5) Chronic interstitial lung disease: Code(s): J84.9 - Interstitial pulmonary disease, unspecified Status: Acute Assessment and Plan: Patient has a history of chronic interstitial lung disease -pulmonology has been consulted (6) Chronic obstructive pulmonary disease: Code(s): J44.9 - Chronic obstructive pulmonary disease, unspecified Status: Acute Assessment and Plan: Continue bronchodilators, supplemental oxygen, BiPAP if needed (7) Pneumonia: Code(s): J18.9 - Pneumonia, unspecified organism Status: Acute Assessment and Plan: Patient is on Zyvox Plan DVT prophylaxis: Stress ulcer prophylaxis: Protonix Nutrition: Heart healthy diet Code Status: Full code Critical Care Time Spent: 45 minutes Due to a high probability of clinically significant, life threatening deterioration, the patient required my highest level of preparedness to intervene emergently and I personally spent this critical care time directly and personally managing the patient. This critical care time included obtaining a history; examining the patient; pulse oximetry; ordering and review of studies; arranging urgent treatment with development of a management plan; evaluation of patient's response to treatment; frequent reassessment; and discussions with other providers. It was exclusive of separately billable procedures and treating other patients and teaching time. Please see Assessment and Plan section and the rest of the note for further information on patient assessment and treatment [facility] Consult Note Consult date: 02/04/22 Reason for consult: Acute on chronic respiratory failure, hypotensi
[2022-02-04 09:24] LABS: Folic Acid 5.4 ng/mL (2.76->20)
[2022-02-04 09:31] LABS: Iron 26 ug/dL (49-181)
[2022-02-04 09:40] LABS: Percent Iron Saturation 12 % (20-50)
--- NOTE | 2022-02-04 11:37 | PM.CNPUL ---
Assessment and Plan Assessment and plan (1) Acute on chronic respiratory failure with hypoxia and hypercapnia: Code(s): J96.21 - Acute and chronic respiratory failure with hypoxia; J96.22 - Acute and chronic respiratory failure with hypercapnia Status: Acute Assessment and Plan: this 66-year-old man has had advanced COPD with chronic hypoxemic hypercapnic respiratory failure, was hospitalized recently with a right empyema and has been on Zyvox for MRSA positive culture following thoracentesis at another hospital, presented with new onset of shortness of breath. Diagnostic studies have shown, in addition to right loculated pleural effusion for which he is on Zyvox, partial right lower lobe collapse which is probably the cause of worsening dyspnea. There is also evidence of mild pulmonary edema on the chest CT, with a smaller left pleural effusion. Arterial blood gases show compensated chronic respiratory acidosis. The patient does not appear to be in severe respiratory distress while he is on just supplemental oxygen via nasal cannula. It is likely that the right lower lobe atelectasis is related to mucous plugging as the patient has had cough with dark sputum production. Plan: continue with current antibiotic regimen, obtain sputum culture. will continue with aggressive pulmonary toilet with nebulized short-acting bronchodilators q.4 hours supplemented with nebulized Mucomyst 3 times daily and also physical therapy to right chest. we will consider therapeutic bronchoscopy if right lower lobe atelectasis persists despite pulmonary toilet. Also consider gentle diuresis if tolerated. Case was discussed with the supervisor livestock yard. (2) Loculated pleural effusion: Code(s): J90 - Pleural effusion, not elsewhere classified Status: Acute (3) Heart failure with preserved ejection fraction: Code(s): I50.30 - Unspecified diastolic (congestive) heart failure Status: Acute (4) Chronic obstructive pulmonary disease: Code(s): J44.9 - Chronic obstructive pulmonary disease, unspecified Status: Acute (5) History of pleural empyema: Code(s): Z87.09 - Personal history of other diseases of the respiratory system Status: Acute (6) Pulmonary atelectasis: Code(s): J98.11 - Atelectasis Status: Acute History of Present Illness History of Present Illness Consult date: 02/04/22 Chief complaint: Acute/Chronic Hypercarbic/Hypoxic Resp Failure/CHF Narrative: This 66-year-old man was transferred to [facility] from [facility] with hypercapnic respiratory failure and new onset shortness of breath. The patient has advanced COPD with hypoxemic /hypercapnic respiratory failure chronically on supplemental oxygen 2.5 liters/minute. The patient was in his usual state of health until approximately 3 weeks ago when he presented to [facility] with shortness of breath. He had no fever chills hemoptysis orchest pain. He was found to have right pleural effusion for which he underwent right chest tube drainage with approximately 1 L of fluid removed. Reportedly the patient was found to have empyema as he grew MRSA and has been on Zyvox. Patient was hospitalized for approximately 9 days at [facility] and was then discharged home. Approximately a week later, he started having shortness of breath with no fever chills hemoptysis or chest pain. Patient was evaluated at [facility] where he was found to be hypoxemic and hypercapnic and was treated with BiPAP support. Subsequently the patient was transferred to our ICU were he is currently on just supplemental oxygen. Patient has some shortness of breath but no other respiratory symptoms such as chest pain fever or chills. He has had cough productive of dark yellow phlegm. Arterial blood gases showed compensated chronic respiratory acidosis. Chest CT showed severe centrilobular emphysema bilaterally, right locula
[2022-02-04] MEDS: methylPREDNISolone SOD SUCC 40 MG VIAL IV PUSH ×2 (12:03→17:23)
[2022-02-04] MEDS: FUROSEMIDE INJ 40 MG/4 ML VIAL IV PUSH (13:22)
--- NOTE | 2022-02-04 13:37 | PHAR ---
HOME MEDS VERIFIED Brinzolamide 1% AND Brimonidine %0.2 % USE EACH: 1 DROP BOTH EYES TID
[2022-02-04] MEDS: ACETYLCYSTEINE 20% INHAL SOLN 800 MG/4 ML VIAL 200 MG INHALATION ×2 (15:05→21:15)
[2022-02-05] VITALS (26 sets, daily range): BP systolic 109–166; BP diastolic 46–65; PULSE 66–104; RESP 15–22; TEMP 36.3–36.9; O2SAT 88–100
[2022-02-05] MEDS: CENTRAL LINE FLUSH 10 ML IV PUSH ×4 (00:05→20:08)
[2022-02-05] MEDS: methylPREDNISolone SOD SUCC 40 MG VIAL IV PUSH ×5 (00:29→23:14)
[2022-02-05] MEDS: MELATONIN 3 MG TABLET 9 MG PO ×2 (02:24→22:48)
[2022-02-05] MEDS: ALBUTEROL SULFATE NEB 2.5 MG/3 ML INH INHALATION ×5 (04:56→20:54)
[2022-02-05] MEDS: IPRATROPIUM BR 0.02% INH SOLN 0.5 MG/2.5 ML VIAL INHALATION ×5 (04:56→20:54)
[2022-02-05] MEDS: ACETYLCYSTEINE 20% INHAL SOLN 800 MG/4 ML VIAL 200 MG INHALATION ×4 (04:56→16:49)
[2022-02-05 04:57] LABS: Hematocrit 26.2 % (42.0-52.0); Hemoglobin 8.2 g/dL (14.0-18.0); Immature Granulocyte Absolute 0.02 K/mm3 (0.00-0.031); Immature Granulocyte Percent A 0.5 % (0-0.5); Lymphocytes Absolute Auto 0.23 K/mm3 (0.9-3.2); Lymphocytes Percent Auto 5.4 % (18.3-44.2); Mean Corpuscular HGB Conc 31.3 g/dl (32-36); Mean Corpuscular Hemoglobin 29.1 pg (26-34); Mean Corpuscular Volume 92.9 fl (80-100); Monocytes Percent Auto 0.7 % (2.6-8.5); Neutrophils Percent Auto 93.4 % (45.5-73.1); Platelet Count Result 238 k/mm3 (150-375); Red Blood Count 2.82 M/mm3 (4.6-6.20); Red Cell Distribution Width 12.8 % (11.5-14.5); White Blood Count 4.3 K/mm3 (4.5-10.0)
[2022-02-05 05:09] LABS: Alanine Aminotransferase 12 U/L (6-50); Albumin Level 3.4 g/dL (3.5-5.1); Alkaline Phosphatase 56 U/L (38-126); Aspartate Amino Transferase 18 U/L (17-59); Bilirubin,Total 0.2 mg/dL (0.2-1.3); Blood Urea Nitrogen 15 mg/dL (9-20); Calcium 8.5 mg/dL (8.4-10.2); Carbon Dioxide > 40 mmol/L (22-30); Chloride 81 mmol/L (98-107); Estimated CRCL calculation 110 ml/min; Estimated Glomerular Filt Rate > 60; Glucose 211 mg/dL (65-110); Lactic Acid Reflex 1.7 mmol/L (0.7-2.0); Magnesium 1.8 mg/dL (1.6-2.3); Phosphorus 2.5 mg/dL (2.5-4.5); Sodium 131 mmol/L (137-145)
[2022-02-05] MEDS: ENOXAPARIN 40 MG/0.4 ML SYRINGE SUB-Q (09:05)
[2022-02-05] MEDS: FUROSEMIDE INJ 40 MG/4 ML VIAL 20 MG IV PUSH (09:08)
--- NOTE | 2022-02-05 09:47 | PM.PNPUL ---
Progress Note: A&P Assessment and Plan (1) Empyema of right pleural space: Code(s): J86.9 - Pyothorax without fistula Status: Acute Assessment and Plan: This 66-year-old man with a history of chronic hypoxemic hypercapnic respiratory failure related to severe emphysema chronically on supplemental oxygen has been treated for right empyema. Empyema was diagnosed at [facility] where the patient was recently hospitalized. Reportedly he grew MRSA and has been treated with Zyvox. He has no leukocytosis. On chest CT he had loculated pleural effusion with evidence of partial right lower lobe atelectasis consolidation. In addition there was a smaller left pleural effusion the patient has been treated with Zyvox, nebulized short-acting bronchodilators, nebulized mucolytic agents in an effort to increased bronchial secretions. Since yesterday bronchial secretions are significantly less but chest x-ray is essentially unchanged. I suspect the right lower lobe consolidation seen on chest CT represents lung entrapment rather than atelectasis related to bronchial secretions. Plan: Will continue with current aggressive pulmonary toilet and repeat chest x-ray and monitor arterial blood gases. Continue with DVT prophylaxis and Zyvox. He has no leukocytosis to suggest active infection. Patient will probably benefit from right decortication via VATS if he can tolerate it. I would recommend transfer to a tertiary center for thoracic consultation.The case was discussed with Dr. Sanderson, the ambulatory nurse (2) Acute on chronic respiratory failure with hypoxia and hypercapnia: Code(s): J96.21 - Acute and chronic respiratory failure with hypoxia; J96.22 - Acute and chronic respiratory failure with hypercapnia Status: Acute (3) Heart failure with preserved ejection fraction: Code(s): I50.30 - Unspecified diastolic (congestive) heart failure Status: Acute (4) Chronic obstructive pulmonary disease: Code(s): J44.9 - Chronic obstructive pulmonary disease, unspecified Status: Acute Subjective Date/time seen: 02/05/22 09:47 patient still in the intensive care unit, hemodynamically stable. Has no new respiratory symptoms. Remaining on supplemental oxygen via nasal cannula undergoing aggressive pulmonary toilet. Has no fever sputum production less than before. Chest x-ray done this a.m. essentially unchanged. on Zyvox for right empyema. Review of Systems Review of Systems: All systems reviewed & are unremarkable except as noted in HPI and below Exam Narrative: GENERAL APPEARANCE: Well developed, well nourished, alert and cooperative, who appears to be mild respiratory distress while in the semi recumbent position in his ICU bed and on supplemental oxygen SKIN: Inspection of the skin reveals no rashes, ulcerations or petechiae. HEENT: Sclerae anicteric and conjunctivae pink and moist. Extraocular movements were intact and pupils were equal, round. NECK: Supple. There was no thyroid enlargement, and no tenderness, or masses were felt. CHEST: Normal AP diameter and normal contour without any kyphoscoliosis. LUNGS: Auscultation of the lungs revealed decreased breath sounds right base posteriorly, no wheezing CARDIAC: There was a regular rate and rhythm without any murmurs, gallops, rubs. ABDOMEN: Soft and nontender with normal bowel sounds. There was no organomegaly. LYMPH NODES: No lymphadenopathy was appreciated in the neck. EXTREMITIES: No cyanosis, clubbing or edema. NEUROLOGIC: Alert and oriented x 3. Normal affect. Objective Data Vital Signs Vital Signs: Vital Signs - 24 hr 02/04/22 10:00 02/04/22 10:01 02/04/22 10:00 Temperature Pulse Rate 88 86 88 Respiratory Rate 17 20 Blood Pressure 124/54 L Pulse Oximetry 94 94 Oxygen Delivery Oxygen Flow Rate 02/04/22 12:00 02/04/22 12:00 02/04/22 10:02 Temperature Pulse Rate 75 88 Respiratory Rate 17 Blood
[2022-02-05] MEDS: MULTIVITAMINS THERAPEUTIC TAB (*BKC) 1 TABLET PO (10:16)
[2022-02-05] MEDS: carvediloL 3.125 MG TABLET PO ×2 (10:16→20:07)
[2022-02-05] MEDS: amLODIPine BESYLATE 5 MG TABLET 10 MG PO (10:16)
[2022-02-05] MEDS: GABAPENTIN 100 MG CAPSULE 200 MG PO ×3 (10:17→16:21)
[2022-02-05] MEDS: PANTOPRAZOLE 40 MG TABLET PO ×2 (10:18→20:07)
[2022-02-05] MEDS: LINEZOLID 600 MG TABLET PO ×2 (10:18→20:08)
[2022-02-05] MEDS: ROFLUMILAST 500 MCG TABLET PO (10:18)
[2022-02-05] MEDS: FLUTICASONE PROPIONATE 0.05% NA SPR 16 GM BTL (*BKC) 1 SPRAY NASAL (10:19)
--- NOTE | 2022-02-05 11:06 | WPDINTPN ---
Progress Note: A&P Assessment and Plan (1) Acute on chronic respiratory failure with hypoxia and hypercapnia: Code(s): J96.21 - Acute and chronic respiratory failure with hypoxia; J96.22 - Acute and chronic respiratory failure with hypercapnia Status: Acute Assessment and Plan: Acute on chronic respiratory failure likely secondary to COPD exacerbation, interstitial lung disease, right-sided pleural effusion, possible pneumonia (less likely as procalcitonin 0.2) -patient was recently at [facility] where he was admitted for respiratory distress and was found to have a loculated right pleural effusion status post chest tube placement, patient was started on Zyvox for possible MRSA infection which is being continued -patient is normally on 2.5 L oxygen at home, currently at 4 L nasal cannula here. Not requiring BiPAP -continue bronchodilators -cough is improving with Robitussin -tolerated diuresis on 02/04, will diurese again today -patient may require thoracic surgery for loculated moderate right-sided pleural effusion, likely require VATS procedure, -called [facility] connect Line, gave patient's details, patient is on a wait list. They will call us once bed is available CTA chest 02/04/2022 1. No pulmonary embolus. Sensitivity and specificity are moderately decreased by motion artifact. 2. Severe emphysema. 3. Mild pulmonary edema. 4. Mucous plugging in right lower lobe with right lower lobe airspace opacities, consistent with atelectasis versus pneumonia. 5. Moderate-sized right and small left pleural effusions. 6. Worsened mild mediastinal and bilateral hilar lymphadenopathy, likely reactive. (2) Hypotension: Code(s): I95.9 - Hypotension, unspecified Status: Acute Assessment and Plan: RESOLVED, currently hypertensive Patient also presented with hypotension, PICC line was inserted at the outside hospital and was on Levophed on 3 mcg/min -upon arrival to [facility] ICU patient's systolic blood pressures were in the 150s, Levophed was discontinued -currently blood pressures are slightly high, will start home amlodipine, carvedilol. Reintroduce lisinopril if blood pressures remain elevated (3) Chronic anemia: Code(s): D64.9 - Anemia, unspecified Status: Acute Assessment and Plan: Patient with history of chronic anemia, -currently hemoglobin is 8.2 (7.6 on admission) -stool for Hemoccult has been obtained and pending -iron panel reflective of anemia of chronic disease -vitamin B12 and folic acid levels are within normal limits -bilirubin LFTs are within normal limits I do suspect any hemolytic anemia at this time -will transfuse if hemoglobin less than 7.0 (4) Loculated pleural effusion: Code(s): J90 - Pleural effusion, not elsewhere classified Status: Acute Assessment and Plan: Patient with loculated pleural effusion status post chest tube at [facility] -02/04 chest x-ray showed diffuse interstitial pattern in the lungs consistent pulmonary edema versus pneumonia superimposed on emphysema, small pleural effusions, PICC line tip in the superior vena cava -CT scan shows moderate size right pleural effusion with loculation -patient likely will be transferred to a higher level of care for thoracic surgery, called [facility], he has been placed on a waiting list for medical bed -bronchodilators -Mucomyst nebulizer -chest PT (5) Chronic interstitial lung disease: Code(s): J84.9 - Interstitial pulmonary disease, unspecified Status: Acute Assessment and Plan: Patient has a history of chronic interstitial lung disease -continue steroids (6) Chronic obstructive pulmonary disease: Code(s): J44.9 - Chronic obstructive pulmonary disease, unspecified Status: Acute Assessment and Plan: Continue bronchodilators, supplemental oxygen, BiPAP if needed (7) Pneumonia: Code(s):
[2022-02-05 13:01] LABS: IFOB Positive Control Positive; Immunochemical Fecal Occult Bl Negative (N)
[2022-02-05] MEDS: lisinopriL 20 MG TABLET PO (15:32)
--- NOTE | 2022-02-05 17:28 | PC.NURSE ---
This patient, Angus Stovall, was transferred to [[id number]] on 02/05/22 at 1720. Personal belongings sent with patient. Report given to [RADHA Posey]. Appropriate documentation sent with patient.
[2022-02-05] MEDS: TAMSULOSIN HCL 0.4 MG CAPSULE PO (20:07)
[2022-02-05] MEDS: ATORVASTATIN 10 MG TABLET PO (20:07)
[2022-02-05] MEDS: LATANOPROST 0.005% OP SOLN 2.5 ML BTL 1 DROP EACH EYE (20:08)
[2022-02-05] MEDS: FLUTICASONE/SALMETEROL 45-21 MCG INHALER 1 PUFF 2 PUFF INHALATION (20:55)
[2022-02-06] VITALS (18 sets, daily range): BP systolic 110–137; BP diastolic 48–59; PULSE 75–109; RESP 17–18; TEMP 36.2–36.6; O2SAT 94–99
[2022-02-06] MEDS: ALBUTEROL SULFATE NEB 2.5 MG/3 ML INH INHALATION ×5 (02:54→20:46)
[2022-02-06] MEDS: IPRATROPIUM BR 0.02% INH SOLN 0.5 MG/2.5 ML VIAL INHALATION ×5 (02:54→20:46)
[2022-02-06] MEDS: ACETYLCYSTEINE 20% INHAL SOLN 800 MG/4 ML VIAL 200 MG INHALATION (02:54)
[2022-02-06] MEDS: CENTRAL LINE FLUSH 10 ML IV PUSH ×3 (05:23→20:10)
[2022-02-06] MEDS: methylPREDNISolone SOD SUCC 40 MG VIAL IV PUSH ×2 (05:23→12:11)
--- NOTE | 2022-02-06 08:06 | PM.IMPN ---
Progress Note: A&P Assessment and Plan (1) Acute on chronic respiratory failure with hypoxia and hypercapnia: Code(s): J96.21 - Acute and chronic respiratory failure with hypoxia; J96.22 - Acute and chronic respiratory failure with hypercapnia Status: Acute Assessment and Plan: Acute on chronic respiratory failure likely secondary to COPD exacerbation, interstitial lung disease, right-sided pleural effusion, possible pneumonia (less likely as procalcitonin 0.2) -patient was recently at [facility] where he was admitted for respiratory distress and was found to have a loculated right pleural effusion status post chest tube placement, patient was started on Zyvox for possible MRSA infection which is being continued -patient is normally on 2.5 L oxygen at home, currently at 4 L nasal cannula here. Not requiring BiPAP -continue bronchodilators -cough is improving with Robitussin -tolerated diuresis on 02/04, will diurese again today -patient may require thoracic surgery for loculated moderate right-sided pleural effusion, likely require VATS procedure, -called [facility] connect Line, gave patient's details, patient is on a wait list. They will call us once bed is available CTA chest 02/04/2022 1. No pulmonary embolus. Sensitivity and specificity are moderately decreased by motion artifact. 2. Severe emphysema. 3. Mild pulmonary edema. 4. Mucous plugging in right lower lobe with right lower lobe airspace opacities, consistent with atelectasis versus pneumonia. 5. Moderate-sized right and small left pleural effusions. 6. Worsened mild mediastinal and bilateral hilar lymphadenopathy, likely reactive. (2) Hypotension: Code(s): I95.9 - Hypotension, unspecified Status: Acute Assessment and Plan: RESOLVED, currently hypertensive Patient also presented with hypotension, PICC line was inserted at the outside hospital and was on Levophed on 3 mcg/min -upon arrival to [facility] ICU patient's systolic blood pressures were in the 150s, Levophed was discontinued -currently blood pressures are slightly high, will start home amlodipine, carvedilol. Reintroduce lisinopril if blood pressures remain elevated (3) Chronic anemia: Code(s): D64.9 - Anemia, unspecified Status: Acute Assessment and Plan: Patient with history of chronic anemia, -currently hemoglobin is 8.2 (7.6 on admission) -stool for Hemoccult has been obtained and pending -iron panel reflective of anemia of chronic disease -vitamin B12 and folic acid levels are within normal limits -bilirubin LFTs are within normal limits I do suspect any hemolytic anemia at this time -will transfuse if hemoglobin less than 7.0 (4) Loculated pleural effusion: Code(s): J90 - Pleural effusion, not elsewhere classified Status: Acute Assessment and Plan: Patient with loculated pleural effusion status post chest tube at [facility] -02/04 chest x-ray showed diffuse interstitial pattern in the lungs consistent pulmonary edema versus pneumonia superimposed on emphysema, small pleural effusions, PICC line tip in the superior vena cava -CT scan shows moderate size right pleural effusion with loculation -patient likely will be transferred to a higher level of care for thoracic surgery, called [facility], he has been placed on a waiting list for medical bed -bronchodilators -Mucomyst nebulizer -chest PT (5) Chronic interstitial lung disease: Code(s): J84.9 - Interstitial pulmonary disease, unspecified Status: Acute Assessment and Plan: Patient has a history of chronic interstitial lung disease -continue steroids (6) Chronic obstructive pulmonary disease: Code(s): J44.9 - Chronic obstructive pulmonary disease, unspecified Status: Acute Assessment and Plan: Continue bronchodilators, supplemental oxygen, BiPAP if needed (7) Pneumonia: Code(s):
[2022-02-06] MEDS: FLUTICASONE/SALMETEROL 45-21 MCG INHALER 1 PUFF 2 PUFF INHALATION ×2 (08:23→20:47)
[2022-02-06] MEDS: amLODIPine BESYLATE 5 MG TABLET 10 MG PO (09:31)
[2022-02-06] MEDS: lisinopriL 20 MG TABLET PO (09:31)
[2022-02-06] MEDS: ENOXAPARIN 40 MG/0.4 ML SYRINGE SUB-Q (09:31)
[2022-02-06] MEDS: MULTIVITAMINS THERAPEUTIC TAB (*BKC) 1 TABLET PO (09:31)
[2022-02-06] MEDS: ASPIRIN 81 MG ENTERIC TABLET PO (09:33)
[2022-02-06] MEDS: PANTOPRAZOLE 40 MG TABLET PO ×2 (09:33→20:10)
[2022-02-06] MEDS: GABAPENTIN 100 MG CAPSULE 200 MG PO ×3 (09:33→16:13)
[2022-02-06] MEDS: ROFLUMILAST 500 MCG TABLET PO (09:34)
[2022-02-06] MEDS: carvediloL 3.125 MG TABLET PO ×2 (09:34→20:06)
[2022-02-06] MEDS: LINEZOLID 600 MG TABLET PO ×2 (09:34→20:09)
--- NOTE | 2022-02-06 12:25 | PM.PNPUL ---
Progress Note: A&P Assessment and Plan (1) Empyema of right pleural space: Code(s): J86.9 - Pyothorax without fistula Status: Acute Assessment and Plan: This 66-year-old man with a history of chronic hypoxemic hypercapnic respiratory failure related to severe emphysema chronically on supplemental oxygen has been treated for right empyema. [facility]ema [facility]. Reportedly he grew MRSA and has been treated with Zyvox. He has no leukocytosis. On chest CT he had loculated pleural effusion with evidence of partial right lower lobe atelectasis/consolidation. In addition there was a smaller left pleural effusion. the patient has been treated with Zyvox, nebulized short-acting bronchodilators, nebulized mucolytic agents in an effort to mobilize bronchial secretions. Since yesterday bronchial secretions are significantly less but chest x-ray is essentially unchanged. I suspect the right lower lobe consolidation seen on chest CT represents lung entrapment rather than atelectasis related to bronchial secretions. Plan: Nebulized Mucomyst was discontinued. IV steroids were also discontinued. Continue with short-acting bronchodilators, DVT prophylaxis and Zyvox. He has no leukocytosis to suggest active infection. Patient will probably benefit from right decortication via VATS if he can tolerate it. patient is waiting for transfer to [facility]. (2) Acute on chronic respiratory failure with hypoxia and hypercapnia: Code(s): J96.21 - Acute and chronic respiratory failure with hypoxia; J96.22 - Acute and chronic respiratory failure with hypercapnia Status: Acute (3) Heart failure with preserved ejection fraction: Code(s): I50.30 - Unspecified diastolic (congestive) heart failure Status: Acute (4) Chronic obstructive pulmonary disease: Code(s): J44.9 - Chronic obstructive pulmonary disease, unspecified Status: Acute Subjective Date/time seen: 02/06/22 12:25 Patient has no new respiratory symptoms. Sputum production has significantly decreased over the last 36 hours. He remains on supplemental oxygen at 4 liters/minute. He continues to complain of shortness of breath. He has no fever chills or wheezing. Review of Systems Review of Systems: All systems reviewed & are unremarkable except as noted in HPI and below Exam Narrative: GENERAL APPEARANCE: Well developed, well nourished, alert and cooperative, who appears to be mild respiratory distress while in the semi recumbent position in his ICU bed and on supplemental oxygen SKIN: Inspection of the skin reveals no rashes, ulcerations or petechiae. HEENT: Sclerae anicteric and conjunctivae pink and moist. Extraocular movements were intact and pupils were equal, round. NECK: Supple. There was no thyroid enlargement, and no tenderness, or masses were felt. CHEST: Normal AP diameter and normal contour without any kyphoscoliosis. LUNGS: Auscultation of the lungs revealed decreased breath sounds right base posteriorly, no wheezing CARDIAC: There was a regular rate and rhythm without any murmurs, gallops, rubs. ABDOMEN: Soft and nontender with normal bowel sounds. There was no organomegaly. LYMPH NODES: No lymphadenopathy was appreciated in the neck. EXTREMITIES: No cyanosis, clubbing or edema. NEUROLOGIC: Alert and oriented x 3. Normal affect. Objective Data Vital Signs Vital Signs: Vital Signs - 24 hr 02/05/22 16:00 02/05/22 16:50 02/05/22 17:10 Temperature 36.9 C Pulse Rate 66 76 73 Respiratory Rate 20 19 22 H Blood Pressure 130/64 Pulse Oximetry 97 Oxygen Delivery Oxygen Flow Rate 02/05/22 19:20 02/05/22 20:07 02/05/22 20:00 Temperature 36.6 C Pulse Rate 79 78 Respiratory Rate 18 Blood Pressure 109/46 L Pulse Oximetry 100 100 Oxygen Delivery Nasal Cannula Oxygen Flow Rate 4 02/05/22 20:50 02/05/22
[2022-02-06] MEDS: ONDANSETRON INJ 4 MG/2 ML VIAL IV PUSH (18:21)
[2022-02-06] MEDS: ATORVASTATIN 10 MG TABLET PO (20:08)
[2022-02-06] MEDS: LATANOPROST 0.005% OP SOLN 2.5 ML BTL 1 DROP EACH EYE (20:09)
[2022-02-06] MEDS: TAMSULOSIN HCL 0.4 MG CAPSULE PO (20:10)
[2022-02-06] MEDS: MELATONIN 3 MG TABLET 9 MG PO (21:58)
[2022-02-07] VITALS (18 sets, daily range): BP systolic 70–132; BP diastolic 30–52; PULSE 73–97; RESP 15–18; TEMP 36.6–36.8; O2SAT 90–100
[2022-02-07] MEDS: ALBUTEROL SULFATE NEB 2.5 MG/3 ML INH INHALATION ×6 (00:05→20:20)
[2022-02-07] MEDS: IPRATROPIUM BR 0.02% INH SOLN 0.5 MG/2.5 ML VIAL INHALATION ×5 (00:05→20:20)
[2022-02-07] MEDS: CENTRAL LINE FLUSH 10 ML IV PUSH ×3 (05:17→21:04)
--- NOTE | 2022-02-07 07:58 | PM.IMPN ---
Progress Note: A&P Assessment and Plan (1) Acute on chronic respiratory failure with hypoxia and hypercapnia: Code(s): J96.21 - Acute and chronic respiratory failure with hypoxia; J96.22 - Acute and chronic respiratory failure with hypercapnia Status: Acute Assessment and Plan: Acute on chronic respiratory failure likely secondary to COPD exacerbation, interstitial lung disease, right-sided pleural effusion, possible pneumonia (less likely as procalcitonin 0.2) -patient was recently at [facility] where he was admitted for respiratory distress and was found to have a loculated right pleural effusion status post chest tube placement, patient was started on Zyvox for possible MRSA infection which is being continued -patient is normally on 2.5 L oxygen at home, currently at 4 L nasal cannula here. Not requiring BiPAP -continue bronchodilators -cough is improving with Robitussin -tolerated diuresis on 02/04, will diurese again today -patient may require thoracic surgery for loculated moderate right-sided pleural effusion, likely require VATS procedure, -called [facility] connect Line, gave patient's details, patient is on a wait list. They will call us once bed is available (2) Chronic anemia: Code(s): D64.9 - Anemia, unspecified Status: Acute Assessment and Plan: Patient with history of chronic anemia, -currently hemoglobin is 8.2 (7.6 on admission) -stool for Hemoccult has been obtained and pending -iron panel reflective of anemia of chronic disease -vitamin B12 and folic acid levels are within normal limits -bilirubin LFTs are within normal limits I do suspect any hemolytic anemia at this time -will transfuse if hemoglobin less than 7.0 (3) Loculated pleural effusion: Code(s): J90 - Pleural effusion, not elsewhere classified Status: Acute Assessment and Plan: Patient with loculated pleural effusion status post chest tube at [facility] -02/04 chest x-ray showed diffuse interstitial pattern in the lungs consistent pulmonary edema versus pneumonia superimposed on emphysema, small pleural effusions, PICC line tip in the superior vena cava -CT scan shows moderate size right pleural effusion with loculation -patient likely will be transferred to a higher level of care for thoracic surgery, called [facility], he has been placed on a waiting list for medical bed -bronchodilators -Mucomyst nebulizer -chest PT (4) Chronic interstitial lung disease: Code(s): J84.9 - Interstitial pulmonary disease, unspecified Status: Acute Assessment and Plan: Patient has a history of chronic interstitial lung disease -continue steroids (5) Chronic obstructive pulmonary disease: Code(s): J44.9 - Chronic obstructive pulmonary disease, unspecified Status: Acute Assessment and Plan: Continue bronchodilators, supplemental oxygen, BiPAP if needed (6) Pneumonia: Code(s): J18.9 - Pneumonia, unspecified organism Status: Acute Assessment and Plan: Patient is on Zyvox Plan DVT prophylaxis: Lovenox Stress ulcer prophylaxis: Protonix Nutrition: Heart healthy diet 02/05/2022 Call [facility], patient is on a waiting list for admission to the medical floor, they will call back with the bed once available Code Status: Full code Subjective Date/time seen: 02/07/22 07:58 Interval history: Patient has no complaints. States he feels about the same as yesterday. No overnight events noted. No chest pain or shortness of breath. No nausea, vomiting or diarrhea. No fevers or chills. Review of Systems Review of Systems: All systems reviewed & are unremarkable except as noted in HPI and below Exam Narrative: General: No acute distress, alert and oriented per baseline HEENT: Atraumatic, normocephalic, mucous membranes moist CV: Regular rate and rhythm, S1, S2 Lungs: Clear to auscul
[2022-02-07] MEDS: MULTIVITAMINS THERAPEUTIC TAB (*BKC) 1 TABLET PO (08:22)
[2022-02-07] MEDS: carvediloL 3.125 MG TABLET PO (08:22)
[2022-02-07] MEDS: ROFLUMILAST 500 MCG TABLET PO (08:22)
[2022-02-07] MEDS: PANTOPRAZOLE 40 MG TABLET PO ×2 (08:22→21:00)
[2022-02-07] MEDS: LINEZOLID 600 MG TABLET PO ×2 (08:22→20:59)
[2022-02-07] MEDS: amLODIPine BESYLATE 5 MG TABLET 10 MG PO (08:23)
[2022-02-07] MEDS: lisinopriL 20 MG TABLET PO (08:23)
[2022-02-07] MEDS: GABAPENTIN 100 MG CAPSULE 200 MG PO ×3 (08:24→17:56)
[2022-02-07] MEDS: ENOXAPARIN 40 MG/0.4 ML SYRINGE SUB-Q (08:24)
[2022-02-07] MEDS: buPROPion HCL XL (24 HR) 150 MG TABCR PO (08:24)
[2022-02-07] MEDS: FLUTICASONE/SALMETEROL 45-21 MCG INHALER 1 PUFF 2 PUFF INHALATION ×2 (08:55→20:20)
--- NOTE | 2022-02-07 11:00 | PC.NURSE ---
Went through Jesi Brown' assessment charting and agree with findings.
--- NOTE | 2022-02-07 20:46 | PM.EVENT ---
Event Note Event Note Event Note: 02/07/2022 at 8:45 p.m. Nursing staff called to notify me that the patient had sudden onset of hypotension blood pressures are in the 70 systolic. Patient is afebrile. The patient's heart rate has been ranging between 70s up to the low 90s since admission. He has not had any increased tachycardia. He had initially been hypotensive on admission to the hospital but had been weaned off pressors less than 12 hours after admission and was only on low-dose Levophed at the outside facility. Patient's oxygen requirement has ranged from 3.5 L up to 8 L since admission. He is currently at 5 L nasal cannula. His home O2 requirement is 2.5 L. he does have grade 2 diastolic dysfunction. Patient is between 1 and 1.5 L fluid positive since admission. He has had adequate urine output. Labs from the 1st were reviewed. Patient is on antibiotic therapy with Zyvox. I discussed the patient's case with nursing staff and daytime provider patient is awaiting a bed at [facility] for evaluation by Cardiothoracic surgery. The patient has a loculated pleural effusion in concern for infection at site of her recent chest tube placement. At this time will order 1 L fluid bolus over 2 hours but will monitor the patient's status closely depending on response to bolus. The patient may require transfer back to the ICU for pressor therapy. Will hold patient's evening Coreg. Stat CBC, CMP, CRP, lactic acid and blood cultures have been ordered. Will check repeat chest x-ray in a.m. or sooner if the patient condition deteriorates further.
[2022-02-07] MEDS: SODIUM CHLORIDE 0.9% IV 1,000 ML 500 ML IV CONT (20:55)
[2022-02-07] MEDS: ATORVASTATIN 10 MG TABLET PO (20:59)
[2022-02-07] MEDS: LATANOPROST 0.005% OP SOLN 2.5 ML BTL 1 DROP EACH EYE (20:59)
[2022-02-07] MEDS: TAMSULOSIN HCL 0.4 MG CAPSULE PO (21:01)
[2022-02-07 21:26] LABS: Basophils Percent Auto 0.1 % (0.2-1.2); Hematocrit 25.6 % (42.0-52.0); Hemoglobin 7.8 g/dL (14.0-18.0); Immature Granulocyte Absolute 0.03 K/mm3 (0.00-0.031); Immature Granulocyte Percent A 0.3 % (0-0.5); Lymphocytes Absolute Auto 1.22 K/mm3 (0.9-3.2); Lymphocytes Percent Auto 13.8 % (18.3-44.2); Mean Corpuscular HGB Conc 30.5 g/dl (32-36); Mean Corpuscular Hemoglobin 28.8 pg (26-34); Mean Corpuscular Volume 94.5 fl (80-100); Mean Platelet Volume 7.7 fl (7.4-10.4); Monocytes Absolute Auto 0.9 K/mm3 (0.1-0.6); Monocytes Percent Auto 9.8 % (2.6-8.5); Neutrophils Absolute Auto 6.7 K/mm3 (1.3-6.7); Platelet Count Result 214 k/mm3 (150-375); Red Blood Count 2.71 M/mm3 (4.6-6.20); Red Cell Distribution Width 13.6 % (11.5-14.5); White Blood Count 8.8 K/mm3 (4.5-10.0)
[2022-02-07 21:37] LABS: Lactic Acid Reflex 0.9 mmol/L (0.7-2.0)
[2022-02-07 21:41] LABS: Alanine Aminotransferase 11 U/L (6-50); Albumin Level 2.8 g/dL (3.5-5.1); Alkaline Phosphatase 51 U/L (38-126); Aspartate Amino Transferase 25 U/L (17-59); Bilirubin,Total 0.2 mg/dL (0.2-1.3); Blood Urea Nitrogen 25 mg/dL (9-20); CRP 1.2 mg/dL (<1.0); Calcium 8.1 mg/dL (8.4-10.2); Carbon Dioxide > 40 mmol/L (22-30); Chloride 86 mmol/L (98-107); Estimated CRCL calculation 69 ml/min; Estimated Glomerular Filt Rate > 60; Glucose 100 mg/dL (65-110); Potassium 3.8 mmol/L (3.4-5.0); Sodium 130 mmol/L (137-145)
[2022-02-08] VITALS (19 sets, daily range): BP systolic 90–110; BP diastolic 42–48; PULSE 69–108; RESP 14–22; TEMP 36.4–36.8; O2SAT 96–100
[2022-02-08] MEDS: ALBUTEROL SULFATE NEB 2.5 MG/3 ML INH INHALATION ×6 (01:25→20:05)
[2022-02-08] MEDS: IPRATROPIUM BR 0.02% INH SOLN 0.5 MG/2.5 ML VIAL INHALATION ×6 (01:25→20:05)
[2022-02-08] MEDS: CENTRAL LINE FLUSH 10 ML IV PUSH ×3 (05:09→21:22)
--- NOTE | 2022-02-08 07:15 | PM.IMPN ---
Progress Note: A&P Assessment and Plan (1) Acute on chronic respiratory failure with hypoxia and hypercapnia: Code(s): J96.21 - Acute and chronic respiratory failure with hypoxia; J96.22 - Acute and chronic respiratory failure with hypercapnia Status: Acute Assessment and Plan: Patient is on 2.5L at home, now requiring 5L nc, patient may require thoracic surgery for loculated moderate right-sided pleural effusion, likely require VATS procedure, called [facility] connect Line, gave patient's details, patient is on a wait list. They will call us once bed is available. 02/08: Confirmed patient still on waiting list, updated [facility]'s on patient's stable condition, they will call when bed is available. (2) Chronic anemia: Code(s): D64.9 - Anemia, unspecified Status: Acute Assessment and Plan: Anemia of chronic disease suspected, hgb stable, monitor (3) Loculated pleural effusion: Code(s): J90 - Pleural effusion, not elsewhere classified Status: Acute Assessment and Plan: Patient with loculated pleural effusion status post chest tube at [facility], patient likely will be transferred to a higher level of care for thoracic surgery, called [facility], he has been placed on a waiting list for medical bed. (4) Chronic interstitial lung disease: Code(s): J84.9 - Interstitial pulmonary disease, unspecified Status: Acute Assessment and Plan: Patient has a history of chronic interstitial lung disease, off steroids (5) Chronic obstructive pulmonary disease: Code(s): J44.9 - Chronic obstructive pulmonary disease, unspecified Status: Acute Assessment and Plan: Continue bronchodilators, supplemental oxygen, BiPAP if needed, stable (6) Pneumonia: Code(s): J18.9 - Pneumonia, unspecified organism Status: Acute Assessment and Plan: Patient is on Zyvox, started on 02/03/22 (7) Hypotension: Code(s): I95.9 - Hypotension, unspecified Status: Acute Assessment and Plan: Overnight patient had hypotensive episode, will discontinue two of patient's blood pressure medications and monitor Plan DVT prophylaxis: Lovenox Stress ulcer prophylaxis: Protonix Nutrition: Heart healthy diet 02/08/2022 Called [facility] again, patient is on a waiting list for admission to the medical floor, they will call back with the bed once available. Code Status: Full code Subjective Date/time seen: 02/08/22 07:15 Interval history: Overnight hypotensive event noted, labs reviewed, patient back to baseline this morning. No overnight events noted. No chest pain or shortness of breath. No nausea, vomiting or diarrhea. No fevers or chills. Review of Systems Review of Systems: 12 point review of systems was assessed and was negative except as noted in the HPI Exam Narrative: General: No acute distress, alert and oriented per baseline HEENT: Atraumatic, normocephalic, mucous membranes moist CV: Regular rate and rhythm, S1, S2 Lungs: Clear to auscultation bilaterally, no rales or crackles noted, no wheezes, decreased air entry noted at bases Abdomen: Soft, nontender, nondistended Extremities: Normal to inspection Skin: No rashes noted, no lesions or wounds seen Psych: Euthymic, normal affect Objective Data Vital Signs Vital Signs: Vital Signs - 24 hr 02/07/22 08:27 02/07/22 08:55 02/07/22 09:10 Temperature Pulse Rate 76 80 82 Respiratory Rate 16 16 Blood Pressure 132/52 L Pulse Oximetry 99 Oxygen Delivery Oxygen Flow Rate 02/07/22 13:30 02/07/22 13:45 02/07/22 15:08 Temperature 98.1 F Pulse Rate 82 84 73 Respiratory Rate 16 16 16 Blood Pressure 102/42 L Pulse Oximetry 100 Oxygen Delivery Oxygen Flow Rate 02/07/22 16:30 02/07/22 16:39 02/07/22 16:40 Temperature Pulse Rate 79 82 82 Respiratory Rate 16 16 16 Blood
[2022-02-08] MEDS: FLUTICASONE/SALMETEROL 45-21 MCG INHALER 1 PUFF 2 PUFF INHALATION ×2 (09:19→20:05)
[2022-02-08] MEDS: PANTOPRAZOLE 40 MG TABLET PO ×2 (10:30→21:21)
[2022-02-08] MEDS: LINEZOLID 600 MG TABLET PO ×2 (10:30→21:21)
[2022-02-08] MEDS: ASPIRIN 81 MG ENTERIC TABLET PO (10:30)
[2022-02-08] MEDS: GABAPENTIN 100 MG CAPSULE 200 MG PO ×3 (10:30→17:42)
[2022-02-08] MEDS: MULTIVITAMINS THERAPEUTIC TAB (*BKC) 1 TABLET PO (10:30)
[2022-02-08] MEDS: ROFLUMILAST 500 MCG TABLET PO (10:31)
[2022-02-08] MEDS: ENOXAPARIN 40 MG/0.4 ML SYRINGE SUB-Q (10:31)
--- NOTE | 2022-02-08 10:31 | PC.NURSE ---
waiting for Dr. Villegas to call me back. I have called her to ask if she would like for me to give patient his amlodipine, coreg, and lisinopril, as he has a hypotensive episode overnight and his blood pressure this morning is 100/46 manually.
[2022-02-08] MEDS: carvediloL 3.125 MG TABLET PO (10:43)
--- NOTE | 2022-02-08 13:20 | PC.NURSE ---
Called Dr. Villegas and left her a message about patient's blood pressure being 90/44. Left call back number
[2022-02-08] MEDS: LATANOPROST 0.005% OP SOLN 2.5 ML BTL 1 DROP EACH EYE (21:21)
[2022-02-08] MEDS: TAMSULOSIN HCL 0.4 MG CAPSULE PO (21:21)
[2022-02-08] MEDS: ATORVASTATIN 10 MG TABLET PO (21:21)
[2022-02-09] VITALS (14 sets, daily range): BP systolic 108–128; BP diastolic 42–48; PULSE 79–89; RESP 16–22; TEMP 36.3–37; O2SAT 94–100
--- NOTE | 2022-02-09 02:45 | PCRCNOTE ---
Window of time for administration has passed. See next scheduled administration.
[2022-02-09] MEDS: ALBUTEROL SULFATE NEB 2.5 MG/3 ML INH INHALATION ×4 (03:16→16:38)
[2022-02-09] MEDS: IPRATROPIUM BR 0.02% INH SOLN 0.5 MG/2.5 ML VIAL INHALATION ×5 (03:16→20:11)
[2022-02-09] MEDS: CENTRAL LINE FLUSH 10 ML IV PUSH ×3 (07:01→20:28)
[2022-02-09] MEDS: GABAPENTIN 100 MG CAPSULE 200 MG PO ×3 (08:52→17:02)
[2022-02-09] MEDS: ASPIRIN 81 MG ENTERIC TABLET PO (08:53)
[2022-02-09] MEDS: ROFLUMILAST 500 MCG TABLET PO (08:53)
[2022-02-09] MEDS: buPROPion HCL XL (24 HR) 150 MG TABCR PO (08:53)
[2022-02-09] MEDS: MULTIVITAMINS THERAPEUTIC TAB (*BKC) 1 TABLET PO (08:53)
[2022-02-09] MEDS: PANTOPRAZOLE 40 MG TABLET PO ×2 (08:54→20:28)
[2022-02-09] MEDS: ENOXAPARIN 40 MG/0.4 ML SYRINGE SUB-Q (08:55)
--- NOTE | 2022-02-09 08:59 | PM.IMPN ---
Progress Note: A&P Assessment and Plan (1) Acute on chronic respiratory failure with hypoxia and hypercapnia: Code(s): J96.21 - Acute and chronic respiratory failure with hypoxia; J96.22 - Acute and chronic respiratory failure with hypercapnia Status: Acute Assessment and Plan: Patient is on 2.5L at home, now requiring 5L nc, patient may require thoracic surgery for loculated moderate right-sided pleural effusion, likely require VATS procedure, called [facility] connect line, gave patient's details, patient is on a wait list. They will call us once bed is available. 02/08: Confirmed patient still on waiting list, updated [facility] on patient's stable condition, they will call when bed is available. 02/09: Still on waiting list at [facility] (2) Chronic anemia: Code(s): D64.9 - Anemia, unspecified Status: Acute Assessment and Plan: Anemia of chronic disease suspected, hgb stable, monitor (3) Loculated pleural effusion: Code(s): J90 - Pleural effusion, not elsewhere classified Status: Acute Assessment and Plan: Patient with loculated pleural effusion status post chest tube at [facility], patient likely will be transferred to a higher level of care for thoracic surgery, called [facility], he has been placed on a waiting list for medical bed. (4) Chronic interstitial lung disease: Code(s): J84.9 - Interstitial pulmonary disease, unspecified Status: Acute Assessment and Plan: Patient has a history of chronic interstitial lung disease, off steroids (5) Chronic obstructive pulmonary disease: Code(s): J44.9 - Chronic obstructive pulmonary disease, unspecified Status: Acute Assessment and Plan: Continue bronchodilators, supplemental oxygen, BiPAP if needed, stable (6) Pneumonia: Code(s): J18.9 - Pneumonia, unspecified organism Status: Acute Assessment and Plan: Patient is on Zyvox, started on 02/03/22 (7) Hypotension: Code(s): I95.9 - Hypotension, unspecified Status: Acute Assessment and Plan: Overnight patient had hypotensive episode, will discontinue two of patient's blood pressure medications and monitor (8) Hyponatremia: Code(s): E87.1 - Hypo-osmolality and hyponatremia Status: Acute Assessment and Plan: Chronic, uncertain etiology, stable, cont to monitor Plan DVT prophylaxis with Lovenox Stress ulcer prophylaxis with Protonix Heart healthy diet 02/09/22 Called [facility] again, patient is on a waiting list for admission to the medical floor, they will call back with the bed once available. Code Status with full code Subjective Date/time seen: 02/09/22 08:59 Interval history: Patient states he feels about the same as yesterday, has a blanket over his head and does not want answer further questions. No overnight events noted. No chest pain or shortness of breath. No nausea, vomiting or diarrhea. No fevers or chills. Review of Systems Review of Systems: All systems reviewed & are unremarkable except as noted in HPI and below Exam Narrative: General: No acute distress, alert and oriented per baseline HEENT: Atraumatic, normocephalic, mucous membranes moist CV: Regular rate and rhythm, S1, S2 Lungs: Clear to auscultation bilaterally, no rales or crackles noted, no wheezes, decreased air entry noted at bases Abdomen: Soft, nontender, nondistended Extremities: Normal to inspection Skin: No rashes noted, no lesions or wounds seen Psych: Euthymic, normal affect Objective Data Vital Signs Vital Signs: Vital Signs - 24 hr 02/08/22 09:07 02/08/22 09:07 02/08/22 09:23 Temperature Pulse Rate 77 78 Respiratory Rate 16 16 Blood Pressure Pulse Oximetry 97 Oxygen Delivery Nasal Cannula Oxygen Flow Rate 4 02/08/22 10:10 02/08/22 10:43 02/08/22 10:30 Temperature Pulse Rate 108 H
[2022-02-09] MEDS: FLUTICASONE/SALMETEROL 45-21 MCG INHALER 1 PUFF 2 PUFF INHALATION ×2 (09:49→20:11)
[2022-02-09 09:51] LABS: Basophils Percent Auto 0.1 % (0.2-1.2); Eosinophils Absolute Auto 0.1 K/mm3 (0-0.3); Eosinophils Percent Auto 0.7 % (0-4.4); Hematocrit 26.5 % (42.0-52.0); Hemoglobin 8.1 g/dL (14.0-18.0); Immature Granulocyte Absolute 0.02 K/mm3 (0.00-0.031); Immature Granulocyte Percent A 0.2 % (0-0.5); Lymphocytes Absolute Auto 0.96 K/mm3 (0.9-3.2); Lymphocytes Percent Auto 10.6 % (18.3-44.2); Mean Corpuscular HGB Conc 30.6 g/dl (32-36); Mean Corpuscular Hemoglobin 28.9 pg (26-34); Mean Corpuscular Volume 94.6 fl (80-100); Mean Platelet Volume 7.8 fl (7.4-10.4); Monocytes Absolute Auto 0.6 K/mm3 (0.1-0.6); Monocytes Percent Auto 6.3 % (2.6-8.5); Neutrophils Absolute Auto 7.4 K/mm3 (1.3-6.7); Neutrophils Percent Auto 82.1 % (45.5-73.1); Platelet Count Result 198 k/mm3 (150-375); Red Cell Distribution Width 13.5 % (11.5-14.5); White Blood Count 9.1 K/mm3 (4.5-10.0)
[2022-02-09 10:05] LABS: Blood Urea Nitrogen 14 mg/dL (9-20); Calcium 8.2 mg/dL (8.4-10.2); Carbon Dioxide > 40 mmol/L (22-30); Chloride 83 mmol/L (98-107); Estimated CRCL calculation 129 ml/min; Estimated Glomerular Filt Rate > 60; Glucose 134 mg/dL (65-110); Potassium 3.8 mmol/L (3.4-5.0); Sodium 131 mmol/L (137-145)
[2022-02-09 16:59] LABS: Base Excess ABG 8.3 mEq/l (+/-2.0); Fractional Inspired Oxygen 32 %; HCO3 ABG 34.5 mEq/l (22.0-26.0); Oxygen Content ABG 11.5 %vol (16.0-22.0); Oxygen Saturation ABG 91.2 % (95.0-100.0); Oxyhemoglobin 91.4 % THb (90.0-100.0); PCO2 ABG 58.5 mmHg (35.0-45.0); PO2 ABG 62.7 mmHg (80.0-100.0); PO2 FiO2 Ratio Arterial Blood 1.96 %; Total Hemoglobin 8.9 g/dL (12.0-18.0); pH ABG 7.389 (7.350-7.450)
[2022-02-09 17:00] LABS: Device NASAL CANNULA; Modified Allen's Test Pass; Site Drawn RIGHT RADIAL
--- NOTE | 2022-02-09 18:06 | PM.PNPUL ---
Progress Note: A&P Assessment and Plan (1) Empyema of right pleural space: Code(s): J86.9 - Pyothorax without fistula Status: Acute Assessment and Plan: This 66-year-old man with a history of chronic hypoxemic hypercapnic respiratory failure related to severe emphysema chronically on supplemental oxygen has been treated for right empyema. Empyema was diagnosed at [facility] where the patient was recently hospitalized. Reportedly he grew MRSA and has been treated with Zyvox. He has no leukocytosis. On chest CT he had loculated pleural effusion with evidence of partial right lower lobe atelectasis/consolidation. In addition there was a smaller left pleural effusion. The patient has been treated with Zyvox, nebulized short-acting bronchodilators, nebulized mucolytic agents in an effort to mobilize bronchial secretions. HE has fewer bronchial secretions are significantly less but chest x-ray is essentially unchanged. I suspect the right lower lobe consolidation seen on chest CT represents lung entrapment rather than atelectasis related to bronchial secretions. Plan: Continue with short-acting bronchodilators, DVT prophylaxis, Zyvox and O2. He has no leukocytosis to suggest active infection. Patient will probably benefit from right decortication via VATS if he can tolerate it. He is waiting for transfer to [facility]. (2) Acute on chronic respiratory failure with hypoxia and hypercapnia: Code(s): J96.21 - Acute and chronic respiratory failure with hypoxia; J96.22 - Acute and chronic respiratory failure with hypercapnia Status: Acute Assessment and Plan: (3) Heart failure with preserved ejection fraction: Code(s): I50.30 - Unspecified diastolic (congestive) heart failure Status: Acute Assessment and Plan: (4) Chronic obstructive pulmonary disease: Code(s): J44.9 - Chronic obstructive pulmonary disease, unspecified Status: Acute Assessment and Plan: Time Spent With Patient Time with patient: less than 15 minutes Subjective Date/time seen: 02/09/22 18:06 Angus Stovall is a 66 year old man awaiting transfer to [facility] for thoracic surgery evaluation. He has a loculated effusion on the right. He is on 3 L/min O2, no specific complaints oter than he does not like the fluid restriction and low sodium diet. Interval history: CXR 02/08/2022 : 1. Stable small pleural effusions, right worse than left. 2. Stable diffuse lung disease, likely emphysema with superimposed mild pulmonary edema and right-sided atelectasis versus pneumonia. Review of Systems Review of Systems: All systems reviewed & are unremarkable except as noted in HPI and below Exam Narrative: GENERAL APPEARANCE: Well developed, well nourished, alert and cooperative, no respiratory distress while in the semi recumbent position in his bed Room 252 on supplemental oxygen L/min SKIN: Inspection of the skin reveals no rashes, ulcerations or petechiae. LUNGS: Auscultation of the lungs revealed decreased breath sounds right base posteriorly, no wheezing CARDIAC: There was a regular rate and rhythm without any murmurs, gallops, rubs. ABDOMEN: Soft and nontender with normal bowel sounds. There was no organomegaly. LYMPH NODES: No lymphadenopathy was appreciated in the neck. EXTREMITIES: No cyanosis, clubbing or edema. NEUROLOGIC: Alert and oriented x 3. Normal affect. Objective Data Vital Signs Vital Signs: Vital Signs - 24 hr 02/08/22 20:05 02/08/22 20:02/08/22 20:32 Temperature Pulse Rate 78 76 Respiratory Rate 16 16 Blood Pressure Pulse Oximetry 96 Oxygen Delivery
[2022-02-09] MEDS: ALBUTEROL SULFATE NEB 2.5 MG/0.5 ML INH (20:11)
[2022-02-09] MEDS: TAMSULOSIN HCL 0.4 MG CAPSULE PO (20:28)
[2022-02-09] MEDS: ATORVASTATIN 10 MG TABLET PO (20:28)
[2022-02-09] MEDS: LATANOPROST 0.005% OP SOLN 2.5 ML BTL 1 DROP EACH EYE (20:28)
--- NOTE | 2022-02-09 21:25 | PC.NURSE ---
RT informed RN and supervisor paint department that patient was being sexually inappropriate verbally with her. RN and supervisor paint department both instructed patient this is not to happen again. He verbalized understanding.
[2022-02-09] MEDS: MELATONIN 3 MG TABLET 9 MG PO (22:39)
[2022-02-10] VITALS (18 sets, daily range): BP systolic 116–140; BP diastolic 48–74; PULSE 84–112; RESP 16–20; TEMP 36.3–36.8; O2SAT 86–100
--- NOTE | 2022-02-10 00:12 | PCRCNOTE ---
Pt asking not to be woken up for UPD treatments on 9 PM. RT checked on pt for 0000 UPD treatment and found pt to be sleeping. RT returned medications. Next available UPD at 0400.
[2022-02-10] MEDS: IPRATROPIUM BR 0.02% INH SOLN 0.5 MG/2.5 ML VIAL INHALATION ×5 (03:02→20:44)
[2022-02-10] MEDS: ALBUTEROL SULFATE NEB 2.5 MG/0.5 ML INH (03:02)
[2022-02-10 04:41] LABS: Eosinophils Absolute Auto 0.2 K/mm3 (0-0.3); Hematocrit 24.1 % (42.0-52.0); Hemoglobin 7.5 g/dL (14.0-18.0); Immature Granulocyte Absolute 0.03 K/mm3 (0.00-0.031); Immature Granulocyte Percent A 0.4 % (0-0.5); Lymphocytes Absolute Auto 0.92 K/mm3 (0.9-3.2); Lymphocytes Percent Auto 12.5 % (18.3-44.2); Mean Corpuscular HGB Conc 31.1 g/dl (32-36); Mean Corpuscular Hemoglobin 29.3 pg (26-34); Mean Corpuscular Volume 94.1 fl (80-100); Mean Platelet Volume 7.8 fl (7.4-10.4); Monocytes Absolute Auto 0.5 K/mm3 (0.1-0.6); Monocytes Percent Auto 6.6 % (2.6-8.5); Neutrophils Absolute Auto 5.8 K/mm3 (1.3-6.7); Neutrophils Percent Auto 78.5 % (45.5-73.1); Platelet Count Result 177 k/mm3 (150-375); Red Blood Count 2.56 M/mm3 (4.6-6.20); Red Cell Distribution Width 13.6 % (11.5-14.5); White Blood Count 7.4 K/mm3 (4.5-10.0)
[2022-02-10 04:56] LABS: Blood Urea Nitrogen 11 mg/dL (9-20); Calcium 8.1 mg/dL (8.4-10.2); Carbon Dioxide > 40 mmol/L (22-30); Chloride 85 mmol/L (98-107); Estimated CRCL calculation 129 ml/min; Estimated Glomerular Filt Rate > 60; Glucose 113 mg/dL (65-110); Sodium 132 mmol/L (137-145)
[2022-02-10] MEDS: CENTRAL LINE FLUSH 10 ML IV PUSH ×3 (05:39→20:16)
[2022-02-10] MEDS: ALBUTEROL SULFATE NEB 2.5 MG/3 ML INH INHALATION ×4 (07:52→20:44)
[2022-02-10] MEDS: FLUTICASONE/SALMETEROL 45-21 MCG INHALER 1 PUFF 2 PUFF INHALATION ×2 (07:57→20:45)
--- NOTE | 2022-02-10 07:59 | PM.IMPN ---
Progress Note: A&P Assessment and Plan (1) Acute on chronic respiratory failure with hypoxia and hypercapnia: Code(s): J96.21 - Acute and chronic respiratory failure with hypoxia; J96.22 - Acute and chronic respiratory failure with hypercapnia Status: Acute Assessment and Plan: Patient is on 2.5L at home, now requiring 5L nc, patient may require thoracic surgery for loculated moderate right-sided pleural effusion, likely require VATS procedure, called [facility] connect line, gave patient's details, patient is on a wait list. They will call us once bed is available. 02/08: Confirmed patient still on waiting list, updated [facility] on patient's stable condition, they will call when bed is available. 02/09: Still on waiting list at [facility] 02/10: No change (2) Chronic anemia: Code(s): D64.9 - Anemia, unspecified Status: Acute Assessment and Plan: Anemia of chronic disease suspected, hgb stable, monitor (3) Loculated pleural effusion: Code(s): J90 - Pleural effusion, not elsewhere classified Status: Acute Assessment and Plan: Patient with loculated pleural effusion status post chest tube at [facility], patient likely will be transferred to a higher level of care for thoracic surgery, called [facility], he has been placed on a waiting list for medical bed. (4) Chronic interstitial lung disease: Code(s): J84.9 - Interstitial pulmonary disease, unspecified Status: Acute Assessment and Plan: Patient has a history of chronic interstitial lung disease, off steroids (5) Chronic obstructive pulmonary disease: Code(s): J44.9 - Chronic obstructive pulmonary disease, unspecified Status: Acute Assessment and Plan: Continue bronchodilators, supplemental oxygen, BiPAP if needed, stable (6) Pneumonia: Code(s): J18.9 - Pneumonia, unspecified organism Status: Acute Assessment and Plan: Patient is on Zyvox, started on 02/03/22 (7) Hypotension: Code(s): I95.9 - Hypotension, unspecified Status: Acute Assessment and Plan: Overnight patient had hypotensive episode, will discontinue two of patient's blood pressure medications and monitor (8) Hyponatremia: Code(s): E87.1 - Hypo-osmolality and hyponatremia Status: Acute Assessment and Plan: Chronic, uncertain etiology, stable, cont to monitor Plan DVT prophylaxis with Lovenox Stress ulcer prophylaxis with Protonix 02/09/22 Called [facility] again, patient is on a waiting list for admission to the medical floor, they will call back with the bed once available. Code Status with full code Subjective Date/time seen: 02/10/22 07:59 Interval history: Patient states he feels about the same as yesterday, no changes. No overnight events noted. No chest pain or shortness of breath. No nausea, vomiting or diarrhea. No fevers or chills. Review of Systems Review of Systems: All systems reviewed & are unremarkable except as noted in HPI and below Exam Narrative: General: No acute distress, alert and oriented per baseline HEENT: Atraumatic, normocephalic, mucous membranes moist CV: Regular rate and rhythm, S1, S2 Lungs: Clear to auscultation bilaterally, no rales or crackles noted, no wheezes, decreased air entry noted at bases Abdomen: Soft, nontender, nondistended Extremities: Normal to inspection Skin: No rashes noted, no lesions or wounds seen Psych: Euthymic, normal affect Objective Data Vital Signs Vital Signs: Vital Signs - 24 hr 02/09/22 09:40 02/09/22 09:40 02/09/22 09:58 Temperature Pulse Rate 84 Respiratory Rate 20 Blood Pressure Pulse Oximetry 100 94 Oxygen Delivery Nasal Cannula Nasal Cannula Oxygen Flow Rate 4 2 02/09/22 09:58 02/09/22 09:00 02/09/22 12:24 Temperature Pulse Rate 86 83 Respiratory Rate 22 H 20 Blood Pressure Pu
[2022-02-10] MEDS: ROFLUMILAST 500 MCG TABLET PO (08:25)
[2022-02-10] MEDS: GABAPENTIN 100 MG CAPSULE 200 MG PO ×3 (08:25→17:13)
[2022-02-10] MEDS: FLUTICASONE PROPIONATE 0.05% NA SPR 16 GM BTL (*BKC) 1 SPRAY NASAL (08:25)
[2022-02-10] MEDS: ENOXAPARIN 40 MG/0.4 ML SYRINGE SUB-Q (08:25)
[2022-02-10] MEDS: buPROPion HCL XL (24 HR) 150 MG TABCR PO (08:25)
[2022-02-10] MEDS: MULTIVITAMINS THERAPEUTIC TAB (*BKC) 1 TABLET PO (08:25)
[2022-02-10] MEDS: PANTOPRAZOLE 40 MG TABLET PO ×2 (08:25→20:12)
[2022-02-10] MEDS: ASPIRIN 81 MG ENTERIC TABLET PO (08:25)
--- NOTE | 2022-02-10 09:29 | PCPTNOTE ---
Attempted PT evaluation, patient refused stating I have difficult breathing the way it is. When asked if therapist could return this afternoon, patient stated I have a terrible amount of phone calls to make this afternoon. Per patient, he was fallen when 2 women attempted to transfer patient in the past. Patient adamant about not getting out of bed. RN aware. Will follow.
--- NOTE | 2022-02-10 15:25 | PCOTNOTE ---
Attempted OT evaluation, patient refused stating he is, not interested in getting out of bed or having therapy right now. Patient reports he is waiting for a different bed and is easily out of breath. Patient apologized stating, I'm not trying to be uncooperative or rude. Will follow.
[2022-02-10] MEDS: LATANOPROST 0.005% OP SOLN 2.5 ML BTL 1 DROP EACH EYE (20:12)
[2022-02-10] MEDS: ATORVASTATIN 10 MG TABLET PO (20:12)
[2022-02-10] MEDS: TAMSULOSIN HCL 0.4 MG CAPSULE PO (21:45)
[2022-02-10] MEDS: MELATONIN 3 MG TABLET 9 MG PO (21:45)
[2022-02-11] VITALS (16 sets, daily range): BP systolic 127–149; BP diastolic 41–56; PULSE 84–94; RESP 16–22; TEMP 36.1–37.1; O2SAT 96–100
[2022-02-11] MEDS: IPRATROPIUM BR 0.02% INH SOLN 0.5 MG/2.5 ML VIAL INHALATION ×6 (02:16→20:15)
[2022-02-11] MEDS: ALBUTEROL SULFATE NEB 2.5 MG/3 ML INH INHALATION ×6 (02:16→20:15)
[2022-02-11] MEDS: CENTRAL LINE FLUSH 10 ML IV PUSH ×3 (05:30→19:59)
--- NOTE | 2022-02-11 05:38 | PC.NURSE ---
unable to obtain daily weight due to the need for the bed to be re-zeroed, and patient refuses to get out of bed.
[2022-02-11 05:48] LABS: Anion Gap 5 mmol/L (8-16); Blood Urea Nitrogen 9 mg/dL (9-20); Calcium 8.5 mg/dL (8.4-10.2); Carbon Dioxide 34 mmol/L (22-30); Chloride 91 mmol/L (98-107); Estimated CRCL calculation 157 ml/min; Estimated Glomerular Filt Rate > 60; Glucose 100 mg/dL (65-110); Potassium 3.9 mmol/L (3.4-5.0); Sodium 130 mmol/L (137-145)
[2022-02-11 05:57] LABS: Basophils Percent Auto 0.1 % (0.2-1.2); Eosinophils Absolute Auto 0.1 K/mm3 (0-0.3); Eosinophils Percent Auto 1.2 % (0-4.4); Hematocrit 23.7 % (42.0-52.0); Hemoglobin 7.5 g/dL (14.0-18.0); Immature Granulocyte Absolute 0.01 K/mm3 (0.00-0.031); Immature Granulocyte Percent A 0.1 % (0-0.5); Lymphocytes Absolute Auto 0.95 K/mm3 (0.9-3.2); Lymphocytes Percent Auto 13.9 % (18.3-44.2); Mean Corpuscular HGB Conc 31.6 g/dl (32-36); Mean Corpuscular Volume 91.5 fl (80-100); Mean Platelet Volume 8.1 fl (7.4-10.4); Monocytes Absolute Auto 0.6 K/mm3 (0.1-0.6); Monocytes Percent Auto 8.5 % (2.6-8.5); Neutrophils Absolute Auto 5.2 K/mm3 (1.3-6.7); Neutrophils Percent Auto 76.2 % (45.5-73.1); Platelet Count Result 194 k/mm3 (150-375); Red Blood Count 2.59 M/mm3 (4.6-6.20); Red Cell Distribution Width 13.6 % (11.5-14.5); White Blood Count 6.9 K/mm3 (4.5-10.0)
[2022-02-11] MEDS: FLUTICASONE/SALMETEROL 45-21 MCG INHALER 1 PUFF 2 PUFF INHALATION ×2 (08:34→20:15)
[2022-02-11] MEDS: ASPIRIN 81 MG ENTERIC TABLET PO (08:50)
[2022-02-11] MEDS: ENOXAPARIN 40 MG/0.4 ML SYRINGE SUB-Q (08:50)
[2022-02-11] MEDS: PANTOPRAZOLE 40 MG TABLET PO ×2 (08:50→19:55)
[2022-02-11] MEDS: FLUTICASONE PROPIONATE 0.05% NA SPR 16 GM BTL (*BKC) 1 SPRAY NASAL (08:50)
[2022-02-11] MEDS: GABAPENTIN 100 MG CAPSULE 200 MG PO ×3 (08:50→16:08)
[2022-02-11] MEDS: MULTIVITAMINS THERAPEUTIC TAB (*BKC) 1 TABLET PO (08:50)
[2022-02-11] MEDS: buPROPion HCL XL (24 HR) 150 MG TABCR PO (08:50)
[2022-02-11] MEDS: ROFLUMILAST 500 MCG TABLET PO (08:50)
--- NOTE | 2022-02-11 13:19 | PCPTNOTE ---
Attempted PT evaluation, patient refused stating the only way he would get out of bed is with a lillian lift. Patient refused to sit EOB due to severe dizziness. RN aware. Hospitalist made aware of DC therapy orders due to this reason.
--- NOTE | 2022-02-11 13:24 | PM.PNPUL ---
Progress Note: A&P Assessment and Plan (1) Empyema of right pleural space: Code(s): J86.9 - Pyothorax without fistula Status: Acute Assessment and Plan: This 66-year-old man with a history of chronic hypoxemic hypercapnic respiratory failure related to severe emphysema chronically on supplemental oxygen has been treated for right empyema. Empyema was diagnosed at [facility] where the patient was recently hospitalized. Reportedly he grew MRSA and has been treated with Zyvox. He has no leukocytosis. On chest CT he had loculated pleural effusion with evidence of partial right lower lobe atelectasis/consolidation. In addition there was a smaller left pleural effusion. the patient has been treated with Zyvox, nebulized short-acting bronchodilators, nebulized mucolytic agents in an effort to mobilize bronchial secretions. Chest x-rays over the last week essentially unchanged. loculated effusion unchanged, also a partial right lower lobe atelectasis. Patient is currently of antibiotic. No leukocytosis. Remaining on supplemental oxygen. Plan: Continue with short-acting bronchodilators, DVT prophylaxis. He has no leukocytosis to suggest active infection. Patient will probably benefit from right decortication via VATS if he can tolerate it. patient is waiting for transfer to [facility]. Repeat chest x-ray in a.m. (2) Acute on chronic respiratory failure with hypoxia and hypercapnia: Code(s): J96.21 - Acute and chronic respiratory failure with hypoxia; J96.22 - Acute and chronic respiratory failure with hypercapnia Status: Acute (3) Heart failure with preserved ejection fraction: Code(s): I50.30 - Unspecified diastolic (congestive) heart failure Status: Acute (4) Chronic obstructive pulmonary disease: Code(s): J44.9 - Chronic obstructive pulmonary disease, unspecified Status: Acute Subjective Date/time seen: 02/11/22 13:24 Patient without any new respiratory symptoms. Has no fever. Remaining on same oxygen flow. Still coughing with less sputum than before. He has no wheezing. He still waiting for transfer to a tertiary care center for thoracic surgery consultation regarding right empyema. Review of Systems Review of Systems: All systems reviewed & are unremarkable except as noted in HPI and below Exam Narrative: GENERAL APPEARANCE: Well developed, well nourished, alert and cooperative, who appears to be mild respiratory distress while in the semi recumbent position in his ICU bed and on supplemental oxygen SKIN: Inspection of the skin reveals no rashes, ulcerations or petechiae. HEENT: Sclerae anicteric and conjunctivae pink and moist. Extraocular movements were intact and pupils were equal, round. NECK: Supple. There was no thyroid enlargement, and no tenderness, or masses were felt. CHEST: Normal AP diameter and normal contour without any kyphoscoliosis. LUNGS: Auscultation of the lungs revealed decreased breath sounds right base posteriorly, no wheezing CARDIAC: There was a regular rate and rhythm without any murmurs, gallops, rubs. ABDOMEN: Soft and nontender with normal bowel sounds. There was no organomegaly. LYMPH NODES: No lymphadenopathy was appreciated in the neck. EXTREMITIES: No cyanosis, clubbing or edema. NEUROLOGIC: Alert and oriented x 3. Normal affect. Objective Data Vital Signs Vital Signs: Vital Signs - 24 hr 02/10/22 13:55 02/10/22 14:03 02/10/22 14:03 Temperature 36.3 C L Pulse Rate 84 112 H 104 H Respiratory Rate 16 Blood Pressure 116/74 Pulse Oximetry 95 86 L 94 Oxygen Delivery Oxygen Flow Rate 02/10/22 13:55 02/10/22 14:00 02/10/22 16:40 Temperature Pulse Rate 88 Respiratory Rate 20 Blood Pressure Pulse Oximetry 86 L 94 Oxygen Delivery Nasal Cannula Nasal Cannula Oxygen Flow Rate 3 4 02/10/22 20:30 02/10/22 20:51 02/10/22 20:45 Temperature 36.8 C Pulse Rate 94
--- NOTE | 2022-02-11 14:26 | PCOTNOTE ---
Patient refusing therapy stating the only way he would get out of bed is with a lillian lift. Patient refused to sit EOB due to severe dizziness. RN aware. Hospitalist made aware of DC therapy orders due to this reason.
--- NOTE | 2022-02-11 18:54 | PM.IMPN ---
Progress Note: A&P Assessment and Plan (1) Acute on chronic respiratory failure with hypoxia and hypercapnia: Code(s): J96.21 - Acute and chronic respiratory failure with hypoxia; J96.22 - Acute and chronic respiratory failure with hypercapnia Status: Acute (2) Chronic anemia: Code(s): D64.9 - Anemia, unspecified Status: Acute (3) Loculated pleural effusion: Code(s): J90 - Pleural effusion, not elsewhere classified Status: Acute (4) Chronic interstitial lung disease: Code(s): J84.9 - Interstitial pulmonary disease, unspecified Status: Acute (5) Chronic obstructive pulmonary disease: Code(s): J44.9 - Chronic obstructive pulmonary disease, unspecified Status: Acute (6) Pneumonia: Code(s): J18.9 - Pneumonia, unspecified organism Status: Acute (7) Hypotension: Code(s): I95.9 - Hypotension, unspecified Status: Acute (8) Hyponatremia: Code(s): E87.1 - Hypo-osmolality and hyponatremia Status: Acute Plan 02/11/22 pt w empyema need CTS consult and possible VATS pt appears stable at this time pulm following, POC reviewed w him today and recs appreciated transfer line contacted to review pt has been maintained on transfer list cont current care will follow up again tomorrow w [facility] and call other hospitals if necessary Subjective Date/time seen: 02/11/22 18:54 pt doing ok waiting for transfer to [facility], has been having worsening weakness after spine surgery now nearly bedbound but does report improvement when receiving PT outpt Review of Systems Review of Systems: All systems reviewed & are unremarkable except as noted in HPI and below Exam Narrative: General: No acute distress, alert and oriented per baseline HEENT: Atraumatic, normocephalic, mucous membranes moist CV: Regular rate and rhythm, S1, S2 Lungs: Clear to auscultation bilaterally, no rales or crackles noted, no wheezes, decreased air entry noted at bases Abdomen: Soft, nontender, nondistended Extremities: Normal to inspection Skin: No rashes noted, no lesions or wounds seen Psych: mood and affect congruent Objective Data Vital Signs Vital Signs: Vital Signs - 24 hr 02/10/22 20:30 02/10/22 20:51 02/10/22 20:45 Temperature 98.2 F Pulse Rate 94 96 Respiratory Rate 18 20 Blood Pressure 140/48 L Pulse Oximetry 97 95 Oxygen Delivery Nasal Cannula Oxygen Flow Rate 4 02/10/22 21:00 02/10/22 20:00 02/11/22 02:17 Temperature Pulse Rate 99 90 Respiratory Rate 20 18 Blood Pressure Pulse Oximetry 97 Oxygen Delivery Nasal Cannula Oxygen Flow Rate 4 02/11/22 04:30 02/11/22 05:15 02/11/22 08:34 Temperature 98.7 F Pulse Rate 94 89 87 Respiratory Rate 18 18 18 Blood Pressure 127/54 L Pulse Oximetry 100 Oxygen Delivery Oxygen Flow Rate 02/11/22 08:36 02/11/22 08:45 02/11/22 09:25 Temperature Pulse Rate 92 Respiratory Rate 18 Blood Pressure Pulse Oximetry 96 98 Oxygen Delivery Nasal Cannula Nasal Cannula Oxygen Flow Rate 4 4 02/11/22 12:50 02/11/22 13:04 02/11/22 14:16 Temperature 97 F L Pulse Rate 89 92 94 Respiratory Rate 18 18 18 Blood Pressure 149/56 H Pulse Oximetry 96 Oxygen Delivery Oxygen Flow Rate 02/11/22 16:20 02/11/22 16:42 Temperature Pulse Rate 88 90 Respiratory Rate 16 16 Blood Pressure Pulse Oximetry Oxygen Delivery Oxygen Flow Rate Intake/Output Intake/Output: Intake & Output 02/08/22 02/09/22 02/10/22 02/11/22 23:59 23:59 23:59 23:59 Intake Total 1120 1150 1860 890 Output Total 900 1350 2025 1400 Balance 220 200 -165 -134 Meds/Results Medications: Active Medications Generic Name Dose Route Start Last Admin Trade Name Freq PRN Reason Stop Dose Admin Acetaminophen 650 mg 02/03/22 23:30 Acetaminophen 325 Mg Tablet PO QID PRN Mild Pain (Scale Score 1-3) Albuterol 2.
[2022-02-11] MEDS: ATORVASTATIN 10 MG TABLET PO (19:55)
[2022-02-11] MEDS: TAMSULOSIN HCL 0.4 MG CAPSULE PO (19:55)
[2022-02-11] MEDS: LATANOPROST 0.005% OP SOLN 2.5 ML BTL 1 DROP EACH EYE (19:55)
[2022-02-11] MEDS: MELATONIN 3 MG TABLET 9 MG PO (22:08)
[2022-02-12] VITALS (18 sets, daily range): BP systolic 123–155; BP diastolic 50–65; PULSE 81–101; RESP 16–24; TEMP 36.6–37; O2SAT 93–100
[2022-02-12] MEDS: ALBUTEROL SULFATE NEB 2.5 MG/3 ML INH INHALATION ×6 (00:40→21:02)
[2022-02-12] MEDS: IPRATROPIUM BR 0.02% INH SOLN 0.5 MG/2.5 ML VIAL INHALATION ×6 (00:41→21:02)
[2022-02-12] MEDS: ACETAMINOPHEN 325 MG TABLET 650 MG PO (05:32)
[2022-02-12 05:53] LABS: Basophils Percent Auto 0.3 % (0.2-1.2); Eosinophils Absolute Auto 0.2 K/mm3 (0-0.3); Eosinophils Percent Auto 3.2 % (0-4.4); Hematocrit 24.5 % (42.0-52.0); Hemoglobin 7.9 g/dL (14.0-18.0); Immature Granulocyte Absolute 0.02 K/mm3 (0.00-0.031); Immature Granulocyte Percent A 0.3 % (0-0.5); Lymphocytes Absolute Auto 0.79 K/mm3 (0.9-3.2); Lymphocytes Percent Auto 12.1 % (18.3-44.2); Mean Corpuscular HGB Conc 32.2 g/dl (32-36); Mean Corpuscular Hemoglobin 29.6 pg (26-34); Mean Corpuscular Volume 91.8 fl (80-100); Monocytes Absolute Auto 0.7 K/mm3 (0.1-0.6); Monocytes Percent Auto 10.3 % (2.6-8.5); Neutrophils Absolute Auto 4.8 K/mm3 (1.3-6.7); Neutrophils Percent Auto 73.8 % (45.5-73.1); Platelet Count Result 204 k/mm3 (150-375); Red Blood Count 2.67 M/mm3 (4.6-6.20); Red Cell Distribution Width 13.8 % (11.5-14.5); White Blood Count 6.5 K/mm3 (4.5-10.0)
[2022-02-12 05:57] LABS: Anion Gap 6 mmol/L (8-16); Blood Urea Nitrogen 7 mg/dL (9-20); Carbon Dioxide 33 mmol/L (22-30); Chloride 91 mmol/L (98-107); Estimated CRCL calculation 129 ml/min; Estimated Glomerular Filt Rate > 60; Glucose 105 mg/dL (65-110); Sodium 130 mmol/L (137-145)
[2022-02-12] MEDS: CENTRAL LINE FLUSH 10 ML IV PUSH ×3 (06:46→20:47)
[2022-02-12] MEDS: ONDANSETRON INJ 4 MG/2 ML VIAL IV PUSH (08:04)
[2022-02-12] MEDS: ROFLUMILAST 500 MCG TABLET PO (08:05)
[2022-02-12] MEDS: ENOXAPARIN 40 MG/0.4 ML SYRINGE SUB-Q (08:05)
[2022-02-12] MEDS: ASPIRIN 81 MG ENTERIC TABLET PO (08:05)
[2022-02-12] MEDS: MULTIVITAMINS THERAPEUTIC TAB (*BKC) 1 TABLET PO (08:05)
[2022-02-12] MEDS: GABAPENTIN 100 MG CAPSULE 200 MG PO ×3 (08:05→16:58)
[2022-02-12] MEDS: PANTOPRAZOLE 40 MG TABLET PO ×2 (08:05→20:47)
[2022-02-12] MEDS: buPROPion HCL XL (24 HR) 150 MG TABCR PO (08:05)
[2022-02-12] MEDS: FLUTICASONE PROPIONATE 0.05% NA SPR 16 GM BTL (*BKC) 1 SPRAY NASAL (08:06)
[2022-02-12] MEDS: FLUTICASONE/SALMETEROL 45-21 MCG INHALER 1 PUFF 2 PUFF INHALATION ×2 (08:37→21:03)
--- NOTE | 2022-02-12 08:45 | PCNWS ---
Weekly nutritional screen. Patient is tolerating current diet with adequate intake. No weight loss reported. No nutritional needs at this time.
--- NOTE | 2022-02-12 14:02 | PM.IMPN ---
Progress Note: A&P Assessment and Plan (1) Acute on chronic respiratory failure with hypoxia and hypercapnia: Code(s): J96.21 - Acute and chronic respiratory failure with hypoxia; J96.22 - Acute and chronic respiratory failure with hypercapnia Status: Acute (2) Chronic anemia: Code(s): D64.9 - Anemia, unspecified Status: Acute (3) Loculated pleural effusion: Code(s): J90 - Pleural effusion, not elsewhere classified Status: Acute (4) Chronic interstitial lung disease: Code(s): J84.9 - Interstitial pulmonary disease, unspecified Status: Acute (5) Chronic obstructive pulmonary disease: Code(s): J44.9 - Chronic obstructive pulmonary disease, unspecified Status: Acute (6) Pneumonia: Code(s): J18.9 - Pneumonia, unspecified organism Status: Acute (7) Hypotension: Code(s): I95.9 - Hypotension, unspecified Status: Acute (8) Hyponatremia: Code(s): E87.1 - Hypo-osmolality and hyponatremia Status: Acute Plan 02/11/22 pt w empyema need CTS consult and possible VATS pt appears stable at this time pulm following, POC reviewed w him today and recs appreciated transfer line contacted to review pt has been maintained on transfer list cont current care will follow up again tomorrow w [facility] and call other hospitals if necessary 02/12/22 [facility] still without bed after 8days pt needs CTS consult for possible Decortication/ VATS call placed to [place] and pt on list waiting transfer cont current care pulm following pt stable for transfer Subjective Date/time seen: 02/12/22 14:02 pt doing ok , agrees to amplify search if [facility] unable to accept him [place] notified and will place pt on wait list Review of Systems Review of Systems: All systems reviewed & are unremarkable except as noted in HPI and below Exam Narrative: General: No acute distress, alert and oriented HEENT: Atraumatic, normocephalic, mucous membranes moist CV: Regular rate and rhythm, S1, S2 Lungs: Clear to auscultation bilaterally, +crackles, no wheezes, decreased air entry noted at bases Abdomen: Soft, nontender, nondistended Extremities: Normal to inspection Skin: No rashes noted, no lesions or wounds seen Psych: mood and affect congruent Objective Data Vital Signs Vital Signs: Vital Signs - 24 hr 02/11/22 14:16 02/11/22 16:20 02/11/22 16:42 Temperature 97 F L Pulse Rate 94 88 90 Respiratory Rate 18 16 16 Blood Pressure 149/56 H Pulse Oximetry 96 Oxygen Delivery Oxygen Flow Rate 02/11/22 19:53 02/11/22 20:13 02/11/22 20:25 Temperature 98.2 F Pulse Rate 93 84 88 Respiratory Rate 16 20 22 H Blood Pressure 145/41 H Pulse Oximetry 96 Oxygen Delivery Oxygen Flow Rate 02/11/22 20:00 02/12/22 00:40 02/12/22 00:40 Temperature Pulse Rate 88 101 H 98 Respiratory Rate 22 H 20 20 Blood Pressure Pulse Oximetry 96 94 Oxygen Delivery Nasal Cannula Nasal Cannula Oxygen Flow Rate 4 3 02/12/22 00:55 02/12/22 04:36 02/12/22 04:50 Temperature Pulse Rate 101 H 98 99 Respiratory Rate 22 H 18 18 Blood Pressure Pulse Oximetry Oxygen Delivery Oxygen Flow Rate 02/12/22 05:31 02/12/22 08:30 02/12/22 08:30 Temperature 97.8 F Pulse Rate 98 101 H 101 H Respiratory Rate 16 24 H Blood Pressure 155/65 H Pulse Oximetry 93 93 Oxygen Delivery Nasal Cannula Oxygen Flow Rate 3 02/12/22 08:40 02/12/22 08:05 02/12/22 13:33 Temperature Pulse Rate 97 89 Respiratory Rate 20 20 Blood Pressure Pulse Oximetry 95 Oxygen Delivery Nasal Cannula Oxygen Flow Rate 4 02/12/22 13:41 Temperature Pulse Rate 86 Respiratory Rate 20 Blood Pressure Pulse Oximetry Oxygen Delivery Oxygen Flow Rate Intake/Output Intake/Output: Intake & Output 02/09/22 02/10/22 02/11/22 02/12/22 23:59 23:59 23:59 23:59 Intake Total 1150 1860 1880 732 Output Total
[2022-02-12] MEDS: LATANOPROST 0.005% OP SOLN 2.5 ML BTL 1 DROP EACH EYE (20:47)
[2022-02-12] MEDS: TAMSULOSIN HCL 0.4 MG CAPSULE PO (20:47)
[2022-02-12] MEDS: ATORVASTATIN 10 MG TABLET PO (20:47)
[2022-02-12] MEDS: MELATONIN 3 MG TABLET 9 MG PO (22:52)
[2022-02-12 23:37] LABS: SARS-CoV-2 RNA PCR Negative
[2022-02-13] VITALS (19 sets, daily range): BP systolic 121–140; BP diastolic 48–54; PULSE 81–93; RESP 16–20; TEMP 36.2–36.8; O2SAT 94–100
[2022-02-13] MEDS: ALBUTEROL SULFATE NEB 2.5 MG/3 ML INH INHALATION ×6 (00:25→20:47)
[2022-02-13] MEDS: IPRATROPIUM BR 0.02% INH SOLN 0.5 MG/2.5 ML VIAL INHALATION ×6 (00:25→20:46)
[2022-02-13 05:07] LABS: Basophils Percent Auto 0.3 % (0.2-1.2); Eosinophils Absolute Auto 0.2 K/mm3 (0-0.3); Eosinophils Percent Auto 2.5 % (0-4.4); Hematocrit 24.2 % (42.0-52.0); Hemoglobin 7.6 g/dL (14.0-18.0); Immature Granulocyte Absolute 0.02 K/mm3 (0.00-0.031); Immature Granulocyte Percent A 0.3 % (0-0.5); Lymphocytes Absolute Auto 1.04 K/mm3 (0.9-3.2); Lymphocytes Percent Auto 14.5 % (18.3-44.2); Mean Corpuscular HGB Conc 31.4 g/dl (32-36); Mean Corpuscular Volume 92.4 fl (80-100); Mean Platelet Volume 8.1 fl (7.4-10.4); Monocytes Absolute Auto 0.9 K/mm3 (0.1-0.6); Monocytes Percent Auto 12.6 % (2.6-8.5); Neutrophils Percent Auto 69.8 % (45.5-73.1); Platelet Count Result 211 k/mm3 (150-375); Red Blood Count 2.62 M/mm3 (4.6-6.20); Red Cell Distribution Width 13.8 % (11.5-14.5); White Blood Count 7.2 K/mm3 (4.5-10.0)
[2022-02-13 05:21] LABS: Anion Gap 5 mmol/L (8-16); Blood Urea Nitrogen 6 mg/dL (9-20); Calcium 8.6 mg/dL (8.4-10.2); Carbon Dioxide 34 mmol/L (22-30); Chloride 91 mmol/L (98-107); Estimated CRCL calculation 157 ml/min; Estimated Glomerular Filt Rate > 60; Glucose 109 mg/dL (65-110); Sodium 130 mmol/L (137-145)
[2022-02-13] MEDS: CENTRAL LINE FLUSH 10 ML IV PUSH ×3 (06:05→21:37)
[2022-02-13] MEDS: FLUTICASONE/SALMETEROL 45-21 MCG INHALER 1 PUFF 2 PUFF INHALATION ×2 (08:24→20:47)
[2022-02-13] MEDS: ENOXAPARIN 40 MG/0.4 ML SYRINGE SUB-Q (09:04)
[2022-02-13] MEDS: FLUTICASONE PROPIONATE 0.05% NA SPR 16 GM BTL (*BKC) 1 SPRAY NASAL (09:04)
[2022-02-13] MEDS: ASPIRIN 81 MG ENTERIC TABLET PO (09:04)
[2022-02-13] MEDS: GABAPENTIN 100 MG CAPSULE 200 MG PO ×3 (09:05→16:44)
[2022-02-13] MEDS: buPROPion HCL XL (24 HR) 150 MG TABCR PO (09:05)
[2022-02-13] MEDS: ROFLUMILAST 500 MCG TABLET PO (09:07)
[2022-02-13] MEDS: MULTIVITAMINS THERAPEUTIC TAB (*BKC) 1 TABLET PO (09:07)
[2022-02-13] MEDS: PANTOPRAZOLE 40 MG TABLET PO ×2 (09:07→21:34)
--- NOTE | 2022-02-13 09:11 | PM.TDS ---
Transfer Discharge Sum: Prov Provider Date of admission: 02/03/22 17:12 Primary care physician: Wild Buenrostro, Admitting clinician: Wellington Morales MD Consults: 02/03/22 Consult to Physician Routine Comment: Consulting Provider: Latonia Cope scallop cutter/MD group to consult: Anatoliy Reason for consultation: acute.chronic respiratory failure, CHF, hypotension Has provider been notified: Yes Consult to Physician Routine Comment: Consulting Provider: Casper Villafana scallop cutter/MD group to consult: Dr. Donaldson Reason for consultation: acute/chronic resp failure Has provider been notified: Yes Transfer Discharge Sum: Med Medications Active and Home Medications: Home Medications acetaminophen 325 mg tablet 650 mg PO QID PRN Mild Pain (Scale Score 1-4) 01/24/20 [History Confirmed 02/03/22] atorvastatin 10 mg tablet 10 mg PO HS 01/24/20 [History Confirmed 02/03/22] diphenhydramine HCl 25 mg tablet (Benadryl Allergy) 25 mg PO BID PRN Allergy Symptoms 01/24/20 [History Confirmed 02/03/22] multivitamin 1 tablet PO DAILY 01/24/20 [History Confirmed 02/03/22] tamsulosin 0.4 mg capsule 0.4 mg PO HS 01/24/20 [History Confirmed 02/03/22] triamcinolone acetonide 0.1 % topical cream 1 applic topical BID PRN Skin Irritation 01/24/20 [History Confirmed 02/03/22] gabapentin 100 mg capsule 200 mg PO TID 02/10/20 [History Confirmed 02/03/22] melatonin 3 mg tablet 9 mg PO HS PRN Insomnia 03/26/20 [History Confirmed 02/03/22] aluminum-mag hydroxide-simethicone 200 mg-200 mg-20 mg/5 mL oral susp 30 ml PO Q4H PRN Indigestion 04/03/20 [History Confirmed 02/03/22] bisacodyl 10 mg rectal suppository (Dulcolax (bisacodyl)) 10 mg RECTAL DAILY PRN Constipation 04/03/20 [History Confirmed 02/03/22] bupropion HCl 150 mg 24 hr tablet, extended release 150 mg PO DAILY 04/03/20 [History Confirmed 02/03/22] diclofenac sodium 75 mg tablet,delayed release 75 mg PO BID 04/03/20 [History Confirmed 02/03/22] latanoprost 0.005 % eye drops 1 drp ophthalmic (eye) HS 04/03/20 [History Confirmed 02/03/22] magnesium hydroxide 400 mg/5 mL oral suspension (Milk of Magnesia) 400 mg PO DAILY PRN Constipation 04/03/20 [History Confirmed 02/03/22] roflumilast 500 mcg tablet 500 mcg PO DAILY #30 tabs 07/29/20 [Rx Confirmed 02/03/22] lisinopril 20 mg tablet 20 mg PO DAILY #90 tabs 04/02/21 [Rx Confirmed 02/03/22] albuterol sulfate 90 mcg/actuation aerosol inhaler 2 puff inhalation Q4H PRN Wheezing 02/03/22 [History Confirmed 02/03/22] amlodipine 10 mg tablet 10 mg PO DAILY 02/03/22 [History Confirmed 02/03/22] aspirin 81 mg tablet,delayed release 81 mg PO DAILY 02/03/22 [History Confirmed 02/03/22] brinzolamide 1 %-brimonidine 0.2 % eye drops,suspension (Simbrinza) 1 drp EACH EYE TID 02/03/22 [History Confirmed 02/03/22] carvedilol 3.125 mg tablet 3.125 mg PO BID 02/03/22 [History Confirmed 02/03/22] fluticasone propionate 45 mcg-salmeterol 21 mcg/actuation HFA inhaler (Advair HFA) 2 inh inhalation BID 02/03/22 [History Confirmed 02/05/22] fluticasone propionate 50 mcg/actuation nasal spray,suspension 1 spray intranasal DAILY 02/03/22 [History Confirmed 02/03/22] hydrocodone 5 mg-acetaminophen 325 mg tablet 1 - 2 tablet PO Q4H PRN Pain 02/03/22 [History Confirmed 02/03/22] ipratropium 0.5 mg-albuterol 3 mg (2.5 mg base)/3 mL nebulization soln 3 ml inhalation Q6H PRN Dyspnea 02/03/22 [History Confirmed 02/03/22] linezolid 600 mg tablet 600 mg PO Q12H 02/03/22 [History Confirmed 02/03/22] omeprazole 20 mg capsule,delayed release 20 mg PO DAILY 02/03/22 [History Confirmed 02/03/22] Active Medications Acetaminophen (Acetaminophen 325 Mg Tablet) 650 mg PO QID PRN PRN Reason: Mild Pain (Scale Score 1-3) Last Admin: 02/12/22 05:32 Dose: 650 mg Albuterol (Albuterol Sulfate Neb 2.5 Mg/3 Ml Inh) 2.5 mg INHALATION Q4HRT [facility] Last Admin: 02/13/22 08:24 Dose: 2.5 mg Aspirin (Aspirin 81 Mg Enteric Tablet) 81 mg PO DAILY [facility] Last Admin: 02/13/22 09:04 Dose: 81 mg
--- NOTE | 2022-02-13 15:36 | PM.IMPN ---
Progress Note: A&P Assessment and Plan (1) Acute on chronic respiratory failure with hypoxia and hypercapnia: Code(s): J96.21 - Acute and chronic respiratory failure with hypoxia; J96.22 - Acute and chronic respiratory failure with hypercapnia Status: Acute (2) Chronic anemia: Code(s): D64.9 - Anemia, unspecified Status: Acute (3) Loculated pleural effusion: Code(s): J90 - Pleural effusion, not elsewhere classified Status: Acute (4) Chronic interstitial lung disease: Code(s): J84.9 - Interstitial pulmonary disease, unspecified Status: Acute (5) Chronic obstructive pulmonary disease: Code(s): J44.9 - Chronic obstructive pulmonary disease, unspecified Status: Acute (6) Pneumonia: Code(s): J18.9 - Pneumonia, unspecified organism Status: Acute (7) Hypotension: Code(s): I95.9 - Hypotension, unspecified Status: Acute (8) Hyponatremia: Code(s): E87.1 - Hypo-osmolality and hyponatremia Status: Acute Plan 02/11/22 pt w empyema need CTS consult and possible VATS pt appears stable at this time pulm following, POC reviewed w him today and recs appreciated transfer line contacted to review pt has been maintained on transfer list cont current care will follow up again tomorrow w [facility] and call other hospitals if necessary 02/12/22 [facility] still without bed after 8days pt needs CTS consult for possible Decortication/ VATS call placed to [place] [facility] and pt on list waiting transfer cont current care pulm following pt stable for transfer 02/13/22 still waiting for transfer to tertiary care center for CTS eval case reviewed w hydrogenation operator today pt is on wait list at [facility] cont current care remains medically stable for transfer Subjective Date/time seen: 02/13/22 15:36 doing ok waiting for bed at [place] [facility] Review of Systems Review of Systems: All systems reviewed & are unremarkable except as noted in HPI and below Exam Narrative: General: No acute distress, alert and oriented HEENT: Atraumatic, normocephalic, mucous membranes moist CV: Regular rate and rhythm, S1, S2 Lungs: Clear to auscultation bilaterally, +crackles, no wheezes, decreased air entry noted at bases Abdomen: Soft, nontender, nondistended Extremities: thenar wasting, DROM, decreased strength Skin: No rashes noted, no lesions or wounds seen Psych: mood and affect congruent Objective Data Vital Signs Vital Signs: Vital Signs - 24 hr 02/12/22 16:58 02/12/22 17:05 02/12/22 20:38 Temperature 98.6 F Pulse Rate 93 90 81 Respiratory Rate 20 20 18 Blood Pressure 123/50 L Pulse Oximetry 100 Oxygen Delivery Oxygen Flow Rate 02/12/22 21:00 02/12/22 21:08 02/12/22 21:09 Temperature Pulse Rate 87 91 Respiratory Rate 20 20 Blood Pressure Pulse Oximetry 94 Oxygen Delivery Nasal Cannula Oxygen Flow Rate 3 02/12/22 20:00 02/13/22 00:25 02/13/22 00:35 Temperature Pulse Rate 91 87 90 Respiratory Rate 20 20 20 Blood Pressure Pulse Oximetry 94 Oxygen Delivery Nasal Cannula Oxygen Flow Rate 4 02/13/22 04:15 02/13/22 04:27 02/13/22 04:34 Temperature 98.3 F Pulse Rate 89 91 93 Respiratory Rate 20 20 18 Blood Pressure 140/54 L Pulse Oximetry 100 Oxygen Delivery Oxygen Flow Rate 02/13/22 08:05 02/13/22 08:15 02/13/22 09:06 Temperature Pulse Rate 86 85 Respiratory Rate 18 18 Blood Pressure Pulse Oximetry 97 Oxygen Delivery Nasal Cannula Oxygen Flow Rate 3.5 02/13/22 13:38 02/13/22 13:40 02/13/22 13:58 Temperature 98.1 F Pulse Rate 81 82 84 Respiratory Rate 16 18 18 Blood Pressure 121/50 L Pulse Oximetry 98 Oxygen Delivery Oxygen Flow Rate 02/13/22 14:01 Temperature 97.4 F L Pulse Rate 81 Respiratory Rate 18 Blood Pressure 130/48 L Pulse Oximetry 100 Oxygen Delivery Oxygen Flow Rate Intake/Output Intake/Output: In
[2022-02-13] MEDS: ATORVASTATIN 10 MG TABLET PO (21:34)
[2022-02-13] MEDS: TAMSULOSIN HCL 0.4 MG CAPSULE PO (21:34)
[2022-02-13] MEDS: LATANOPROST 0.005% OP SOLN 2.5 ML BTL 1 DROP EACH EYE (21:35)
[2022-02-13] MEDS: MELATONIN 3 MG TABLET 9 MG PO (21:37)
[2022-02-14] VITALS (8 sets, daily range): BP systolic 135; BP diastolic 51; PULSE 90–98; RESP 12–18; TEMP 36.9; O2SAT 92
[2022-02-14] MEDS: ALBUTEROL SULFATE NEB 2.5 MG/3 ML INH INHALATION ×2 (00:09→04:52)
[2022-02-14] MEDS: IPRATROPIUM BR 0.02% INH SOLN 0.5 MG/2.5 ML VIAL INHALATION ×3 (00:10→10:01)
[2022-02-14] MEDS: CENTRAL LINE FLUSH 10 ML IV PUSH (05:50)
[2022-02-14 05:58] LABS: Basophils Percent Auto 0.3 % (0.2-1.2); Eosinophils Absolute Auto 0.1 K/mm3 (0-0.3); Hematocrit 24.4 % (42.0-52.0); Hemoglobin 7.7 g/dL (14.0-18.0); Immature Granulocyte Absolute 0.02 K/mm3 (0.00-0.031); Immature Granulocyte Percent A 0.3 % (0-0.5); Lymphocytes Percent Auto 12.9 % (18.3-44.2); Mean Corpuscular HGB Conc 31.6 g/dl (32-36); Mean Corpuscular Hemoglobin 28.9 pg (26-34); Mean Corpuscular Volume 91.7 fl (80-100); Monocytes Absolute Auto 0.9 K/mm3 (0.1-0.6); Monocytes Percent Auto 12.7 % (2.6-8.5); Neutrophils Percent Auto 71.8 % (45.5-73.1); Platelet Count Result 227 k/mm3 (150-375); Red Blood Count 2.66 M/mm3 (4.6-6.20); Red Cell Distribution Width 13.9 % (11.5-14.5)
[2022-02-14 06:08] LABS: Anion Gap 6 mmol/L (8-16); Blood Urea Nitrogen 6 mg/dL (9-20); Carbon Dioxide 32 mmol/L (22-30); Chloride 91 mmol/L (98-107); Estimated CRCL calculation 157 ml/min; Estimated Glomerular Filt Rate > 60; Glucose 110 mg/dL (65-110); Potassium 3.8 mmol/L (3.4-5.0); Sodium 129 mmol/L (137-145)
[2022-02-14] MEDS: ONDANSETRON INJ 4 MG/2 ML VIAL IV PUSH (08:23)
[2022-02-14] MEDS: FLUTICASONE PROPIONATE 0.05% NA SPR 16 GM BTL (*BKC) 1 SPRAY NASAL (08:29)
[2022-02-14] MEDS: ENOXAPARIN 40 MG/0.4 ML SYRINGE SUB-Q (08:30)
[2022-02-14] MEDS: MULTIVITAMINS THERAPEUTIC TAB (*BKC) 1 TABLET PO (08:30)
[2022-02-14] MEDS: GABAPENTIN 100 MG CAPSULE 200 MG PO ×2 (08:30→12:20)
[2022-02-14] MEDS: ROFLUMILAST 500 MCG TABLET PO (08:30)
[2022-02-14] MEDS: PANTOPRAZOLE 40 MG TABLET PO (08:30)
[2022-02-14] MEDS: buPROPion HCL XL (24 HR) 150 MG TABCR PO (08:30)
[2022-02-14] MEDS: ASPIRIN 81 MG ENTERIC TABLET PO (08:30)
--- NOTE | 2022-02-14 09:15 | PM.IMPN ---
Progress Note: A&P Assessment and Plan (1) Acute on chronic respiratory failure with hypoxia and hypercapnia: Code(s): J96.21 - Acute and chronic respiratory failure with hypoxia; J96.22 - Acute and chronic respiratory failure with hypercapnia Status: Acute (2) Chronic anemia: Code(s): D64.9 - Anemia, unspecified Status: Acute (3) Loculated pleural effusion: Code(s): J90 - Pleural effusion, not elsewhere classified Status: Acute (4) Chronic interstitial lung disease: Code(s): J84.9 - Interstitial pulmonary disease, unspecified Status: Acute (5) Chronic obstructive pulmonary disease: Code(s): J44.9 - Chronic obstructive pulmonary disease, unspecified Status: Acute (6) Pneumonia: Code(s): J18.9 - Pneumonia, unspecified organism Status: Acute (7) Hypotension: Code(s): I95.9 - Hypotension, unspecified Status: Acute (8) Hyponatremia: Code(s): E87.1 - Hypo-osmolality and hyponatremia Status: Acute Plan 02/11/22 pt w empyema need CTS consult and possible VATS pt appears stable at this time pulm following, POC reviewed w him today and recs appreciated transfer line contacted to review pt has been maintained on transfer list cont current care will follow up again tomorrow w [facility] and call other hospitals if necessary 02/12/22 [facility] still without bed after 8days pt needs CTS consult for possible Decortication/ VATS call placed to [facility] and pt on list waiting transfer cont current care pulm following pt stable for transfer 02/13/22 still waiting for transfer to tertiary care center for CTS eval case reviewed w shoe puller today pt is on wait list at [facility] cont current care remains medically stable for transfer 02/14/22 dulcolax and mag citrate hydrocortisone cream cont current care pending transfer to [facility] Subjective Date/time seen: 02/14/22 09:15 pt complains of constipation and itchy face rash Review of Systems Review of Systems: All systems reviewed & are unremarkable except as noted in HPI and below Exam Narrative: General: No acute distress, alert and oriented HEENT: Atraumatic, normocephalic, mucous membranes moist Lungs: symmetric chest rise no use of accessory muscles Abdomen: Soft, nontender, nondistended Extremities: thenar wasting, DROM, decreased strength Skin: No rashes noted, no lesions or wounds seen Psych: mood and affect congruent Objective Data Vital Signs Vital Signs: Vital Signs - 24 hr 02/13/22 13:38 02/13/22 13:40 02/13/22 13:58 Temperature 98.1 F Pulse Rate 81 82 84 Respiratory Rate 16 18 18 Blood Pressure 121/50 L Pulse Oximetry 98 Oxygen Delivery Oxygen Flow Rate 02/13/22 14:01 02/13/22 16:20 02/13/22 16:31 Temperature 97.4 F L Pulse Rate 81 85 84 Respiratory Rate 18 18 18 Blood Pressure 130/48 L Pulse Oximetry 100 Oxygen Delivery Oxygen Flow Rate 02/13/22 16:31 02/13/22 19:41 02/13/22 20:47 Temperature 97.2 F L Pulse Rate 92 90 Respiratory Rate 18 18 Blood Pressure 129/53 L Pulse Oximetry 94 97 Oxygen Delivery Nasal Cannula Oxygen Flow Rate 3 02/13/22 20:50 02/13/22 21:01 02/13/22 20:00 Temperature Pulse Rate 90 88 Respiratory Rate 18 Blood Pressure Pulse Oximetry 96 96 Oxygen Delivery Nasal Cannula Nasal Cannula Oxygen Flow Rate 3 3 02/14/22 00:09 02/14/22 00:19 02/14/22 04:04 Temperature 98.4 F Pulse Rate 90 90 98 Respiratory Rate 18 18 18 Blood Pressure 135/51 L Pulse Oximetry 92 Oxygen Delivery Oxygen Flow Rate 02/14/22 04:53 02/14/22 04:59 Temperature Pulse Rate 96 94 Respiratory Rate 18 18 Blood Pressure Pulse Oximetry Oxygen Delivery Oxygen Flow Rate Intake/Output Intake/Output: Intake & Output 02/11/22 02/12/22 02/13/22 02/14/22 23:59 23:59 23:59 23:59 Intake Total 6240 1532 820 830 Output Total 0044
[2022-02-14] MEDS: ALBUTEROL SULFATE NEB 2.5 MG/0.5 ML INH (10:00)
[2022-02-14] MEDS: FLUTICASONE/SALMETEROL 45-21 MCG INHALER 1 PUFF 2 PUFF INHALATION (10:01)
[2022-02-14] MEDS: BISACODYL 10 MG SUPPOSITORY RECTAL (10:19)
--- NOTE | 2022-02-14 15:13 | PM.TDS ---
Transfer Discharge Sum: Prov Provider Date of admission: 02/03/22 17:12 Primary care physician: Wild Buenrostro, MD Admitting clinician: Wellington Morales MD Consults: 02/03/22 Consult to Physician Routine Comment: Consulting Provider: Latonia Cope bingo caller/MD group to consult: Anatoliy Reason for consultation: acute.chronic respiratory failure, CHF, hypotension Has provider been notified: Yes Consult to Physician Routine Comment: Consulting Provider: Casper Villafana bingo caller/MD group to consult: Dr. Donaldson Reason for consultation: acute/chronic resp failure Has provider been notified: Yes Attending physician on discharge: Yumi Jauregui Discharging clinician: Yumi Jauregui Anticipated date of transfer: 02/14/22 Receiving physician/facility: [facility] DS: Admitting Diagnosis Discharge Date 02/14/22 Admitting Diagnosis (1) Acute on chronic respiratory failure with hypoxia and hypercapnia: ?Code(s): J96.21 - Acute and chronic respiratory failure with hypoxia; J96.22 - Acute and chronic respiratory failure with hypercapnia ?Status:?Acute ?Assessment and Plan: (2) Hypotension: ?Code(s): I95.9 - Hypotension, unspecified ?Status:?Acute ?Assessment and Plan: (3) Chronic anemia: ?Code(s): D64.9 - Anemia, unspecified ?Status:?Acute ?Assessment and Plan: (4) Loculated pleural effusion: ?Code(s): J90 - Pleural effusion, not elsewhere classified ?Status:?Acute (5) Heart failure with preserved ejection fraction: ?Code(s): I50.30 - Unspecified diastolic (congestive) heart failure ?Status:?Acute (6) Hypertension: ?Code(s): I10 - Essential (primary) hypertension ?Status:?Acute ? (7) Chronic obstructive pulmonary disease: ?Code(s): J44.9 - Chronic obstructive pulmonary disease, unspecified ? ? DS: Discharge Diagnosis Discharge Diagnosis (1) Acute on chronic respiratory failure with hypoxia and hypercapnia: Code(s): J96.21 - Acute and chronic respiratory failure with hypoxia; J96.22 - Acute and chronic respiratory failure with hypercapnia Status: Acute (2) Chronic anemia: Code(s): D64.9 - Anemia, unspecified Status: Acute (3) Loculated pleural effusion: Code(s): J90 - Pleural effusion, not elsewhere classified Status: Acute (4) Chronic interstitial lung disease: Code(s): J84.9 - Interstitial pulmonary disease, unspecified Status: Acute (5) Chronic obstructive pulmonary disease: Code(s): J44.9 - Chronic obstructive pulmonary disease, unspecified Status: Acute (6) Pneumonia: Code(s): J18.9 - Pneumonia, unspecified organism Status: Acute (7) Hypotension: Code(s): I95.9 - Hypotension, unspecified Status: Acute (8) Hyponatremia: Code(s): E87.1 - Hypo-osmolality and hyponatremia Status: Acute Transfer Discharge Sum: Med Medications Active and Home Medications: Home Medications acetaminophen 325 mg tablet 650 mg PO QID PRN Mild Pain (Scale Score 1-4) 01/24/20 [History Confirmed 02/03/22] atorvastatin 10 mg tablet 10 mg PO HS 01/24/20 [History Confirmed 02/03/22] diphenhydramine HCl 25 mg tablet (Benadryl Allergy) 25 mg PO BID PRN Allergy Symptoms 01/24/20 [History Confirmed 02/03/22] multivitamin 1 tablet PO DAILY 01/24/20 [History Confirmed 02/03/22] tamsulosin 0.4 mg capsule 0.4 mg PO HS 01/24/20 [History Confirmed 02/03/22] triamcinolone acetonide 0.1 % topical cream 1 applic topical BID PRN Skin Irritation 01/24/20 [History Confirmed 02/03/22] gabapentin 100 mg capsule 200 mg PO TID 02/10/20 [History Confirmed 02/03/22] melatonin 3 mg tablet 9 mg PO HS PRN Insomnia 03/26/20 [History Confirmed 02/03/22] aluminum-mag hydroxide-simethicone 200 mg-200 mg-20 mg/5 mL oral susp 30 ml PO Q4H PRN Indigestion 04/03/20 [History Confirmed 02/03/22] bisacodyl 10 mg rectal suppository (Dulcolax (b
== END 2022-02-14 13:08 | disposition short-term general hospital (02) | DRG 193 ==
LOC: ANHICU 02-05 10:06 → ANH2MED 02-05 17:28
PROVIDERS: Internal Medicine; Physician Assistant; Student in an Organized Health Care Education/Training Program; Admitting Provider Chiropractor; PCP Family Medicine; Visit Provider Hospitalist
DX: J18.9 Pneumonia, unspecified organism (principal); I50.31 Acute diastolic (congestive) heart failure; J96.21 Acute and chronic respiratory failure with hypoxia; J86.9 Pyothorax without fistula; J96.22 Acute and chronic respiratory failure with hypercapnia; J90 Pleural effusion, not elsewhere classified; E87.1 Hypo-osmolality and hyponatremia; E46 Unspecified protein-calorie malnutrition; J98.11 Atelectasis; Z20.822 Contact with and (suspected) exposure to COVID-19; J43.9 Emphysema, unspecified; D63.8 Anemia in other chronic diseases classified elsewhere; F41.9 Anxiety disorder, unspecified; I95.9 Hypotension, unspecified; N40.0 Benign prostatic hyperplasia without lower urinary tract symptoms; F32.A Depression, unspecified; I11.0 Hypertensive heart disease with heart failure; I73.9 Peripheral vascular disease, unspecified; Z87.891 Personal history of nicotine dependence; Z99.81 Dependence on supplemental oxygen; Z68.24 Body mass index [BMI] 24.0-24.9, adult; Z87.09 Personal history of other diseases of the respiratory system
CPT/HCPCS: 36415; 36600; 71045; 71046; 71275; 80048; 80053; 82274; 82375; 82607; 82746; 82805; 83050; 83540; 83550; 83605; 83735; 83880; 84100; 84145; 84443; 85025; 85027; 86140; 87040; 87070; 87205; 93970; 94640; 94667; 94668; A9270; C9803; J1650; J1940; J2405; J2920; J7030; Q9967; U0003; U0005

== ENCOUNTER 2022-05-20 17:32 | Inpatient (IN) | payer OTHER, MEDICAID, SELFPAY ==
[2022-05-20] VITALS (51 sets, daily range): BP systolic 59–134; BP diastolic 36–65; PULSE 77–118; RESP 15–29; TEMP 37.3–38; O2SAT 80–100
--- NOTE | ~2022-05-20 | CT_ITS ---
EXAMINATION: CTA chest PE protocol DATE: 05/20/2022 21:36 INDICATION: rule out PE, recent long hospitalization, Dyspnea TECHNIQUE: Computed tomography angiography (CTA) of the chest was performed with 100 mL Omnipaque-350 intravenous contrast timed to evaluate the pulmonary arteries. Coronal maximum intensity projection 3D-reconstructions were created by the technologist. The dose-length product (DLP) was 558.02 mGy-cm. Automated exposure control and iterative reconstruction technique were employed. COMPARISON: None. FINDINGS: Lung parenchyma and airways: Severe emphysematous change. Diffuse groundglass opacity in the less inv olved areas of pulmonary parenchyma. The airways are clear. Pleura: Right upper lung pleural thickening. Loculated small right pleural effusion. Trace left pleur al fluid. Thoracic inlet, axillae and chest wall: Unremarkable. Thoracic aorta: Moderate arch calcification. Mediastinum: Mediastinal and hilar lymphadenopathy. Dilated central pulmonary arteries as can be seen with pulmonary arterial hypertension. Heart and pericardium: Cardiomegaly. Coronary artery calcifications: Heavy. Upper abdomen: No significant finding. Bones: No acute osseous finding. Pulmonary arteries: Study quality: Adequate enhancement and phase, significant motion artifact, parti cularly in the lower lungs. No pulmonary emboli detected. IMPRESSION: Respiratory motion moderately limits the study, particularly in the lower lobes. Within that constrai nt, no definite pulmonary embolus detected. Severe emphysematous change. Diffuse groundglass opacitie s may represent interstitial edema and/or atypical infection. Small volume loculated right pleural ef fusion. Reviewed, dictated and finalized at location K. ER ATTENDANT IMPRESSION: Respiratory motion moderately limits the study, particularly in the lower lobes . Within that constraint, no definite pulmonary embolus detected. Severe emphys ematous change. Diffuse groundglass opacities may represent interstitial edema and/or atypical infection. Small volume loculated right pleural effusion.
--- NOTE | ~2022-05-20 | XR_ITS ---
EXAMINATION: XR chest 1V portable Exam Date/Time: 05/20/2022 18:10 GLASS PRODUCTS INSPECTOR HISTORY: dyspnea Comparison: 02/12/2022. RESULT: Lines, tubes, and devices: Incompletely visualized cervical fusion hardware. Interval right upper ex tremity PICC removal. Lungs and pleura: Ill-defined peripheral reticular and groundglass opacities worse in the right lung , but overall improved from the prior study. Persistent right lateral costophrenic angle blunting, sl ightly decreased from the prior study. Cardiomediastinal silhouette: Stable. Other: No acute osseous or upper abdominal finding. IMPRESSION: No definite acute cardiopulmonary process. Pulmonary opacities likely represent chronic emphysematous and/or interstitial change with a small right pleural effusion versus chronic pleural scarring. Reviewed, dictated and finalized at location K. S PRODUCTS INSPECTOR IMPRESSION: No definite acute cardiopulmonary process. Pulmonary opacities likely represent chronic emphysematous and/or interstitial change with a small right pleural ef fusion versus chronic pleural scarring.
--- NOTE | 2022-05-20 17:47 | ED.SOB ---
HPI - SOB/Dyspnea General Chief Complaint: Shortness of Breath/Dyspnea Stated Complaint: fever Time Seen by Provider: 05/20/22 17:47 Source: patient and EMS Mode of arrival: EMS Limitations: no limitations History of Present Illness HPI Narrative: The patient is a 66 yo male with complicated medical history including chronic respiratory failure on 3 L nasal cannula, COPD/ILD, hypertension, peripheral vascular disease,with recent transfer from this facility to [facility] for right lower lobe loculated empyema, [facility]. Patient denies any acute complaints. He states that his temperature was taken at the care facility this evening and he was noted to be febrile, thus he was transferred out for evaluation. Patient denies any headache, chest pain, worsening shortness of breath. He reports chronic history of COPD but does not report increasing oxygen requirement. He denies leg swelling or calf pain. He denies cough, wheezing, rhinorrhea, congestion, sore throat. He denies any abdominal pain, nausea or vomiting. Reviewed patient's recent admission to this facility and ultimate transfer to [facility] for loculated empyema. Related Data Home Medications Medication Instructions Recorded Confirmed acetaminophen 325 mg tablet 650 mg PO QID PRN Mild Pain (Scale 01/24/20 02/03/22 Score 1-4) atorvastatin 10 mg tablet 10 mg PO HS 01/24/20 02/03/22 diphenhydramine HCl 25 mg tablet 25 mg PO BID PRN Allergy Symptoms 01/24/20 02/03/22 (Benadryl Allergy) multivitamin 1 tablet PO DAILY 01/24/20 02/03/22 tamsulosin 0.4 mg capsule 0.4 mg PO HS 01/24/20 02/03/22 triamcinolone acetonide 0.1 % 1 applic topical BID PRN Skin 01/24/20 02/03/22 topical cream Irritation gabapentin 100 mg capsule 200 mg PO TID 02/10/20 02/03/22 melatonin 3 mg tablet 9 mg PO HS PRN Insomnia 03/26/20 02/03/22 aluminum-mag hydroxide-simethicone 30 ml PO Q4H PRN Indigestion 04/03/20 02/03/22 200 mg-200 mg-20 mg/5 mL oral susp bisacodyl 10 mg rectal suppository 10 mg RECTAL DAILY PRN Constipation 04/03/20 02/03/22 (Dulcolax (bisacodyl)) bupropion HCl 150 mg 24 hr tablet, 150 mg PO DAILY 04/03/20 02/03/22 extended release diclofenac sodium 75 mg 75 mg PO BID 04/03/20 02/03/22 tablet,delayed release latanoprost 0.005 % eye drops 1 drp ophthalmic (eye) HS 04/03/20 02/03/22 magnesium hydroxide 400 mg/5 mL 400 mg PO DAILY PRN Constipation 04/03/20 02/03/22 oral suspension (Milk of Magnesia) albuterol sulfate 90 mcg/actuation 2 puff inhalation Q4H PRN Wheezing 02/03/22 02/03/22 aerosol inhaler amlodipine 10 mg tablet 10 mg PO DAILY 02/03/22 02/03/22 aspirin 81 mg tablet,delayed 81 mg PO DAILY 02/03/22 02/03/22 release brinzolamide 1 %-brimonidine 0.2 % 1 drp EACH EYE TID 02/03/22 02/03/22 eye drops,suspension (Simbrinza) carvedilol 3.125 mg tablet 3.125 mg PO BID 02/03/22 02/03/22 fluticasone propionate 45 2 inh inhalation BID 02/03/22 02/05/22 mcg-salmeterol 21 mcg/actuation HFA inhaler (Advair HFA) fluticasone propionate 50 1 spray intranasal DAILY 02/03/22 02/03/22 mcg/actuation nasal spray,suspension hydrocodone 5 mg-acetaminophen 325 1 - 2 tablet PO Q4H PRN Pain 02/03/22 02/03/22 mg tablet ipratropium 0.5 mg-albuterol 3 mg 3 ml inhalation Q6H PRN Dyspnea 02/03/22 02/03/22 (2.5 mg base)/3 mL nebulization soln linezolid 600 mg tablet 600 mg PO Q12H 02/03/22 02/03/22 omeprazole 20 mg capsule,delayed 20 mg PO DAILY 02/03/22 02/03/22 release Allergies Allergy/AdvReac Type Severity Reaction Status Date / Time No Known Allergies Allergy Verified 03/18/21 11:18 Review of Systems Review of Systems: CONSTITUTIONAL: Denies subjective fever, chills, or sweats. EYES: Denies visual changes, redness, or discharge. ENT: Denies rhinorrhea, congestion, sore throat, or otalgia. CARDIOVASCULAR: Denies chest pain, palpitations, or edema. RESPIRATORY: Reports chronic cough, denies wors
--- NOTE | 2022-05-20 17:48 | ECG_ITS ---
Measurements Intervals [place] Rate: 98 P: 63 WI: 190 QRS: 73 QRSD: 101 T: 71 QT: 320 QTc: 410 Interpretive Statements SINUS RHYTHM POSSIBLE LEFT ATRIAL ENLARGEMENT [-0.1mV P WAVE IN V1/V2] COMPARED TO ECG 04/03/2020 08:51:11 NO SIGNIFICANT CHANGES Electronically Signed On 05-21-2022 11:43:23 PULMONARY PHYSICAL THERAPIST by Fernanda Hodgson M.D.
--- NOTE | 2022-05-20 18:00 | PC.NURSE ---
EDP at bedside to assess pt.
[2022-05-20 18:06] LABS: Hematocrit 33.2 % (42.0-52.0); Hemoglobin 10.6 g/dL (14.0-18.0); Mean Corpuscular HGB Conc 31.9 g/dl (32-36); Mean Corpuscular Hemoglobin 27.8 pg (26-34); Mean Corpuscular Volume 87.1 fl (80-100); Mean Platelet Volume 8.3 fl (7.4-10.4); Platelet Count Result 197 k/mm3 (150-375); Red Blood Count 3.81 M/mm3 (4.6-6.20); Red Cell Distribution Width 13.6 % (11.5-14.5); White Blood Count 6.7 K/mm3 (4.5-10.0)
[2022-05-20 18:17] LABS: INR 1.1; Prothrombin Time 13.6 Seconds (11.1-14.7)
[2022-05-20 18:18] LABS: Lactic Acid Reflex 1.1 mmol/L (0.7-2.0); Partial Thromboplastin Time 32.1 SECONDS (22.3-36.8)
[2022-05-20 18:19] LABS: Alanine Aminotransferase 19 U/L (6-50); Albumin Level 4.3 g/dL (3.5-5.1); Alkaline Phosphatase 90 U/L (38-126); Anion Gap 8 mmol/L (8-16); Aspartate Amino Transferase 52 U/L (17-59); Bilirubin,Total 0.2 mg/dL (0.2-1.3); Blood Urea Nitrogen 18 mg/dL (9-20); Calcium 9.1 mg/dL (8.4-10.2); Carbon Dioxide 30 mmol/L (22-30); Chloride 90 mmol/L (98-107); Estimated CRCL calculation 106 ml/min; Estimated Glomerular Filt Rate > 60; Glucose 113 mg/dL (65-110); Potassium 4.2 mmol/L (3.4-5.0); Sodium 128 mmol/L (137-145)
[2022-05-20 18:22] LABS: Lipase 54 U/L (23-300)
[2022-05-20 18:31] LABS: Basophils Absolute Manual 0.06 K/mm3 (0.0-0.1); Basophils Percent Manual 1 % (0-1); Lymphocytes Absolute Manual 0.13 K/mm3 (1.1-4.5); Monocytes Absolute Manual 0.46 K/mm3 (0.1-0.90); Monocytes Percent Manual 7 % (3-9); Neutrophils Percent Manual 90 % (46-73); Schistocytes None Seen (NORMAL); Total Cells Counted 100
[2022-05-20 18:32] LABS: Hypochromasia 1+ (NORMAL); Platelet Estimate Adequate (Adequate)
[2022-05-20 18:35] LABS: Troponin I < 0.012 ng/mL (0.000-0.034)
[2022-05-20 18:49] LABS: CRP 3.6 mg/dL (<1.0)
[2022-05-20 18:54] LABS: Influenza A QL RT-PCR Positive (Negative); Influenza B QL RT-PCR Negative (Negative); RSV RNA, RT-PCR Negative (Negative); SARS-CoV-2 RNA PCR Negative
[2022-05-20] MEDS: ACETAMINOPHEN 500 MG TABLET 1000 MG PO (18:59)
[2022-05-20] MEDS: ALBUTEROL SULFATE NEB 2.5 MG/3 ML INH 5 MG INHALATION (19:30)
[2022-05-20] MEDS: IPRATROPIUM BR 0.02% INH SOLN 0.5 MG/2.5 ML VIAL INHALATION (19:31)
[2022-05-20 20:05] LABS: Alveolar/Arterial O2 Gradient 113.9 mmHg; Carboxyhemoglobin 0.1 % THb (0-2.0); Fractional Inspired Oxygen 36 %; HCO3 ABG 31.7 mEq/l (22.0-26.0); Methemoglobin ABG 0.3 %THb (0-1.5); Oxygen Content ABG 14.1 %vol (16.0-22.0); Oxygen Saturation ABG 90.8 % (95.0-100.0); Oxyhemoglobin 91.1 % THb (90.0-100.0); PO2 ABG 66.9 mmHg (80.0-100.0); PO2 FiO2 Ratio Arterial Blood 1.86 %; Reduced Hemoglobin 8.5 %THb (0-5.0); pH ABG 7.304 (7.350-7.450)
[2022-05-20 20:08] LABS: Device NASAL CANNULA; Modified Allen's Test Pass; PCO2 ABG 65.4 mmHg (35.0-45.0); Site Drawn LEFT RADIAL
--- NOTE | 2022-05-20 20:12 | PC.NURSE ---
Patient off unit to CT>
[2022-05-20] MEDS: SODIUM CHLORIDE 0.9% IV 1,000 ML 999 ML IV CONT ×2 (20:30→21:57)
--- NOTE | 2022-05-20 21:24 | PC.NURSE ---
Patient off unit to CT.
--- NOTE | 2022-05-20 21:33 | PC.NURSE ---
Talked to Sandhya in lab at 21:32 to add on BNP
[2022-05-20] MEDS: OSELTAMIVIR PHOSPHATE 75 MG CAPSULE PO (21:56)
[2022-05-20] MEDS: SODIUM CHLORIDE 0.9% IV 1,000 ML 150 ML IV CONT (21:56)
[2022-05-20] MEDS: HYDROCORTISONE SODIUM SUCCINATE 100 MG/2 ML VIAL IV PUSH (21:56)
--- NOTE | 2022-05-20 21:57 | PM.IMHP ---
H&P: HPI History of Present Illness Date/Time: 05/20/22 21:57 Chief Complaint: SOB Narrative: This is a 66-year-old male with past medical history significant for COPD / emphysema, chronic hypoxic respiratory failure on 3 L of supplemental oxygen at home chronic interstitial lung disease, chronic low back pain, chronic myelopathy, hypertension, peripheral vascular disease, pulmonary hypertension. Patient just recently discharged from outside hospital after he was treated for empyema. Presents today to the emergency room due to worsening shortness of breath patient require BiPAP he was found to have an elevated CO2 level. at the time of my visit patient is on BiPAP. Preliminary workup was significant for ABG pH is 7.2, pCO2 71, PO2 121. patient tested positive for influenza type A, negative for influenza type B, RSV and COVID, was rule out for PE with a negative CTA. FINDINGS:? Lung parenchyma and airways: Severe emphysematous change. Diffuse groundglass opacity in the less involved areas of pulmonary parenchyma. The airways are clear. Pleura: Right upper lung pleural thickening. Loculated small right pleural effusion. Trace left pleural fluid. Thoracic inlet, axillae and chest wall: Unremarkable. Thoracic aorta: Moderate arch calcification. Mediastinum: Mediastinal and hilar lymphadenopathy. Dilated central pulmonary arteries as can be seen with pulmonary arterial hypertension. Heart and pericardium: Cardiomegaly. Coronary artery calcifications: Heavy. Upper abdomen: No significant finding. Bones: No acute osseous finding. Pulmonary arteries: Study quality: Adequate enhancement and phase, significant motion artifact, particularly in the lower lungs. No pulmonary emboli detected. IMPRESSION: Respiratory motion moderately limits the study, particularly in the lower lobes. Within that constraint, no definite pulmonary embolus detected. Severe emphysematous change. Diffuse groundglass opacities may represent interstitial edema and/or atypical infection. Small volume loculated right pleural effusion. Review of Systems Review of Systems: ROS unobtainable: Yes unobtainable due to medical condition ( patient is on BiPAP) [facility] Past Medical History Medical History Anxiety Benign prostatic hyperplasia Bilateral carotid artery stenosis Chronic anemia Chronic interstitial lung disease Chronic lower back pain Chronic myelopathy Chronic obstructive pulmonary disease Chronic respiratory failure with hypoxia and hypercapnia On 2.5 L nasal cannula. Depression Emphysema of lung Generalized weakness Heart failure with preserved ejection fraction Echocardiogram in January 2022 showed and EF of 65 to 70% with grade 1 diastolic dysfunction. Hypertension Inguinal hernia September 2011 Loculated pleural effusion January 2022 status post chest tube drainage. Culture grew out MRSA. Normocytic anemia Peripheral vascular disease Pneumonia Protein calorie malnutrition Pulmonary hypertension Right lower lobe pulmonary nodule Surgical History Surgical History History of elbow surgery History of inguinal hernia repair History of spinal surgery C3-C6 (C3, 4, and 5 removed and replaced with hardware) post neck injury in April 2003. History of tonsillectomy History of vascular surgery Stents in left lower extremity. Family History Family History Father Family history of malignant neoplasm, Onset Age: 77 Family history of malignant neoplasm of esophagus, Onset Age: 75 Mother Family history of dementia Social History Social History Social History: Surrogate medical decision maker: Johanna Santamaria, sister. Code status: Full code. Smoking packs per day: 1 Smoking cigarettes per day: 20.0 Years s
[2022-05-20 22:07] LABS: NT Pro B Type Natriuretic Pept 175 pg/mL (5-100)
[2022-05-20 22:29] LABS: Alveolar/Arterial O2 Gradient 67.9 mmHg; Base Excess ABG 1.2 mEq/l (+/-2.0); Carboxyhemoglobin 0.3 % THb (0-2.0); Fractional Inspired Oxygen 32 %; HCO3 ABG 29.5 mEq/l (22.0-26.0); Methemoglobin ABG 0.4 %THb (0-1.5); Oxygen Content ABG 12.8 %vol (16.0-22.0); Oxygen Saturation ABG 93.1 % (95.0-100.0); Oxyhemoglobin 92.5 % THb (90.0-100.0); PO2 ABG 78.7 mmHg (80.0-100.0); PO2 FiO2 Ratio Arterial Blood 2.46 %; Reduced Hemoglobin 6.8 %THb (0-5.0); Total Hemoglobin 9.8 g/dL (12.0-18.0)
[2022-05-20 22:31] LABS: Device NASAL CANNULA; Modified Allen's Test Unable to perform; PCO2 ABG 69.7 mmHg (35.0-45.0); Site Drawn LEFT BRACHIAL; pH ABG 7.245 (7.350-7.450)
[2022-05-20 22:33] LABS: Add Urine Microscopic? NO; Appearance Urine Clear (Clear); Bilirubin Urine Negative (Negative); Blood Urine Negative (Negative); Color Urine Yellow (Yellow); Glucose Urine UA Negative (Negative); Ketones Urine Negative (Negative); Leukocyte Esterase Ur Negative LEU/UL (Negative); Nitrate Urine Negative (Negative); Protein Urine Negative (Negative); Specific Grav Ur 1.015 (1.001-1.035); Urobilinogen Urine 0.2 mg/dL (<2.0)
[2022-05-20 22:46] LABS: Mucus Urine Rare /lpf
--- NOTE | 2022-05-20 22:49 | PC.NURSE ---
Patient responding minimally to painful stimuli. Dr. Maciel made aware and repeat blood gas ordered. Patient ultimately placed on BIPAP at 12/5 and rate of 20.
--- NOTE | 2022-05-20 23:09 | PC.NURSE ---
Patient report given to RADHA Mcgrath. All questions answered and care of patient transferred.
[2022-05-21] VITALS (16 sets, daily range): BP systolic 122–175; BP diastolic 52–74; PULSE 73–98; RESP 18–27; TEMP 36.3–37.3; O2SAT 93–99; BMI 20.5
[2022-05-21 00:06] LABS: Alveolar/Arterial O2 Gradient 154.4 mmHg; Base Excess ABG 0.1 mEq/l (+/-2.0); Carboxyhemoglobin 0.3 % THb (0-2.0); Fractional Inspired Oxygen 50 %; HCO3 ABG 28.9 mEq/l (22.0-26.0); Methemoglobin ABG 0.3 %THb (0-1.5); Oxygen Content ABG 13.9 %vol (16.0-22.0); Oxygen Saturation ABG 97.6 % (95.0-100.0); Oxyhemoglobin 96.6 % THb (90.0-100.0); PO2 ABG 121.7 mmHg (80.0-100.0); PO2 FiO2 Ratio Arterial Blood 2.43 %; Reduced Hemoglobin 2.8 %THb (0-5.0); Total Hemoglobin 10.1 g/dL (12.0-18.0)
[2022-05-21 00:08] LABS: Device NON-INVASIVE VENT; Modified Allen's Test Unable to perform; Non-Invasive Expiratory Pressure 5 CMH2O; Non-Invasive Inspiratory Pressure 12 CMH2O; Non-Invasive Vent Rate 20 /MIN; PCO2 ABG 71.5 mmHg (35.0-45.0); Site Drawn LEFT BRACHIAL; pH ABG 7.224 (7.350-7.450)
[2022-05-21 01:00] LABS: Troponin I < 0.012 ng/mL (0.000-0.034)
--- NOTE | 2022-05-21 02:16 | ADMGEN ---
This patient, Angus Stovall, was admitted to IMU Room 204-01 at 0215. Patient/family oriented to hospital policies and general routines including ID bracelet, bed and alarms, visiting hours, pain management, procedures, bathroom and other care routines, personal items, smoking policy, room service/diet, and visiting hours. Information on how to activate the Rapid Response Team has been discussed. Patient/Family are encouraged to report perceived risks to care and to ask questions if they do not understand what they are told or what they should do.
[2022-05-21] MEDS: ALBUTEROL SULFATE NEB 2.5 MG/3 ML INH 5 MG INHALATION ×4 (02:25→20:40)
[2022-05-21] MEDS: IPRATROPIUM BR 0.02% INH SOLN 0.5 MG/2.5 ML VIAL INHALATION ×4 (02:25→20:40)
[2022-05-21] MEDS: methylPREDNISolone SOD SUCC 40 MG VIAL IV PUSH (02:28)
[2022-05-21 03:57] LABS: Basophils Percent Auto 0.3 % (0.2-1.2); Hematocrit 27.9 % (42.0-52.0); Hemoglobin 8.7 g/dL (14.0-18.0); Immature Granulocyte Absolute 0.01 K/mm3 (0.00-0.031); Immature Granulocyte Percent A 0.3 % (0-0.5); Immature Platelet Fraction Pct 0.8 % (0.9-11.2); Lymphocytes Absolute Auto 0.34 K/mm3 (0.9-3.2); Mean Corpuscular HGB Conc 31.2 g/dl (32-36); Mean Corpuscular Hemoglobin 27.4 pg (26-34); Mean Corpuscular Volume 87.7 fl (80-100); Mean Platelet Volume 8.5 fl (7.4-10.4); Monocytes Absolute Auto 0.1 K/mm3 (0.1-0.6); Monocytes Percent Auto 3.5 % (2.6-8.5); Neutrophils Absolute Auto 3.3 K/mm3 (1.3-6.7); Neutrophils Percent Auto 86.9 % (45.5-73.1); Platelet Count Result 171 k/mm3 (150-375); Red Blood Count 3.18 M/mm3 (4.6-6.20); Red Cell Distribution Width 13.4 % (11.5-14.5); White Blood Count 3.8 K/mm3 (4.5-10.0)
[2022-05-21 04:19] LABS: Troponin I < 0.012 ng/mL (0.000-0.034)
[2022-05-21 04:28] LABS: Platelet Estimate Adequate (Adequate)
[2022-05-21 04:29] LABS: Alanine Aminotransferase 19 U/L (6-50); Albumin Level 3.4 g/dL (3.5-5.1); Alkaline Phosphatase 60 U/L (38-126); Anion Gap 7 mmol/L (8-16); Anisocytosis 1+ (NORMAL); Aspartate Amino Transferase 56 U/L (17-59); Bilirubin,Total 0.2 mg/dL (0.2-1.3); Blood Urea Nitrogen 16 mg/dL (9-20); Carbon Dioxide 24 mmol/L (22-30); Chloride 97 mmol/L (98-107); Estimated CRCL calculation 143 ml/min; Estimated Glomerular Filt Rate > 60; Glucose 150 mg/dL (65-110); Sodium 128 mmol/L (137-145)
[2022-05-21 04:30] LABS: Burr Cells 1+ (NORMAL); Ovalocytes 1+ (NORMAL); Schistocytes Rare (NORMAL)
--- NOTE | 2022-05-21 08:00 | P.PNIM_ITS ---
Progress Note: A&P Assessment and Plan (1) Acute hypercapnic respiratory failure: Code(s): J96.02 - Acute respiratory failure with hypercapnia Status: Acute Assessment and Plan: * Blood gases upon arrival showed a CO2 of 65.4 which then had increased 71.5. * BiPAP initiated in the ED * currently on 2L sating above 90% * Supplemental oxygen to maintain saturations >90% * Seems to be more acute on chronic as previous records show baseline CO2 is 55- 72 * Continue to trend respiratory system * Probably related to COPD (2) Influenza: Code(s): J11.1 - Influenza due to unidentified influenza virus with other respiratory manifestations Status: Acute Assessment and Plan: * Positive for Flu A * Continue Tamiflu day 2 * Probably exacerbating the COPD * supportive care * Did have a low grade fever at 100.4 probably related to Flu (3) COPD exacerbation: Code(s): J44.1 - Chronic obstructive pulmonary disease with (acute) exacerbation Status: Acute Assessment and Plan: * CT and Chest xray show chronic lung disease and calcifications * schedule breathing treatments * systemic steroids, titrate to 40mg PO for 5 days * Added Pulmozyme * Sputum culture ordered * Supplemental oxygen, wean to maintain saturations >90% * Most likely exacerbated due to Flu diagnosis (4) Chronic respiratory failure with hypoxia and hypercapnia: Code(s): J96.11 - Chronic respiratory failure with hypoxia; J96.12 - Chronic respiratory failure with hypercapnia Status: Acute Assessment and Plan: * requiring BiPAP upon admission * Currently stable * CO2 baseline is 55-72 * At baseline * Trend respiratory status (5) Chronic lower back pain: Qualifiers: Back pain laterality: midline Sciatica presence: with sciatica Code(s): M54.5 - Low back pain; G89.29 - Other chronic pain Status: Acute Assessment and Plan: * Tylenol as needed (6) Chronic anemia: Code(s): D64.9 - Anemia, unspecified Status: Acute Assessment and Plan: * Current H/H 8.7/27.9 * Anemia labs ordered * Probably iron deficiency anemia * Add iron supplementation if indicated * Trend labs * Transfuse if indicated (7) Hypertension: Code(s): I10 - Essential (primary) hypertension Status: Acute Assessment and Plan: * BP look at baseline to be 120-130s systolically * Continue home lisinopril and amlodipine * trend BP * adjust therapy as indicated (8) Chronic interstitial lung disease: Code(s): J84.9 - Interstitial pulmonary disease, unspecified Status: Acute Assessment and Plan: * CT and chest xray show chronic lung disease with calcification * Probably related to chronic COPD * Continue current therapy (9) Fever: Code(s): R50.9 - Fever, unspecified Status: Acute Assessment and Plan: * Fever of 100.4 upon arrival * Seems to be stable at this time * Blood cultures drawn * Change antibiotics to azithromycin at this time as this appears to be COPD and flu * Fever most likely related to Flu. Time Spent With Patient
--- NOTE | 2022-05-21 08:00 | PM.IMPN ---
Progress Note: A&P Assessment and Plan (1) Acute hypercapnic respiratory failure: Code(s): J96.02 - Acute respiratory failure with hypercapnia Status: Acute Assessment and Plan: Blood gases upon arrival showed a CO2 of 65.4 which then had increased 71.5. BiPAP initiated in the ED currently on 2L sating above 90% Supplemental oxygen to maintain saturations >90% Seems to be more acute on chronic as previous records show baseline CO2 is 55-72 Continue to trend respiratory system Probably related to COPD (2) Influenza: Code(s): J11.1 - Influenza due to unidentified influenza virus with other respiratory manifestations Status: Acute Assessment and Plan: Positive for Flu A Continue Tamiflu day 2 Probably exacerbating the COPD supportive care Did have a low grade fever at 100.4 probably related to Flu (3) COPD exacerbation: Code(s): J44.1 - Chronic obstructive pulmonary disease with (acute) exacerbation Status: Acute Assessment and Plan: CT and Chest xray show chronic lung disease and calcifications schedule breathing treatments systemic steroids, titrate to 40mg PO for 5 days Added Pulmozyme Sputum culture ordered Supplemental oxygen, wean to maintain saturations >90% Most likely exacerbated due to Flu diagnosis (4) Chronic respiratory failure with hypoxia and hypercapnia: Code(s): J96.11 - Chronic respiratory failure with hypoxia; J96.12 - Chronic respiratory failure with hypercapnia Status: Acute Assessment and Plan: requiring BiPAP upon admission Currently stable CO2 baseline is 55-72 At baseline Trend respiratory status (5) Chronic lower back pain: Qualifiers: Back pain laterality: midline Sciatica presence: with sciatica Code(s): M54.5 - Low back pain; G89.29 - Other chronic pain Status: Acute Assessment and Plan: Tylenol as needed (6) Chronic anemia: Code(s): D64.9 - Anemia, unspecified Status: Acute Assessment and Plan: Current H/H 8.7/27.9 Anemia labs ordered Probably iron deficiency anemia Add iron supplementation if indicated Trend labs Transfuse if indicated (7) Hypertension: Code(s): I10 - Essential (primary) hypertension Status: Acute Assessment and Plan: BP look at baseline to be 120-130s systolically Continue home lisinopril and amlodipine trend BP adjust therapy as indicated (8) Chronic interstitial lung disease: Code(s): J84.9 - Interstitial pulmonary disease, unspecified Status: Acute Assessment and Plan: CT and chest xray show chronic lung disease with calcification Probably related to chronic COPD Continue current therapy (9) Fever: Code(s): R50.9 - Fever, unspecified Status: Acute Assessment and Plan: Fever of 100.4 upon arrival Seems to be stable at this time Blood cultures drawn Change antibiotics to azithromycin at this time as this appears to be COPD and flu Fever most likely related to Flu. Time Spent With Patient Time with patient: Greater than 35 minutes Subjective Date/time seen: 05/21/22 08:00 Interval history: 05/21/22799 Patient is not very happy today. He is first upset that he was placed on a heart healthy diet, and stated I just left [facility] and they had me on a regular diet, and they know what they are doing. He is also stating that he is not having a breathing problem. He stated that he has not been experiencing any increase in sputum or changes in sputum. He denies any increased shortness of breath, or any wheezes. He does endorse a cough, which he did state has been around, however, after his many complaints and demands, finally stated that it has been more prev
[2022-05-21] MEDS: DORNASE ALFA INH SOLN 1 MG/ML 2.5 ML AMP 2.5 MG INHALATION ×2 (09:47→20:40)
[2022-05-21] MEDS: OSELTAMIVIR PHOSPHATE 75 MG CAPSULE PO ×2 (09:56→21:14)
[2022-05-21] MEDS: amLODIPine BESYLATE 5 MG TABLET PO (09:56)
[2022-05-21] MEDS: ENOXAPARIN 40 MG/0.4 ML SYRINGE SUB-Q (09:57)
[2022-05-21] MEDS: CHOLECALCIFEROL 400 UNITS TABLET (VIT D) PO (09:57)
[2022-05-21] MEDS: ASCORBIC ACID 500 MG TABLET PO (09:57)
[2022-05-21] MEDS: GABAPENTIN 100 MG CAPSULE 200 MG PO ×3 (09:57→18:15)
[2022-05-21] MEDS: lisinopriL 20 MG TABLET PO (09:58)
[2022-05-21] MEDS: ROFLUMILAST 500 MCG TABLET PO (09:58)
[2022-05-21] MEDS: MULTIVITAMINS THERAPEUTIC TAB (*BKC) 1 TABLET PO (09:58)
[2022-05-21] MEDS: predniSONE 20 MG TABLET 40 MG PO (09:59)
[2022-05-21] MEDS: AZITHROMYCIN 250 MG TABLET 500 MG PO (09:59)
[2022-05-21] MEDS: FLUTICASONE PROPIONATE 0.05% NA SPR 16 GM BTL (*BKC) 1 SPRAY NASAL (10:00)
[2022-05-21] MEDS: PANTOPRAZOLE 40 MG TABLET PO ×2 (10:01→18:16)
[2022-05-21 10:52] LABS: Iron 24 ug/dL (49-181)
[2022-05-21 11:01] LABS: Percent Iron Saturation 8 % (20-50)
--- NOTE | 2022-05-21 11:08 | PC.NURSE ---
Report given to RADHA Jorgensen with 3 med-surg at 1048. All questions answered and plan of care reviewed. Patient to go to room 312.
[2022-05-21 12:06] LABS: Folic Acid 7.9 ng/mL (2.76->20)
[2022-05-21 14:16] LABS: Transferrin 195 mg/dL (206-381)
[2022-05-21] MEDS: TAMSULOSIN HCL 0.4 MG CAPSULE PO (21:14)
[2022-05-21] MEDS: LATANOPROST 0.005% OP SOLN 2.5 ML BTL 1 DROP EACH EYE (21:14)
[2022-05-21] MEDS: ATORVASTATIN 10 MG TABLET PO (21:14)
[2022-05-21] MEDS: MELATONIN 3 MG TABLET 9 MG PO (21:15)
[2022-05-21] MEDS: guaiFENesin 12 HR 600 MG TABCR PO (21:15)
[2022-05-21] MEDS: BRIMONIDINE TARTRATE 0.2% OP SOLN 5 ML BTL 1 DROP EACH EYE (21:15)
[2022-05-21] MEDS: HYDROcodone/acetaminophen (*CRX) 5-325 MG TABLET 1 TAB PO (22:36)
[2022-05-21] MEDS: LORazepam (*CRX) 0.5 MG TABLET PO (22:56)
[2022-05-22 04:37] VITALS: BP 131/59; PULSE 83; RESP 18; TEMP 36.2; O2SAT 94
[2022-05-22] MEDS: BRIMONIDINE TARTRATE 0.2% OP SOLN 5 ML BTL 1 DROP EACH EYE ×2 (05:31→13:35)
[2022-05-22 06:59] LABS: Hematocrit 30.1 % (42.0-52.0); Hemoglobin 9.7 g/dL (14.0-18.0); Immature Granulocyte Absolute 0.01 K/mm3 (0.00-0.031); Immature Granulocyte Percent A 0.3 % (0-0.5); Lymphocytes Absolute Auto 0.43 K/mm3 (0.9-3.2); Lymphocytes Percent Auto 12.5 % (18.3-44.2); Mean Corpuscular HGB Conc 32.2 g/dl (32-36); Mean Corpuscular Hemoglobin 27.4 pg (26-34); Mean Platelet Volume 8.4 fl (7.4-10.4); Monocytes Absolute Auto 0.7 K/mm3 (0.1-0.6); Monocytes Percent Auto 18.9 % (2.6-8.5); Neutrophils Absolute Auto 2.4 K/mm3 (1.3-6.7); Neutrophils Percent Auto 68.3 % (45.5-73.1); Platelet Count Result 189 k/mm3 (150-375); Red Blood Count 3.54 M/mm3 (4.6-6.20); Red Cell Distribution Width 13.2 % (11.5-14.5); White Blood Count 3.4 K/mm3 (4.5-10.0)
[2022-05-22 07:28] LABS: Alanine Aminotransferase 23 U/L (6-50); Albumin Level 3.5 g/dL (3.5-5.1); Alkaline Phosphatase 59 U/L (38-126); Anion Gap 6 mmol/L (8-16); Aspartate Amino Transferase 62 U/L (17-59); Bilirubin,Total < 0.1 mg/dL (0.2-1.3); Blood Urea Nitrogen 11 mg/dL (9-20); Calcium 8.3 mg/dL (8.4-10.2); Carbon Dioxide 32 mmol/L (22-30); Chloride 88 mmol/L (98-107); Estimated CRCL calculation 143 ml/min; Estimated Glomerular Filt Rate > 60; Glucose 100 mg/dL (65-110); Magnesium 1.7 mg/dL (1.6-2.3); Potassium 3.2 mmol/L (3.4-5.0); Sodium 126 mmol/L (137-145)
[2022-05-22 09:00] VITALS: O2SAT 96
[2022-05-22] MEDS: ALBUTEROL SULFATE NEB 2.5 MG/3 ML INH 5 MG INHALATION ×2 (09:00→14:22)
[2022-05-22 09:01] VITALS: PULSE 76; RESP 18; O2SAT 96
[2022-05-22] MEDS: IPRATROPIUM BR 0.02% INH SOLN 0.5 MG/2.5 ML VIAL INHALATION ×2 (09:01→14:22)
[2022-05-22] MEDS: IRON SUCROSE COMPLEX 500 MG in SODIUM CHLORIDE 0.9% IV 250 ML 78 MG IVPB (09:03)
[2022-05-22] MEDS: SODIUM CHLORIDE 0.9% IV 500 ML 999 ML IV CONT (09:03)
[2022-05-22] MEDS: MAGNESIUM SULF 2 GM/WATER 50ML 2 GM/50 ML BAG IVPB (09:03)
[2022-05-22] MEDS: GABAPENTIN 100 MG CAPSULE 200 MG PO ×2 (09:10→13:35)
[2022-05-22] MEDS: POTASSIUM CHLORIDE 20 MEQ TABLET 40 MEQ PO ×2 (09:10→16:26)
[2022-05-22] MEDS: amLODIPine BESYLATE 5 MG TABLET PO (09:10)
[2022-05-22 09:11] VITALS: PULSE 74; RESP 18
[2022-05-22] MEDS: lisinopriL 20 MG TABLET PO (09:11)
[2022-05-22] MEDS: MULTIVITAMINS THERAPEUTIC TAB (*BKC) 1 TABLET PO (09:11)
[2022-05-22] MEDS: predniSONE 20 MG TABLET 40 MG PO (09:11)
[2022-05-22] MEDS: guaiFENesin 12 HR 600 MG TABCR PO (09:11)
[2022-05-22] MEDS: PANTOPRAZOLE 40 MG TABLET PO ×2 (09:11→16:27)
[2022-05-22] MEDS: AZITHROMYCIN 250 MG TABLET 500 MG PO (09:11)
[2022-05-22] MEDS: ENOXAPARIN 40 MG/0.4 ML SYRINGE SUB-Q (09:11)
[2022-05-22] MEDS: ASCORBIC ACID 500 MG TABLET PO (09:11)
[2022-05-22] MEDS: CHOLECALCIFEROL 400 UNITS TABLET (VIT D) PO (09:11)
[2022-05-22] MEDS: ROFLUMILAST 500 MCG TABLET PO (09:11)
[2022-05-22] MEDS: OSELTAMIVIR PHOSPHATE 75 MG CAPSULE PO (09:11)
[2022-05-22] MEDS: SODIUM CHLORIDE 500 MG TABLET PO ×2 (09:11→16:26)
[2022-05-22] MEDS: FLUTICASONE PROPIONATE 0.05% NA SPR 16 GM BTL (*BKC) 1 SPRAY NASAL (09:12)
--- NOTE | 2022-05-22 09:30 | PM.DS ---
DS: Admitting Diagnosis Discharge Date 05/22/22929 Admitting Diagnosis acute on chronic hypercapnic respiratory failure, Flu infection DS: Discharge Diagnosis Discharge Diagnosis (1) Acute hypercapnic respiratory failure: Code(s): J96.02 - Acute respiratory failure with hypercapnia Status: Acute Assessment and Plan: Blood gases upon arrival showed a CO2 of 65.4 which then had increased 71.5. BiPAP initiated in the ED currently on 2L sating above 90% Supplemental oxygen to maintain saturations >90% Seems to be more acute on chronic as previous records show baseline CO2 is 55-72 Continue to trend respiratory system Probably related to COPD (2) Influenza: Code(s): J11.1 - Influenza due to unidentified influenza virus with other respiratory manifestations Status: Acute Assessment and Plan: Positive for Flu A Continue Tamiflu day 3 Probably exacerbating the COPD supportive care Did have a low grade fever at 100.4 probably related to Flu (3) COPD exacerbation: Code(s): J44.1 - Chronic obstructive pulmonary disease with (acute) exacerbation Status: Acute Assessment and Plan: CT and Chest xray show chronic lung disease and calcifications schedule breathing treatments systemic steroids, titrate to 40mg PO for 5 days Added Pulmozyme Sputum culture ordered Supplemental oxygen, wean to maintain saturations >90% Most likely exacerbated due to Flu diagnosis (4) Chronic respiratory failure with hypoxia and hypercapnia: Code(s): J96.11 - Chronic respiratory failure with hypoxia; J96.12 - Chronic respiratory failure with hypercapnia Status: Acute Assessment and Plan: requiring BiPAP upon admission Currently stable CO2 baseline is 55-72 At baseline Trend respiratory status (5) Chronic lower back pain: Qualifiers: Back pain laterality: midline Sciatica presence: with sciatica Code(s): M54.5 - Low back pain; G89.29 - Other chronic pain Status: Acute Assessment and Plan: Tylenol as needed (6) Chronic anemia: Code(s): D64.9 - Anemia, unspecified Status: Acute Assessment and Plan: Current H/H 9.7/30.1 Anemia labs iron 24, TIBC 283, % saturation 8, transferrin 195, B12 749, folate 7.9. One dose of IV iron given Probably iron deficiency anemia increased iron supplementation at the [facility] to 325 b.i.d. Trend labs Transfuse if indicated (7) Hypertension: Code(s): I10 - Essential (primary) hypertension Status: Acute Assessment and Plan: BP look at baseline to be 131/59 Continue home lisinopril and amlodipine trend BP adjust therapy as indicated (8) Chronic interstitial lung disease: Code(s): J84.9 - Interstitial pulmonary disease, unspecified Status: Acute Assessment and Plan: CT and chest xray show chronic lung disease with calcification Probably related to chronic COPD Continue current therapy (9) Fever: Code(s): R50.9 - Fever, unspecified Status: Acute Assessment and Plan: Fever of 100.4 upon arrival Seems to be stable at this time Blood cultures drawn Change antibiotics to azithromycin at this time as this appears to be COPD and flu Fever most likely related to Flu. DS: Summary Hospital Course Hospital Course: patient is 66 year old male with a past medical history of COPD, hyperlipidemia, hyponatremia, hypertension who presented to the ED with complaints of shortness of breath and fever. Upon arrival patient denied any breathing issues and did not have any wheezes however blood gas did reveal hypercapnic respiratory failure. Patient was placed on BiPAP in the ED which was removed shortly thereafter. Labs were stable upon arrival.
--- NOTE | 2022-05-22 09:30 | P.DS_ITS ---
DS: Admitting Diagnosis Discharge Date 05/22/22929 Admitting Diagnosis acute on chronic hypercapnic respiratory failure, Flu infection DS: Discharge Diagnosis Discharge Diagnosis (1) Acute hypercapnic respiratory failure: Code(s): J96.02 - Acute respiratory failure with hypercapnia Status: Acute Assessment and Plan: * Blood gases upon arrival showed a CO2 of 65.4 which then had increased 71.5. * BiPAP initiated in the ED * currently on 2L sating above 90% * Supplemental oxygen to maintain saturations >90% * Seems to be more acute on chronic as previous records show baseline CO2 is 55- 72 * Continue to trend respiratory system * Probably related to COPD (2) Influenza: Code(s): J11.1 - Influenza due to unidentified influenza virus with other respiratory manifestations Status: Acute Assessment and Plan: * Positive for Flu A * Continue Tamiflu day 3 * Probably exacerbating the COPD * supportive care * Did have a low grade fever at 100.4 probably related to Flu (3) COPD exacerbation: Code(s): J44.1 - Chronic obstructive pulmonary disease with (acute) exacerbation Status: Acute Assessment and Plan: * CT and Chest xray show chronic lung disease and calcifications * schedule breathing treatments * systemic steroids, titrate to 40mg PO for 5 days * Added Pulmozyme * Sputum culture ordered * Supplemental oxygen, wean to maintain saturations >90% * Most likely exacerbated due to Flu diagnosis (4) Chronic respiratory failure with hypoxia and hypercapnia: Code(s): J96.11 - Chronic respiratory failure with hypoxia; J96.12 - Chronic respiratory failure with hypercapnia Status: Acute Assessment and Plan: * requiring BiPAP upon admission * Currently stable * CO2 baseline is 55-72 * At baseline * Trend respiratory status (5) Chronic lower back pain: Qualifiers: Back pain laterality: midline Sciatica presence: with sciatica Code(s): M54.5 - Low back pain; G89.29 - Other chronic pain Status: Acute Assessment and Plan: * Tylenol as needed (6) Chronic anemia: Code(s): D64.9 - Anemia, unspecified Status: Acute Assessment and Plan: * Current H/H 9.7/30.1 * Anemia labs iron 24, TIBC 283, % saturation 8, transferrin 195, B12 749, folate 7.9. * One dose of IV iron given * Probably iron deficiency anemia * increased iron supplementation at the [facility] to 325 b.i.d. * Trend labs * Transfuse if indicated (7) Hypertension: Code(s): I10 - Essential (primary) hypertension Status: Acute Assessment and Plan: * BP look at baseline to be 131/59 * Continue home lisinopril and amlodipine * trend BP * adjust therapy as indicated (8) Chronic interstitial lung disease: Code(s): J84.9 - Interstitial pulmonary disease, unspecified Status: Acute Assessment and Plan: * CT and chest xray show chronic lung disease with calcification * Probably related to chronic COPD * Continue current therapy (9) Fever: Code(s): R50.9 - Fever, unspecified Status: Acute Assessment and Plan: * Fever of 100.4 upon ar
[2022-05-22 12:56] LABS: Hematocrit 32.9 % (42.0-52.0); Hemoglobin 10.8 g/dL (14.0-18.0); Immature Granulocyte Absolute 0.02 K/mm3 (0.00-0.031); Immature Granulocyte Percent A 0.3 % (0-0.5); Lymphocytes Absolute Auto 0.25 K/mm3 (0.9-3.2); Lymphocytes Percent Auto 4.3 % (18.3-44.2); Mean Corpuscular HGB Conc 32.8 g/dl (32-36); Mean Corpuscular Volume 85.2 fl (80-100); Mean Platelet Volume 8.5 fl (7.4-10.4); Monocytes Absolute Auto 0.3 K/mm3 (0.1-0.6); Neutrophils Absolute Auto 5.2 K/mm3 (1.3-6.7); Neutrophils Percent Auto 90.4 % (45.5-73.1); Platelet Count Result 192 k/mm3 (150-375); Red Blood Count 3.86 M/mm3 (4.6-6.20); Red Cell Distribution Width 13.4 % (11.5-14.5); White Blood Count 5.8 K/mm3 (4.5-10.0)
[2022-05-22 13:11] LABS: Alanine Aminotransferase 26 U/L (6-50); Albumin Level 3.8 g/dL (3.5-5.1); Alkaline Phosphatase 71 U/L (38-126); Anion Gap 5 mmol/L (8-16); Aspartate Amino Transferase 67 U/L (17-59); Bilirubin,Total 0.4 mg/dL (0.2-1.3); Blood Urea Nitrogen 10 mg/dL (9-20); Calcium 8.4 mg/dL (8.4-10.2); Carbon Dioxide 32 mmol/L (22-30); Chloride 93 mmol/L (98-107); Estimated CRCL calculation 143 ml/min; Estimated Glomerular Filt Rate > 60; Glucose 125 mg/dL (65-110); Potassium 3.3 mmol/L (3.4-5.0); Sodium 130 mmol/L (137-145)
[2022-05-22] MEDS: BRINZOLAMIDE 1% OPHTH SUSP 10 ML 1 DROP EACH EYE (13:35)
[2022-05-22] MEDS: LORATADINE/PSEUDOEPHEDRINE (*CRX) 10/240 MG TABLET ER 24 HR 1 TAB PO (13:35)
[2022-05-22 14:00] VITALS: BP 169/73; PULSE 104; RESP 18; TEMP 36.1; O2SAT 94
[2022-05-22 14:30] VITALS: PULSE 81; RESP 18
[2022-05-22 14:51] LABS: Base Excess ABG 2.9 mEq/l (+/-2.0); Carboxyhemoglobin 0.3 % THb (0-2.0); Fractional Inspired Oxygen 28 %; HCO3 ABG 27.9 mEq/l (22.0-26.0); Methemoglobin ABG 0.4 %THb (0-1.5); Oxyhemoglobin 97.6 % THb (90.0-100.0); PCO2 ABG 44.4 mmHg (35.0-45.0); PO2 ABG 155.2 mmHg (80.0-100.0); PO2 FiO2 Ratio Arterial Blood 5.54 %; Reduced Hemoglobin 1.7 %THb (0-5.0); Total Hemoglobin 12.9 g/dL (12.0-18.0); pH ABG 7.416 (7.350-7.450)
[2022-05-22 14:52] LABS: Device NASAL CANNULA; Modified Allen's Test Pass; Site Drawn LEFT RADIAL
[2022-05-22 15:20] LABS: EDCOVIDSCREEN Negative (Negative)
== END 2022-05-22 14:30 | DRG 152 ==
LOC: ANHED 21:11 → ANHIMU 05-21 01:49 → ANH3MEDSUR 05-21 13:35 → ANHIMU 05-25 13:20
PROVIDERS: Admitting Provider Internal Medicine; Emergency Provider Emergency Medicine; Visit Provider Nurse Practitioner
DX: J11.1 Influenza due to unidentified influenza virus with other respiratory manifestations (principal); J96.22 Acute and chronic respiratory failure with hypercapnia; J84.9 Interstitial pulmonary disease, unspecified; G95.9 Disease of spinal cord, unspecified; I50.32 Chronic diastolic (congestive) heart failure; J96.11 Chronic respiratory failure with hypoxia; E87.1 Hypo-osmolality and hyponatremia; J43.9 Emphysema, unspecified; D50.9 Iron deficiency anemia, unspecified; F41.9 Anxiety disorder, unspecified; F32.A Depression, unspecified; G89.29 Other chronic pain; I65.23 Occlusion and stenosis of bilateral carotid arteries; I11.0 Hypertensive heart disease with heart failure; I73.9 Peripheral vascular disease, unspecified; I27.20 Pulmonary hypertension, unspecified; I95.9 Hypotension, unspecified; M54.42 Lumbago with sciatica, left side; M54.41 Lumbago with sciatica, right side; N40.0 Benign prostatic hyperplasia without lower urinary tract symptoms; Z20.822 Contact with and (suspected) exposure to COVID-19; Z99.81 Dependence on supplemental oxygen; Z95.820 Peripheral vascular angioplasty status with implants and grafts; Z87.891 Personal history of nicotine dependence; Z28.21 Immunization not carried out because of patient refusal
CPT/HCPCS: 36415; 36600; 51701; 71045; 71275; 80053; 81003; 82375; 82607; 82728; 82746; 82805; 83050; 83540; 83550; 83605; 83690; 83735; 83880; 84466; 84484; 85025; 85055; 85610; 85730; 86140; 87040; 87426; 87637; 93005; 94002; 94003; 94640; 96365; 96367; 99291; A9270; C9803; J0692; J1650; J1720; J1756; J2920; J3370; J3475; J7030; J7040; J7050; J7512; Q9967